=== PATIENT | male | born 1940 | race Caucasian/White ===

== ENCOUNTER → 2020-01-28 09:44 | Outpatient (BNVA) | payer MEDICARE, OTHER, SELFPAY | PROVIDERS: PCP Internal Medicine; Visit Provider Urology | DX: C61 Malignant neoplasm of prostate (principal) | CPT/HCPCS: 96402; J9217 ==

== ENCOUNTER → 2020-07-28 10:26 | Outpatient (BNVA) | payer MEDICARE, SELFPAY | PROVIDERS: Visit Provider Urology | DX: C61 Malignant neoplasm of prostate (principal) | CPT/HCPCS: 96402; 99212; J9217 ==

== ENCOUNTER → 2021-02-14 10:32 | Outpatient (BNVA) | payer MEDICARE, SELFPAY | PROVIDERS: Visit Provider Urology | DX: C61 Malignant neoplasm of prostate (principal) | CPT/HCPCS: 99212 ==

== ENCOUNTER → 2021-06-28 10:06 | Outpatient (BNVA) | payer MEDICARE, SELFPAY | PROVIDERS: Visit Provider Urology | DX: C61 Malignant neoplasm of prostate (principal) | CPT/HCPCS: Q3014 ==

== ENCOUNTER → 2021-11-29 08:49 | Outpatient (BNVA) | payer MEDICARE, SELFPAY | PROVIDERS: Visit Provider Urology | DX: C61 Malignant neoplasm of prostate (principal) | CPT/HCPCS: Q3014 ==

== ENCOUNTER → 2022-04-04 09:47 | Outpatient (BNVA) | payer MEDICARE, SELFPAY | PROVIDERS: Visit Provider Urology | DX: C61 Malignant neoplasm of prostate (principal); R97.20 Elevated prostate specific antigen [PSA]; Z79.82 Long term (current) use of aspirin; Z79.899 Other long term (current) drug therapy | CPT/HCPCS: Q3014 ==

== ENCOUNTER 2022-12-25 11:15 | Outpatient (AMB) | payer MEDICARE, SELFPAY ==
--- NOTE | 2022-12-25 11:48 | MHC.OFFVIS ---
Intake Intake Visit Reasons: 6m/PSA(set) Intake Note: Patient is present for Follow Up PSA Urology Med: Finasteride, Antibiotic Allergy: None Blood Thinner: None Pharmacy: [facility] Allergies No Known Allergies Allergy (Verified 12/25/22 11:49) HPI HPI Comments History of Present Illness Details Juan Antonio is a very pleasant male. He is a patient of Dr. Ventura. He is seen for the following urologic conditions - prostate cancer Prostate cancer Stable labs PSA 0.3 Feels good energy Discussed daughters the eldest had stage IV lung cancer on could true data, youngest has breast cancer on tamoxifen Prostate Cancer - Grade Group 3 2018 intermittent hormone therapy Diagnosed with Dr. Baltazar in 2018 Initial pathology [place] 6, 7. Component of [place] 4 + 3 Initial PSA 7.25 Initial management GnRH - he wanted to continue this rather than radiation - Last GnRH 04/2019 PSA 04/27 0.8, 01/25 <0.1, 07/27 <0.1, 01/26 <0.1 T 3, - 05/30 <0.1 T 106, 10/27 <0.1 T 285, 03/29 0.3 T 305, , 10/28 0.3 Current therapy finasteride - low level 3x a week Plan for PSA surveillance 6 months [facility] Medical History (Updated 11/29/21 @ 09:55 by Jose Irving MD) Gout Attention deficit hyperactivity disorder Allergic rhinitis Prostate cancer Elevated PSA Primary osteoarthritis of left wrist Surgical History History of surgery Review of Systems Const Denies chills and Denies fever(s) Card Reports no additional complaints and Denies syncope Resp Denies cough GI Denies abdominal pain and Denies heartburn Reports as per HPI and Denies change in libido Neuro Denies syncope Psych Denies change in libido Endo Denies change in libido Physical Exam Const General: cooperative, healthy appearing, comfortable and no acute distress Orientation/consciousness: patient oriented x3 HEENT Face and sinus: Yes normal facial exam Mouth: moist mucous membranes Neck Neck: Yes normal visual inspection, Yes full ROM and Yes trachea midline Chest Chest palpation & inspection: normal inspection of the chest Resp Effort & Inspection: normal respiratory effort, able to speak in complete sentences and no respiratory distress GI Inspection: Yes normal to inspection Back/Spine/Pelvis Cervical Spine: normal cervical lordosis Thoracic/Lumbar Spine: thoracic and lumbar spine normal to inspection Skin General skin exam: no rashes or lesions noted Neuro General: patient oriented x3, gait normal, tone normal and moves all extremities Extrem General: Yes normal to inspection and Yes capillary refill normal Assessment & Plan Assessment & Plan (1) Prostate cancer: Comment: Grade group 3 - intermittent hormone therapy Code(s): C61 - Malignant neoplasm of prostate Plan Six month follow-up PSA Orders: Orders Prostate Specific Antigen 6 Months C61 - Malignant neoplasm of prostate Patient Instructions: Imaging studies, laboratory and physical exam results were discussed and reviewed in detail. No major barriers to patient understanding were identified. An opportunity to ask questions regarding the treatment plan was provided. All questions were answered. The patient expressed understanding and agreement with the above treatment plan. The patient is aware they should contact our office by phone for worsening of their current condition or the appearance of new urologic symptoms. Compliance is encouraged with any medications and followup testing that is ordered. It is a privilege to participate in the urologic care of your patient. If you have any questions or concerns regarding treatment for the above conditions, or other urologic issues, please do not hesitate to contact me. The office telephone contact is [phone]. This note is constructed using voice recognition software. While every effort has been made to ensure accuracy medical transcription editor errors may have been included. Yours sincerely, Dr Jose Irving MD, [facility] - Urology Providers of Expert, Compassionate Care for the Genitourinary System Coding Level of Care Code Est Pt Level 4 (72596) Diagnoses Prostate cancer C61
== END 2022-12-25 12:05 | disposition home or self-care (01) ==
PROVIDERS: Visit Provider Urology
DX: C61 Malignant neoplasm of prostate (principal)
CPT/HCPCS: 99213

== ENCOUNTER → 2022-12-25 11:15 | Outpatient (BNVA) | payer MEDICARE, SELFPAY | PROVIDERS: Visit Provider Urology | DX: C61 Malignant neoplasm of prostate (principal); R97.20 Elevated prostate specific antigen [PSA]; Z80.1 Family history of malignant neoplasm of trachea, bronchus and lung; Z80.3 Family history of malignant neoplasm of breast | CPT/HCPCS: 99212 ==

== ENCOUNTER 2023-06-25 08:39 | Outpatient (AMB) | payer MEDICARE, SELFPAY ==
--- NOTE | 2023-06-25 08:40 | MHC.OFFVIS ---
Intake Intake Visit Reasons: 6M PSA(SET)VM to confirm Intake Note: Patient is Present for Follow Up PSA Urology Medication:Finasteride Antibiotic Allergies: None Blood Thinners: None Confirmed pharmacy: [facility] Allergies No Known Allergies Allergy (Verified 06/25/23 08:43) HPI HPI Comments History of Present Illness Details Juan Antonio is a very pleasant male. He is a patient of Dr. Ventura. He is seen for the following urologic conditions - prostate cancer - intermittent hormone therapy Stable labs PSA 0.4 Otherwise feeling relatively good control of urination Discussed daughters the eldest had stage IV lung cancer on Keytruda, youngest has breast cancer on tamoxifen Prostate Cancer - Grade Group 3 2018 intermittent hormone therapy Diagnosed with Dr. Baltazar in 2018 Initial pathology [place] 6, 7. Component of [place] 4 + 3 Initial PSA 7.25 Initial management GnRH - he wanted to continue this rather than radiation - Last GnRH 04/2019 PSA 04/27 0.8, 01/25 <0.1, 07/27 <0.1, 01/26 <0.1 T 3, - 05/30 <0.1 T 106, 10/27 <0.1 T 285, 03/29 0.3 T 305, , 10/28 0.3, 06/29 0.4 Current therapy finasteride - low level 3x a week Plan for PSA surveillance 6 months PFSH Medical History Gout Attention deficit hyperactivity disorder Allergic rhinitis Prostate cancer Elevated PSA Primary osteoarthritis of left wrist Surgical History History of surgery Review of Systems Const Denies chills and Denies fever(s) Card Reports no additional complaints and Denies syncope Resp Denies cough GI Denies abdominal pain and Denies heartburn Reports as per HPI and Denies change in libido Neuro Denies syncope Psych Denies change in libido Endo Denies change in libido Physical Exam Const General: cooperative, healthy appearing, comfortable and no acute distress Orientation/consciousness: patient oriented x3 HEENT Face and sinus: Yes normal facial exam Mouth: moist mucous membranes Neck Neck: Yes normal visual inspection, Yes full ROM and Yes trachea midline Chest Chest palpation & inspection: normal inspection of the chest Resp Effort & Inspection: normal respiratory effort, able to speak in complete sentences and no respiratory distress GI Inspection: Yes normal to inspection Back/Spine/Pelvis Cervical Spine: normal cervical lordosis Thoracic/Lumbar Spine: thoracic and lumbar spine normal to inspection Skin General skin exam: no rashes or lesions noted Neuro General: patient oriented x3, gait normal, tone normal and moves all extremities Extrem General: Yes normal to inspection and Yes capillary refill normal Assessment & Plan Assessment & Plan (1) Prostate cancer: Comment: Grade group 3 - intermittent hormone therapy Code(s): C61 - Malignant neoplasm of prostate Plan Six-month follow-up PSA Orders: Orders Prostate Specific Antigen 6 Months C61 - Malignant neoplasm of prostate Patient Instructions: Imaging studies, laboratory and physical exam results were discussed and reviewed in detail. No major barriers to patient understanding were identified. An opportunity to ask questions regarding the treatment plan was provided. All questions were answered. The patient expressed understanding and agreement with the above treatment plan. The patient is aware they should contact our office by phone for worsening of their current condition or the appearance of new urologic symptoms. Compliance is encouraged with any medications and followup testing that is ordered. It is a privilege to participate in the urologic care of your patient. If you have any questions or concerns regarding treatment for the above conditions, or other urologic issues, please do not hesitate to contact me. The office telephone contact is [phone]. This note is constructed using voice recognition software. While every effort has been made to ensure accuracy racking technician errors may have been included. Yours sincerely, Dr Jose Irving MD, [facility] - Urology Providers of Expert, Compassionate Care for the Genitourinary System Coding Level of Care Code Est Pt Level 3 (28148) Diagnoses Prostate cancer C61
== END 2023-06-25 09:31 | disposition home or self-care (01) ==
PROVIDERS: Visit Provider Urology
DX: C61 Malignant neoplasm of prostate (principal)
CPT/HCPCS: 99213

== ENCOUNTER → 2023-06-25 08:39 | Outpatient (BNVA) | payer MEDICARE, SELFPAY | PROVIDERS: Visit Provider Urology | DX: C61 Malignant neoplasm of prostate (principal) | CPT/HCPCS: 99212 ==

== ENCOUNTER 2024-01-22 09:46 | Outpatient (AMB) | payer MEDICARE, SELFPAY ==
--- NOTE | 2024-01-22 09:46 | A.OFFVIS_ITS ---
Intake Visit Reasons: 6M PSA(set) Intake Note: Patient is Present for Telephone Follow Up PSA Urology Med: Finasteride Antibiotic Allergy: None Blood Thinner:None Recent PSA: 12/20/23 PSA: 0.4 Analytical Lab Analyst Required: No Accompanied by: Self / Same As Patient Allergies No Known Allergies Allergy (Verified 01/22/24 09:48) HPI Comments Details: Juan Antonio is a very pleasant male. He is a patient of Dr. Ventura. He is seen for the following urologic conditions - prostate cancer - intermittent hormone therapy Telemedicine Evaluation 15 min Consultation [employer] [place] Video 6 month follow-up Stable labs PSA 0.4 Otherwise feeling relatively good control of urination Discussed daughters the eldest had stage IV lung cancer on Keytruda, youngest has breast cancer on tamoxifen Prostate Cancer - Grade Group 3 2018 intermittent hormone therapy Diagnosed with Dr. Baltazar in 2018 Initial pathology [place] 6, 7. Component of [place] 4 + 3 Initial PSA 7.25 Initial management GnRH - he wanted to continue this rather than radiation - Last GnRH 04/2019 PSA 04/27 0.8, 01/25 <0.1, 07/27 <0.1, 01/26 <0.1 T 3, 05/30 <0.1 T 106, 10/27 <0.1 T 285, 03/29 0.3 T 305, , 10/28 0.3, 06/29 0.4, 12/30 0.4 Current therapy finasteride - low level 3x a week Plan for PSA surveillance 6 months PFS Medical History Gout Attention deficit hyperactivity disorder Allergic rhinitis Prostate cancer Elevated PSA Primary osteoarthritis of left wrist Surgical History History of surgery Review of Systems Const All systems reviewed & are unremarkable except as noted in HPI and below Reports no additional complaints Resp Reports no additional complaints GI Reports no additional complaints Reports as per HPI Musc Reports no additional complaints Physical Exam Telemedicine evaluation Appropriate responses Regular breathing rate and rhythm HEENT Head: Yes normal to inspection Ears: hearing grossly normal bilaterally Eyes General: appearance normal, both eyes and all related structures Neck Neck: Yes normal visual inspection Chest Chest palpation & inspection: normal inspection of the chest Resp Effort & Inspection: normal respiratory effort and able to speak in complete sentences Telehealth Telehealth Telehealth Platform: [employer] Location of provider rendering services: practice address Location of patient: address on file Patient Identification confirmed using: Name, : Yes Telehealth method: video Patient verbally consented to treatment: Yes Patient verbally consented to billing insurance company: Yes Patient informed of any privacy concerns related to visit: Yes Minutes spent on Phone/Video with Pt.: 15 Assessment & Plan Assessment & Plan (1) Prostate cancer: Comment: Grade group 3 - intermittent hormone therapy Code(s): C61 - Malignant neoplasm of prostate Category: Medical Plan Six-month follow-up PSA Orders: Orders Prostate Specific Antigen 6 Months C61 - Malignant neoplasm of prostate Patient Instructions: Imaging studies, laboratory and physical exam results were discussed and reviewed in detail. No major barriers to patient understanding were identified. An opportunity to ask questions regarding the treatment plan was provided. All questions were answered. The patient expressed understanding and agreement with the above treatment plan. The patient is aware they should contact our office by phone for worsening of their current condition or the appearance of new urologic symptoms. Compliance is encouraged with any medications and followup testing that is ordered. It is a privilege to participate in the urologic care of your patient. If you have any questions or concerns regarding treatment for the above conditions, or other urologic issues, please do not hesitate to contact me. The office telephone contact is [phone]. This note is constructed using voice recognition software. While every effort has been made to ensure accuracy dinkey engine firer/fireman errors may have been included. Yours sincerely, Dr Jose Irving MD, [facility] - Urology Providers of Expert, Compassionate Care for the Genitourinary System Coding Level of Care Code Tele Est Pt Level 3 (76952) Diagnoses Prostate cancer C61
== END 2024-01-22 14:06 | disposition home or self-care (01) ==
LOC: HO.HUSH 09:46
PROVIDERS: Visit Provider Urology
DX: C61 Malignant neoplasm of prostate (principal)
CPT/HCPCS: 99213

== ENCOUNTER → 2024-01-22 09:46 | Outpatient (BNVA) | payer MEDICARE, SELFPAY | PROVIDERS: Visit Provider Urology ==

== ENCOUNTER 2024-07-23 10:10 | Outpatient (AMB) | payer MEDICARE, SELFPAY ==
--- NOTE | 2024-07-23 10:10 | A.OFFVIS_ITS ---
Intake Visit Reasons: 6M PSA Intake Note: Patient is present for 6M/PSA Urology Medication:FINASTERIDE,ALLOPURINOL Antibiotic Allergy:NONE Blood Thinner:NONE Corporate Compliance Officer Required: No Allergies No Known Allergies Allergy (Verified 07/23/24 10:11) HPI Comments Details: Juan Antonio is a very pleasant male. He is a patient of Dr. Ventura. He is seen for the following urologic conditions - prostate cancer - intermittent hormone therapy Telemedicine Evaluation 15 min Consultation [email or web address] [place] Video 6 month follow-up Otherwise feeling relatively good control of urination Discussed daughters the eldest had stage IV lung cancer on Keytruda, youngest has breast cancer on tamoxifen Prostate Cancer - Grade Group 3 2018 intermittent hormone therapy Diagnosed with Dr. Baltazar in 2018 Initial pathology [place] 6, 7. Component of [place] 4 + 3 Initial PSA 7.25 Initial management GnRH - he wanted to continue this rather than radiation - Last GnRH 04/2019 PSA 04/27 0.8, 01/25 <0.1, 07/27 <0.1, 01/26 <0.1 T 3, 05/30 <0.1 T 106, 10/27 <0.1 T 285, 03/29 0.3 T 305, 10/28 0.3, 06/29 0.4, 12/30 0.4, 06/30 0.5 Current therapy finasteride - low level 3x a week Plan for PSA surveillance 6 months PFSH Medical History Gout Attention deficit hyperactivity disorder Allergic rhinitis Prostate cancer Elevated PSA Primary osteoarthritis of left wrist Surgical History History of surgery Review of Systems Const All systems reviewed & are unremarkable except as noted in HPI and below Reports no additional complaints Resp Reports no additional complaints GI Reports no additional complaints Reports as per HPI Musc Reports no additional complaints Physical Exam Telemedicine evaluation Appropriate responses Regular breathing rate and rhythm HEENT Head: Yes normal to inspection Ears: hearing grossly normal bilaterally Eyes General: appearance normal, both eyes and all related structures Neck Neck: Yes normal visual inspection Chest Chest palpation & inspection: normal inspection of the chest Resp Effort & Inspection: normal respiratory effort and able to speak in complete sentences Telehealth Telehealth Telehealth Platform: [employer] Private Location of provider rendering services: practice address Location of patient: address on file Patient Identification confirmed using: Name, : Yes Telehealth method: video Patient verbally consented to treatment: Yes Patient verbally consented to billing insurance company: Yes Patient informed of any privacy concerns related to visit: Yes Minutes spent on Phone/Video with Pt.: 15 Assessment & Plan Assessment & Plan (1) Prostate cancer: Comment: Grade group 3 - intermittent hormone therapy Code(s): C61 - Malignant neoplasm of prostate Category: Medical Plan Six-month follow-up PSA office Orders: Orders Testosterone, Total 6 Months C61 - Malignant neoplasm of prostate Prostate Specific Antigen 6 Months C61 - Malignant neoplasm of prostate Medications: Refilled finasteride to be taken Mondays, Wednesdays and Fridays 5 mg PO .MWF 90 days 90 tabs 1RF C61 - Malignant neoplasm of prostate Patient Instructions: This note is constructed using voice recognition software. While every effort has been made to ensure accuracy manager book errors may have been included. Imaging studies, laboratory and physical exam results were discussed and reviewed in detail. No major barriers to patient understanding were identified. An opportunity to ask questions regarding the treatment plan was provided. All questions were answered. The patient expressed understanding and agreement with the above treatment plan. The patient is aware they should contact our office by phone for worsening of their current condition or the appearance of new urologic symptoms. Compliance is encouraged with any medications and followup testing that is ordered. It is a privilege to participate in the urologic care of your patient. If you have any questions or concerns regarding treatment for the above conditions, or other urologic issues, please do not hesitate to contact me. The office telephone contact is [phone]. Sincerely, Dr Jose Irving MD, [facility] - Urology Compassionate Specialist Care for the Genitourinary System Coding Level of Care Code Tele Est Pt Level 4 (21948) Complex EM visit Add On G2211 Diagnoses Prostate cancer C61
--- OUTSIDE RECORDS SUMMARY | 2024-07-23 12:00 | XMS_ITS | Encounter Summary ---
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 This section includes the names of all active insurance providers for the patient. Insurance Provider Type of Coverage Plan Name Start of Policy Coverage End of Policy Coverage Group Number Member ID Insurance Provider's Telephone Number Policy Wheeler's Name Patient's Relationship to Policy Wheeler [facility] ([facility]) MEDICARE ADVANTAGE MCR ([facility]) Apr 08, 2016 [id number] JOLEEN MISHRA PATIENT [facility] ([facility]) MEDICARE ADVANTAGE MCR ([facility]) Apr 08, 2016 [id number] JOLEEN MISHRA PATIENT [facility] ([facility]) MEDICARE ADVANTAGE MCR ([facility]) Apr 08, 2014 [id number] JOLEEN MISHRA PATIENT OFFICE OF [facility] [employer] [facility] TORT FEASOR TORT FEASO R May 16, 2013 TORT FEASOR [id number] JOLEEN MISHRA PATIENT Selected Encounter This section includes the information on record at [place] for the Encounter. Date/Time Encounter Type Encounter Description Reason Provider Source Jul 14, 2024 09:30 AM OFFICE O/P EST MOD 30 MIN OPTOMETRY ICD-10-CM H40.1132 Primary open-angle glaucoma, bilateral, moderate stage VIKY CORONA Edi Encounter Template Text not used by [place] Assessments - Encounter Diagnoses This section includes the primary and secondary diagnoses documented for the Encounter. Date/Time Primary/Secondary Diagnosis Diagnosis Name Provider Source Jul 14, 2024 10:06 AM PRIMARY Primary open-angle glaucoma, bilateral, moderate stage VIKY CORONA [place] [facility] Jul 14, 2024 10:06 AM SECONDARY Dry eye syndrome of bilateral lacrimal glands CJVIKY Consuelo [place] [facility] Jul 14, 2024 10:06 AM SECONDARY Other chronic allergic conjunctivitis CORONAALLYVIKY Consuelo [place] [facility] Jul 14, 2024 10:06 AM SECONDARY Presbyopia CJALLYVIKY Consuelo [place] [facility] Jul 14, 2024 10:06 AM SECONDARY Presence of intraocular lens CORONAVIKY Cordero [place] [facility] Plan of Treatment: Future Appointments (+ 6 months) and Future Tests (+/- 45 days) The Plan of Treatment section includes future care activities for the [facility] [place] [facility] This section includes future appointments and future orders which are active, pending or scheduled. Future Appointments This section includes appointments that were scheduled to occur 6 months from the date of the Encounter, up to a maximum of 20 appointments. The data comes from all [place] treatment facilities. Appointment Date/Time Appointment Type Appointme nt Facility Name Jul 16, 2024 02:00 PM AMBULATORY [place]ICINE [place] [facility] August 26, 2024 09:00 AM AMBULATORY - PS[facility]CHIATRY [facility] Sep 08, 2024 10:30 AM AM[facility] [place] Sep 15, 2024 09:00 AM AMBULATORY [place] Sep 18, 2024 10:00 AM AMBULATORY - MEDICINE [facility] Nov 17, 2024 09:00 AM AMBULATORY - [place]ICINE [place] [facility] Dec 08, 2024 10:30 AM AMBULATORY - MEDICINE [facility] Active, Pending, and Scheduled Orders This section includes a listing of several types of active, pending, and scheduled orders, including clinic medications orders, diagnostic test orders, procedure orders and consult orders; where the start date of the order is 45 days before the date of the Encounter or 45 days after the date of theEncounter. The data comes from all [place] treatment facilities. Test Date/Time Test Type Test Details Facility Name Jul 14, 2024 09:38 AM Consult Order COMM[facility]ITY [facility]ARE-OPHTHALMOLOGY Cons [employer] Manager's Choice [facility] Lab Results: +/- 30 days of the encounter This section includes the Chemistry and Hematology Lab Results on record with [place] for the patient. Radiology Reports and Pathology Reports are provided separately, in subsequent sections. Lab Results This section contains the Chemistry/Hematology Results that were resulted 30 days before or 30 daysafter the date of the Encounter. Date/Time Source Result Type Result - Unit Interpretation Reference Range Specimen Type Comment Jun 30, 2024 01:26 PM FLUSHING TSH SERUM Specimen Type: SERUM No comment entered. Ordering Provider: ASIYA NORIEGA Report Released Date/Time: Jun 29, 2024 08:19 AM Reporting Lab: [facility] [address] [facility] [address] Performing Lab: [address] [address] TSH 0.36 u[IU]/mL 0.35-5.00 Jun 30, 2024 01:26 PM FLUSHING VITAMIN D (25-OH) SERUM Specimen Type : SERUM No comment entered. Ordering Provider: ASIYA NORIEGA Report Released Date/Time: Jun 29, 2024 08:19 AM Reporting Lab: [address] [address] Performing Lab: [address] [address] VITAMIN D (25-OH) 27 ng/mL 20-50 Jun 30, 2024 01:26 PM FLUSHING HEMOGLOBIN A1C PANEL BLOOD Specimen T ype: BLOOD Comment: Values obtained from A1C measurements can vary. For atypical A1C assays, a reported value of 7.0 could actually be between 6.72 and 7.28 if measured by a reference method. A reported value of 9.0 could actually be between 8.73 and 9.27. Ref: http://www.ngsp.org/CAPdata.asp Ordering Provider: ASIYA NORIEGA Report Released Date/Time: Jun 29, 2024 08:19 AM Reporting Lab: [address] [address] Performing Lab: [address] [address] HEMOGLOBIN A1C 5.2 4.0-5.6 Jun 30, 2024 01:26 PM FLUSHING LIPID PANEL, NON FASTING SERUM Specim en Type: SERUM No comment entered. Ordering Provider: ASIYA NORIEGA Report Released Date/Time: Jun 29, 2024 08:19 AM Reporting Lab: [address] [address] Performing Lab: [address] [address] CHOLESTEROL 172 mg/dL TRIGLYCERIDE 130 mg/dL 0-150 LDL calculated 82 mg/dL 0-129 CHOL/HDL 2.7 HDL CHOLESTEROL 64 mg/dL H 40-60 Jun 30, 2024 01:26 PM FLUSHING LIVER FUNCTION SERUM Specimen Type: SERUM No comment entered. Ordering Provider: ASIYA NORIEGA Report Released Date/Time: Jun 29, 2024 08:19 AM Reporting Lab: [address] [address] Performing Lab: [address] [address] PROTEIN,TOTAL 7.6 g/dL 6.0-8.3 ALBUMIN 4.1 g/dL 3.5-5.0 ALKALINE PHOSPHATASE 82 U/L 40-150 AST 19 U/L 5-34 ALT 23 U/L BILIRUBIN, TOTAL 1.5 mg/dL H 0.2-1.2 BILIRUBIN, DIRECT 0.5 mg/dL 0-0.5 Jun 30, 2024 01:26 PM FLUSHING BASIC METABOLIC PANEL (non-fasting) SERUM Specimen Type: SERUM No comment entered. Ordering Provider: ASIYA NORIEGA Report Released Date/Time: Jun 29, 2024 08:19 AM Reporting Lab: [address] [address] Performing Lab: [address] [address] UREA NITROGEN 28 mg/dL H 7-25 GLUCOSE 102 mg/dL H 65-100 SODIUM 139 mmol/L 135-145 POTASSIUM 4.4 mmol/L 3.5-5.0 CHLORIDE 107 mmol/L 100-110 CO2 23 meq/L 20-30 CALCIUM 10.3 mg/dL H 8.5-10.2 CREATININE, Serum 0.91 mg/dL 0.50-1.40 eGFR(CKD-EPI 2020) 84 mL/min >60 Jun 30, 2024 01:26 PM FLUSHING URIC ACID SERUM Sp ecimen Type: SERUM No comment entered. Ordering Provider: ASIYA NORIEGA Report Released Date/Time: Jun 29, 2024 08:19 AM Reporting Lab: [address] [address] Performing Lab: [address] [address] URIC ACID 6.5 mg/dL 3.5-7.2 Jun 30, 2024 01:26 PM FLUSHING CBC BLOOD Sp ecimen Type: BLOOD No comment entered. Ordering Provider: ASIYA NORIEGA Report Released Date/Time: Jun 29, 2024 08:19 AM Reporting Lab: [address] [address] Performing Lab: [address] [address] WBC 11.42 10*3/uL H 4.50-11.00 RBC 4.30 10*6/uL 4.23-5.66 HGB 13.4 g/dL 12.8-17 HCT 40.2 39.2-50.4 MCV 93.5 fL 82-99 MCHC 33.3 g/dL 30.8-35.1 PLT 337 10*3/uL 140-360 MPV 10.6 fL 9.2-12.4 RDW-CV 13.0 12.0-16.0 MCH 31.2 pg 26.2-32.6 Social History: Smoking Status (Most current) and Tobacco Use (All prior to encounter date) This section includes the most current, and the historical, smoking and tobacco- related health factors from the [place] facility where the Encounter took place. Current Smoking Status This section includes the most current smoking, or tobacco-related health factor, from the [place] facility where the Encounter took place. Date/Time Current Smoking Status Comment Facil emmett Jul 24, 2021 11:00 AM VA-TOBACCO NEVER USED [place] [facility] Encounter Notes: All associated encounter notes This section contains the clinical notes associated to the Encounter. Date/Time Encounter Note(s) Provider Source Jul 14, 2024 09:35 AM OPTOMETRY NOTE: LOCAL TITLE: OPTOMETRY NOTE STANDARD TITLE: OPTOMETRY NOTE DATE OF NOTE: JUL 14, 2024@09:35 ENTRY DATE: JUL 14, 2024@09:35:21 AUTHOR: VIKY CORONA EXP COSIGNER: URGENCY: STATUS: COMPLETED OPTOMETRY NOTE Has ADDENDA Please assist in ordering the following Duplicate(s): OD +3.00 0.00 X Add:0.00 Pzm:0.00 Dir: Prz2:0.00 Dir2: OS +2.25 0.00 X Add:0.00 Pzm:0.00 Dir: Prz2:0.00 Dir2: FITTING INFORMATION FPD: NPD: [place]:R:29.5 L:29.5 SEG HT:R: L: Tint:None Shade:None [place] Billable Items FRAME: STACIA IRIZARRY 60-17-150 Right Lens: POLY SINGLE VISION 1.586 POLY Left Lens: POLY SINGLE VISION 1.586 POLY KLEAR ANTI-REFLECTIVE COATING OD +2.25 0.00 X Add:0.00 Pzm:0.00 Dir: Prz2:0.00 Dir2: OS +1.50 0.00 X Add:0.00 Pzm:0.00 Dir: Prz2:0.00 Dir2: FITTING INFORMATION FPD: NPD: [place]:R:30.0 L:30.5 SEG HT:R: L: Tint:None Shade:None [place] Billable Items FRAME: STACIA FU 25-12-866 Right Lens: POLY SINGLE VISION 1.586 POLY Left Lens: POLY SINGLE VISION 1.586 POLY KLEAR ANTI-REFLECTIVE COATING /scott CORONA OD ACETYLENE CYLINDER PACKING MIXER Signed: 07/14/2024 10:07 Receipt Acknowledged By: 07/16/2024 08:18 /scott BAÑUELOS OPTOMETRY TECH 07/16/2024 ADDENDUM STATUS: COMPLETED Optometry Health Assistant Pressman ordered patient 2 pair(s) of SV eyeglasses on 07/14/2024 as directed by provider. OPT HT entered consult(s) for order on behalf of provider. /scott BAÑUELOS OPTOMETRY TECH Signed: 07/16/2024 08:17 VIKY CORONA [facility] Jul 14, 2024 07:28 AM OPTOMETRY NOTE: LOCAL TITLE: OPTOMETRY NOTE STANDARD TITLE: OPTOMETRY NOTE DATE OF NOTE: JUL 14, 2024@07:28 ENTRY DATE: JUL 14, 2024@07:28:14 AUTHOR: VIKY CORONA EXP COSIGNER: URGENCY: STATUS: COMPLETED Eye Examination for: AMADO MISHRA, 83 year old WHITE MALE ROBBIE: 4..24 [facility], 03.20.24 Dr. Washington (next 09.17.24) Reason for Visit/CC: Patient here for CEE. Denies changes in vision or other complaints. Current Ocular Meds: Artificial tears Zaditor OHx/HPI: 1. Moderate primary open-angle glaucoma OU managed surgically and happy with ongoing community care with Dr. Washington. 2. Pseudophakia OU 3. Dry Eye Syndrome OU with chronic allergic conjunctivitis component 4. 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 Under care of multiple providers ([facility] [id number]) H04.123 Dry eyes ([facility] [id number]) E78.5 Hyperlipidemia ([facility] [id number]) M10.9 Gout ([facility] [id number]) M17.9 Osteoarthritis of bilateral knee joints ([facility] [id number]) R41.840 Attention deficit hyperactivity disorder, combined type ([facility] [id number]) M47.26 Lumbar spondylosis ([facility] [id number]) Z12.11 Screening for malignant neoplasm of colon done ([facility] [id number]) 309.28 Adjustment disorder with mixed emotional features ([facility] [id number]) E55.9 Vitamin D deficiency ([facility] [id number]) R69. Nontoxic nodular thyroid goiter ([facility] [id number]) I10. Essential hypertension ([facility] [id number]) L30.9 Eczema ([facility] [id number]) SYSTEMIC MEDICATIONS/OCULAR MEDICATIONS: Active Outpatient Medications (including Supplies): Active Outpatient Medications Status 1) ALBUTEROL 90MCG (CFC-F) 200D ORAL INHL INHALE 1 PUFF BY ACTIVE MOUTH EVERY 8 HOURS NEEDED Indication: FOR BRONCHOSPASM 2) AMLODIPINE BESYLATE 5MG TAB TAKE ONE TABLET BY MOUTH ONCE ACTIVE DAILY FOR BLOOD PRESSURE/HEART, DO NOT TAKE WITH GRAPEFRUIT JUICE 3) CETIRIZINE HCL 10MG TAB TAKE ONE TABLET BY MOUTH ONCE DAILY ACTIVE NEEDED Indication: FOR ALLERGIES 4) CHOLECALCIF 50MCG (D3-2,000UNIT) TAB TAKE ONE TABLET BY ACTIVE MOUTH ONCE DAILY FOR VITAMIN SUPPLEMENTATION Indication: FOR VITAMIN D DEFICIENCY 5) HYALURONATE NA (DUROLANE)20MG/ML SYR 3ML INJECT 60MG ACTIVE INTRA-ARTICULAR ONE TIME Indication: OSTEOARTHRITIS OF THE KNEE 6) METHYLPHENIDATE HCL SR 20MG TAB TAKE ONE TABLET BY MOUTH HOLD THREE TIMES A DAY NEXT FILL 08/21/24 Indication: FOR ADHD 7) METOPROLOL TARTRATE 25MG TAB TAKE ONE TABLET BY MOUTH TWICE ACTIVE DAILY FOR BLOOD PRESSURE/HEART 8) PRAVASTATIN NA 20MG TAB TAKE ONE TABLET BY MOUTH ONCE DAILY ACTIVE FOR CHOLESTEROL ALLERGIES: Patient has answered NKA VITALS (most recent, as listed in the electronic record): B/P: 130/70 (06/08/2024 10:28) Pulse: 57 (03/24/2024 14:32) Temperature: 97.7 F [36.5 C] (03/24/2024 14:32) Weight: 206 lb [93.44 kg] (03/24/2024 14:32) Height: 75 in [190.5 cm] (03/24/2024 14:32) BMI: BMI: 25.8 PERTINENT LABS: HEMOGLOBIN A1C TREND Collection DT Spec HGBA1c 06/30/2024 13:26 BLOOD 5.2 02/18/2024 09:23 BLOOD 4.9 08/28/2023 08:45 BLOOD 5.3 08/14/2022 09:06 BLOOD 5.2 02/15/2022 10:07 BLOOD 5.3 (-) Smoker (never) Current Rx with last BCVA: OD: plano -1 OS: plano 20/15-1 Add: +2.50 20/20 DVA ( )sc ( x )cc - [x]phoropter []specs []CL OD: 20/20- slow OS: 20/20- Entrance Testing: Pupil: PERRL (-)APD EOM: SAFE OU, (-)Pain/Diplopia CVF: FTFC OU Subjective Refraction: OD: +0.50 20/15 OS: -0.25 20/15-2 Add: +2.50 SLE: Lids/Lashes: dermatochalasis OU, MGD OU Conjunctiva: white and quiet bulbar conj OU quiet palpebral conj OU Corneas: clear OU Iris: flat and clear OU, (-)TID OU AC: D & Q OU Angles: 4x4 OU TAP @ 9:33am OD 13 mmHg OS 11 mmHg [x]Garner []iCare []GAT Last IOP: OD: 12 OS: 11 Tmax: OD: 27 OS: 25 Percent Reduction in IOP: OD: 52% OS: 56% Undilated Fundus Exam: deferred 2/2 recent dilation privately Vit: syneresis OU Lens: PCIOL OU (-)PXF OU C/D (Size and Rim Description) OD 0.75 no focal notching, (+)thinning, pallor OS 0.75 no focal notching, (+)thinning, pallor (-)NVD/Drance heme OU PPole OD clear OS clear Macula OD flat and clear OS flat and clear A/V: normal caliber OU Assessment/Plan: 1. Moderate primary open-angle glaucoma OU currently off topical treatment following surgical intervention with appropriate reduction in IOP of greater than 50% each eye. No evidence of pigment dispersion or pseudoexfoliation OU. Positive family history of glaucoma. No acute change in ONH appearance. Low index of suspicion for progression at present. Managed in community by Dr. Washington. -Pt ed re today's findings -Pt ed re glaucoma as well as the natural history of this diagnosis including prognosis. -Stress importance of compliance and persistency with medications if indicated in future -Updated CC consult placed for continuation of care c Dr. Washington -Stress importance of continued follow-up appointments -[place] repeated back the plan and education. -RTC 1 year 2. Pseudophakia OU -Pt ed re today's findings and the importance of UV protection - repeated back the plan and education. -Monitor 3. Dry Eye Syndrome OU with chronic allergic conjunctivitis component - symptoms well controlled at present -Pt ed re today's findings -Continue Artificial Tears QID OU as needed -Continue Zaditor BID OU as needed -[place] repeated back the plan and education. -Monitor 4. Refractive Error and Presbyopia OU -Rx updated and ordered per pt request SVx2 -Monitor RTC 1 year or earlier PRN (x)Consult placed for community care: Dr. Washington Glasses adjusted/repaired in office: () Yes (x) No If yes, how many pairs: Total Time: 30 Minutes *This includes time spent before, during and after the visit occurring on the day of service and does not include procedures coded separately. Time includes chart review, examination, counseling of patient/family/caregiver, ordering medications, ordering tests, ordering procedures, referring and communicating with other HCP, and documentation in the electronic health record. Time does not include procedures coded separately, time spent on a different calendar day or time of clinical staff. Education: Glaucoma: Patient was educated regarding glaucoma/glaucoma suspect as well as the natural history of this diagnosis including prognosis. Stress importance of compliance and persistency with glaucoma medication when prescribed, timely follow up as well as the role of ancillary testing. Exclusion criteria for ancillary testing include significantly reduced acuity, mental status changes affecting the patient's ability to attend to the test or other physical limitations that would prohibit the patient's ability to participate in testing. Medication Reconciliation: Outpatient: Has the patient been taking medications as documented in the EMLR? YES: The patient has been taking medications as documented in the EMLR. Essential Medication List for Review used to complete this medication reconciliation. INCLUDED IN THIS LIST: Alphabetical list of active outpatient prescriptions dispensed from this [facility] (local) and dispensed from another [place] or [facility] facility (remote) as well as inpatient orders (local, pending and active), local clinic medications, locally documented non-VA medications, and local prescriptions that have or been discontinued in the past 90 days. - All changes in medications, including all non-VA/Herbal/OTC medications were entered into CPRS. - If there were any medications the patient should no longer take, they were discontinued. - The patient/caregiver was instructed to update this list, discard old lists, and take this list to the next appointment, whether with a VA or non-VA provider. Medication List: JLV Link Data on this list may not be complete. Please check JLV. Allergies/ADRs (Tool #5) FACILITY ALLERGY/ADR -------- [facility] No Known Allergies [facility] NO KNOWN ALLERGIES Med. Reconciliation (Tool #1) INCLUDED IN THIS LIST: Alphabetical list of active outpatient prescriptions dispensed from this [facility] (local) and dispensed from another [place] or [facility] facility (remote) as well as inpatient orders (local pending and active), local clinic medications, locally documented non-VA medications, and local prescriptions that have or been discontinued in the past 90 days. Non-VA Meds Last Documented On: May 25, 2008 NOTE The display of VA prescriptions dispensed from another [place] or [facility] facility (remote) is limited to active outpatient prescription entries matched to National Drug File at the originating site and may not include some items such as investigational drugs, compounds, etc. NOT INCLUDED IN THIS LIST: Medications self-entered by the patient into personal health records (i.e. [employer]) are NOT included in this list. Non-VA medications documented outside this VA, remote inpatient orders (regardless of status) and remote clinic medications are NOT included in this list. The patient and provider must always discuss medications the patient is taking, regardless of where the medication was dispensed or obtained. -------- OUTPT ALBUTEROL 90MCG (CFC-F) 200D ORAL INHL (Status = Active) INHALE 1 PUFF BY MOUTH EVERY 8 HOURS NEEDED FOR BRONCHOSPASM Rx# [id number] Last Released: 05/23/24 Qty/Days Supply: Rx Expiration Date: 03/25/25 Refills Remainin Indication: FOR BRONCHOSPASM OUTPT AMLODIPINE BESYLATE 5MG TAB (Status = Active) TAKE ONE TABLET BY MOUTH ONCE DAILY FOR BLOOD PRESSURE/HEART, DO NOT TAKE WITH GRAPEFRUIT JUICE Rx# [id number] Last Released: 06/05/24 Qty/Days Supply: Rx Expiration Date: 03/25/25 Refills Remainin OUTPT CARBOXYMETHYLCELLULOSE NA 0.5% OPH SOLN (Status = Discontinued) INSTILL 1 DROP INTO EACH EYE FOUR TIMES A DAY FOR DRY EYE Rx# [id number] Last Released: 07/12/23 Qty/Days Supply: Rx Expiration Date: 07/10/24 Refills Remainin Indication: FOR DRY EYE OUTPT CARBOXYMETHYLCELLULOSE NA 0.5% OPH SOLN (Status = Active/Suspended) INSTILL 1 DROP INTO EACH EYE FOUR TIMES A DAY FOR DRY EYE Rx# [id number] Last Released: Qty/Days Supply: Rx Expiration Date: 07/15/25 Refills Remainin Indication: FOR DRY EYE OUTPT CETIRIZINE HCL 10MG TAB (Status = Active) TAKE ONE TABLET BY MOUTH ONCE DAILY NEEDED FOR ALLERGIES Rx# [id number] Last Released: 05/07/24 Qty/Days Supply: Rx Expiration Date: 05/03/25 Refills Remainin Indication: FOR ALLERGIES OUTPT CHOLECALCIF 50MCG (D3-2,000UNIT) TAB (Status = Active) TAKE ONE TABLET BY MOUTH ONCE DAILY FOR VITAMIN SUPPLEMENTATION Rx# [id number] Last Released: 06/17/24 Qty/Days Supply: 100 Rx Expiration Date: 03/25/25 Refills Remainin Indication: FOR VITAMIN D DEFICIENCY OUTPT DICLOFENAC NA 1% TOP GEL (Status = ) APPLY 4 GRAMS TOPICALLY FOUR TIMES A DAY FOR OSTEOARTHRITIS - USE DOSING CARD PROVIDED IN BOX Rx# [id number] Last Released: 12/06/23 Qty/Days Supply: Rx Expiration Date: 05/02/24 Refills Remainin OUTPT HYALURONATE NA (DUROLANE)20MG/ML SYR 3ML (Status = Discontinued) INJECT 60MG INTRA-ARTICULAR ONE TIME Rx# [id number] Last Released: 12/19/23 Qty/Days Supply: Rx Expiration Date: 05/08/24 Refills Remainin Indication: OSTEOARTHRITIS OF THE KNEE OUTPT HYALURONATE NA (DUROLANE)20MG/ML SYR 3ML (Status = Active) INJECT 60MG INTRA-ARTICULAR ONE TIME Rx# [id number] Last Released: 06/03/24 Qty/Days Supply: Rx Expiration Date: 05/24/25 Refills Remainin Indication: OSTEOARTHRITIS OF THE KNEE OUTPT KETOTIFEN 0.025% OPH SOLN (Status = Discontinued) INSTILL 1 DROP INTO EACH EYE TWICE DAILY FOR ALLERGIC CONJUNCTIVITIS (IF YOU WEAR CONTACT LENSES, WAIT 10 MINUTES BEFORE INSERTING LENSES) Rx# [id number] Last Released: 07/12/23 Qty/Days Supply: Rx Expiration Date: 07/10/24 Refills Remainin Indication: FOR ALLERGIC CONJUNCTIVITIS OUTPT KETOTIFEN 0.025% OPH SOLN (Status = Active/Suspended) INSTILL 1 DROP INTO EACH EYE TWICE DAILY FOR ALLERGIC CONJUNCTIVITIS (IF YOU WEAR CONTACT LENSES, WAIT 10 MINUTES BEFORE INSERTING LENSES) Rx# [id number] Last Released: Qty/Days Supply: Rx Expiration Date: 07/15/25 Refills Remainin Indication: FOR ALLERGIC CONJUNCTIVITIS OUTPT METHYLPHENIDATE HCL SR 20MG TAB (Status = Discontinued) TAKE ONE TABLET BY MOUTH THREE TIMES A DAY FOR ADHD NEXT FILL 05/29/24 Rx# [id number] Last Released: 04/29/24 Qty/Days Supply: Rx Expiration Date: 05/14/24 Refills Remainin Indication: FOR ADHD OUTPT METHYLPHENIDATE HCL SR 20MG TAB (Status = Discontinued) TAKE ONE TABLET BY MOUTH THREE TIMES A DAY FOR ADHD NEXT FILL 06/26/24 Rx# [id number] Last Released: 05/26/24 Qty/Days Supply: Rx Expiration Date: 06/11/24 Refills Remainin Indication: FOR ADHD OUTPT METHYLPHENIDATE HCL SR 20MG TAB (Status = Discontinued) TAKE ONE TABLET BY MOUTH THREE TIMES A DAY FOR ADHD NEXT FILL 07/24/24 Rx# [id number] Last Released: 06/23/24 Qty/Days Supply: Rx Expiration Date: 07/09/24 Refills Remainin Indication: FOR ADHD OUTPT METHYLPHENIDATE HCL SR 20MG TAB (Status = On Hold) TAKE ONE TABLET BY MOUTH THREE TIMES A DAY FOR ADHD NEXT FILL 08/21/24 Rx# [id number] Last Released: Qt Supply: Rx Expiration Date: 08/06/24 Refills Remainin Indication: FOR ADHD OUTPT METOPROLOL TARTRATE 25MG TAB (Status = Active) TAKE ONE TABLET BY MOUTH TWICE DAILY FOR BLOOD PRESSURE/HEART Rx# [id number] Last Released: 06/06/24 Qty/Days Supply: 180/ Rx Expiration Date: 03/25/25 Refills Remainin OUTPT PRAVASTATIN NA 20MG TAB (Status = Active) TAKE ONE TABLET BY MOUTH ONCE DAILY FOR CHOLESTEROL Rx# [id number] Last Released: 06/27/24 Qty/Days Supply: Rx Expiration Date: 12/05/24 Refills Remainin -------- SUPPLIES -------- PHARMACY TERMS AND POSSIBLE PATIENT ACTIONS INPT = [place] inpatient order IV = [place] intravenous medication OUTPT = [place] outpatient prescription PHARMACY POSSIBLE PATIENT TERMS EXPLANATION ACTIONS -------- ACTIVE A prescription that can be If you have refills, filled at the local [place] pharmacy. you may request a refill of this prescription from your [place] pharmacy. CLINIC A medication you received during If you have questions a visit to a [place] clinic or about this medication emergency department. contact your [place] healthcare team. DISCONTINUED A prescription your provider has Contact your [facility] stopped. It is no longer healthcare team if you available to be sent to you or need more of this picked up at the [place] pharmacy medication. window. A prescription which is too old Contact your VA to fill. This does not refer to healthcare team if you the expiration date of the need more of this medication in the container. medication. NON-VA A medication that came from If this medication someplace other than a VA information is pharmacy. This may be a incorrect or out of prescription from either the VA date, please tell your or non VA providers that was VA healthcare team. filled outside the VA. Or, it may be an pwht-sra-micdcsx (OTC), herbal, dietary supplements or sample medication. ON HOLD An active prescription that will Contact your VA not be filled until pharmacy pharmacy when you need resolves the issue. more of this medication. PARKED An active prescription that will Contact your VA not be filled until the patient pharmacy when you need requests it. this medication. PENDING This prescription order has been If you have been sent to the pharmacy for review instructed to start and is not ready yet. this medication now, contact your VA pharmacy. SUSPENDED An active prescription that is Contact your VA not scheduled to be filled yet. pharmacy if you need You should receive it before this medication now. you run out. 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
--- OUTSIDE RECORDS SUMMARY | 2024-07-23 12:00 | XMS_ITS ---
Author Name [facility] Organization [facility] Address [address] [place] [id number] Care Team Providers Care Furnace Combustion Tester Name Role Phone ASIYA NORIEGA Primary Care [...] Wheeler's Name Patient's Relationship to Policy Wheeler [facility] ([facility]) MEDICARE ADVANTAGE MCR ([facility]) Apr 08, 2016 [id number] JOLEEN MISHRA PATIENT [facility] ([facility]) MEDICARE ADVANTAGE MCR ([facility]) Apr 08, 2016 [id number] JOLEEN MISHRA PATIENT [facility] ([facility]) MEDICARE ADVANTAGE MCR ([facility]) Apr 08, 2014 [id number] [phone] JOLEEN MISHRA PATIENT OFFICE OF REGIONAL NON DESTRUCTIVE TESTER CT TORT FEASOR TORT FEASO R May 16, 2013 TORT FEASOR [id number] JOLEEN MISHRA PATIENT Selected Encounter This section includes the information on record at DC for the Encounter. Date/Time Encounter Type Encounter Description Reason Provider Source Jun 08, 2024 10:30 AM OFFICE O/P EST MOD 30 MIN PM&RS PHYSICIAN ICD-10-CM M19.219 Secondary osteoarthritis, unspecified shoulder SHOSHANA SANCHEZ Zoe Enriquez [facility] Encounter Template Text not used by DC Assessments - Encounter Diagnoses This section includes the primary and secondary diagnoses documented for the Encounter. Date/Time Primary/Secondary Diagnosis Diagnosis Name Provider Source Jun 08, 2024 12:41 PM PRIMARY Secondary osteoarthritis, unspecified shoulder SANCHEZSHOSHANA Zoe Enriquez [place] [facility] [place] [facility] Jun 08, 2024 12:41 PM SECONDARY Unilateral primary osteoarthritis, right knee SHOSHANA SANCHEZ Zoe Enriquez [facility] [place] [facility] Plan of Treatment: Future Appointments (+ 6 months) and Future Tests (+/- 45 days) The Plan of Treatment section includes future care activities for the patient from all DC treatmentfacilities. This section includes future appointments and future orders which are active, pending or scheduled. Future Appointments This section includes appointments that were scheduled to occur 6 months from the date of the Encounter, up to a maximum of 20 appointments. The data comes from all DC treatment facilities. Appointment Date/Time Appointment Type Appointme nt Facility Name Jul 09, 2024 10:00 AM AMBULATORY - MEDICINE DC [facility] [place] [facility] Jul 14, 2024 09:30 AM AMBULATORY - MEDICINE DC [facility] [place] [facility] Jul 16, 2024 02:00 PM AMBULATORY - MEDICINE DC [facility] [place] [facility] August 26, 2024 09:00 AM AMBULATORY - PSYCHIATRY [facility] Sep 08, 2024 10:30 AM AMBULATORY - MEDICINE DC [facility] [place] [facility] Sep 15, 2024 09:00 AM AMBULATORY - MEDICINE DC [facility] [place] [facility] Sep 18, 2024 10:00 AM AMBULATORY - MEDICINE [facility] Nov 17, 2024 09:00 AM AMBULATORY - MEDICINE DC [facility] [place] [facility] Dec 08, 2024 10:30 AM AMBULATORY - MEDICINE DC [facility] [place] [facility] Active, Pending, and Scheduled Orders This section includes a listing of several types of active, pending, and scheduled orders, including clinic medications orders, diagnostic test orders, procedure orders and consult orders; where the start date of the order is 45 days before the date of the Encounter or 45 days after the date of theEncounter. The data comes from all [place] treatment facilities. Test Date/Time Test Type Test Details Facility Name Apr 27, 2024 01:54 PM Consult Order [facility]AUTOMOTIVE REFINISHER [employer] Infrastructure Engineer's Choice [facility] Jul 14, 2024 09:38 AM Consult Order [facility]OPHTHALMOLOGY [employer] Infrastructure Engineer's Choice [facility] Lab Results: +/- 30 days of the encounter This section includes the Chemistry and Hematology Lab Results on record with DC for the patient. Radiology Reports and Pathology Reports are provided separately, in subsequent sections. Lab Results This section contains the Chemistry/Hematology Results that were resulted 30 days before or 30 daysafter the date of the Encounter. Date/Time Source Result Type Result - Unit Interpretation Reference Range Specimen Type Comment Jun 30, 2024 01:26 PM [facility] TSH SERUM Specimen Type: SERUM No comment entered. Ordering Provider: ASIYA NORIEGA Report Released Date/Time: Jun 29, 2024 08:19 AM Reporting Lab: [address] [address] Performing Lab: [address] [address] TSH 0.36 u[IU]/mL 0.35-5.00 Jun 30, 2024 01:26 PM [facility] HEMOGLOBIN A1C PANEL BLOOD Specimen T ype: [...] Jun 29, 2024 08:19 AM Reporting Lab: [address] [address] Performing Lab: [address] [address] HEMOGLOBIN A1C 5.2 4.0-5.6 Jun 30, 2024 01:26 PM [facility] VITAMIN D (25-OH) SERUM Specimen Type : SERUM No comment entered. Ordering Provider: ASIYA NORIEGA Report Released Date/Time: Jun 29, 2024 08:19 AM Reporting Lab: [address] [address] Performing Lab: [address] [address] VITAMIN D (25-OH) 27 ng/mL 20-50 Jun 30, 2024 01:26 PM [facility] LIPID PANEL, NON FASTING SERUM Specim en Type: SERUM No comment entered. Ordering Provider: ASIYA NORIEGA Report Released Date/Time: Jun 29, 2024 08:19 AM Reporting Lab: [address] [address] Performing Lab: [address] [address] CHOLESTEROL 172 mg/dL TRIGLYCERIDE 130 mg/dL 0-150 LDL calculated 82 mg/dL 0-129 CHOL/HDL 2.7 HDL CHOLESTEROL 64 mg/dL H 40-60 Jun 30, 2024 01:26 PM [facility] LIVER FUNCTION SERUM Specimen Type: SERUM No comment entered. Ordering Provider: ASIYA NORIEGA Report Released Date/Time: Jun 29, 2024 08:19 AM Reporting Lab: [address] [address] Performing Lab: [address] [address] PROTEIN,TOTAL 7.6 g/dL 6.0-8.3 ALBUMIN 4.1 g/dL 3.5-5.0 ALKALINE PHOSPHATASE 82 U/L 40-150 AST 19 U/L 5-34 ALT 23 U/L BILIRUBIN, TOTAL 1.5 mg/dL H 0.2-1.2 BILIRUBIN, DIRECT 0.5 mg/dL 0-0.5 Jun 30, 2024 01:26 PM [facility] URIC ACID SERUM Sp ecimen Type: SERUM No comment entered. Ordering Provider: ASIYA NORIEGA Report Released Date/Time: Jun 29, 2024 08:19 AM Reporting Lab: [facility] [address] [facility] [address] Performing Lab: [address] [address] URIC ACID 6.5 mg/dL 3.5-7.2 Jun 30, 2024 01:26 PM [facility] BASIC METABOLIC PANEL (non-fasting) SERUM Specimen Type: SERUM No comment entered. Ordering Provider: ASIYA NORIEGA Report Released Date/Time: Jun 29, 2024 08:19 AM Reporting Lab: [address] [address] Performing Lab: [address] [address] UREA NITROGEN 28 mg/dL H 7-25 GLUCOSE 102 mg/dL H 65-100 SODIUM 139 mmol/L 135-145 POTASSIUM 4.4 mmol/L 3.5-5.0 CHLORIDE 107 mmol/L 100-110 CO2 23 meq/L 20-30 CALCIUM 10.3 mg/dL H 8.5-10.2 CREATININE, Serum 0.91 mg/dL 0.50-1.40 eGFR(CKD-EPI 2020) 84 mL/min >60 Jun 30, 2024 01:26 PM [facility] CBC BLOOD Sp ecimen Type: BLOOD No comment entered. Ordering Provider: ASIYA NORIEGA Report Released Date/Time: Jun 29, 2024 08:19 AM Reporting Lab: [address] [address] Performing Lab: [address] [address] WBC 11.42 10*3/uL H 4.50-11.00 RBC 4.30 10*6/uL 4.23-5.66 HGB 13.4 g/dL 12.8-17 HCT 40.2 39.2-50.4 MCV 93.5 fL 82-99 MCHC 33.3 g/dL 30.8-35.1 PLT 337 10*3/uL 140-360 MPV 10.6 fL 9.2-12.4 RDW-CV 13.0 12.0-16.0 MCH 31.2 pg 26.2-32.6 Vital Signs: All taken on the encounter date This section contains inpatient and outpatient Vital Signs collected on the date of the Encounter. Date/Time Temperature Pulse Blood Pressure Respiratory Rate SP02 Pain Height Weight Body Mass Index Source Jun 08, 2024 10:28 AM 130/70 [facility] Jun 08, 2024 10:27 AM 8 [facility] [place] [facility] Social History: Smoking Status (Most current) and Tobacco Use (All prior to encounter date) This section includes the most current, and the historical, smoking and tobacco- related health factors from the [place] facility where the Encounter took place. Current Smoking Status This section includes the most current smoking, or tobacco-related health factor, from the [place] facility where the Encounter took place. Date/Time Current Smoking Status Comment Facil ity Jul 24, 2021 11:00 AM VA-TOBACCO NEVER USED [facility] [place] [facility] Encounter Notes: All associated encounter notes This section contains the clinical notes associated to the Encounter. Date/Time Encounter Note(s) Provider Source Jun 08, 2024 11:11 AM PHYSICAL MEDICINE REHAB NOTE: LOCAL TITLE: PM&R BACK/JOINT PROCEDURE NOTE STANDARD TITLE: PHYSICAL MEDICINE REHAB NOTE DATE OF NOTE: JUN 08, 2024@11:11 ENTRY DATE: JUN 08, 2024@11:11:20 AUTHOR: JOAQUIM SANCHEZ COSIGNER: URGENCY: STATUS: COMPLETED PROCEDURE: Right intra-articular knee injection with hyluronic Acid, INDICATION: Knee pain.Osteoarthritis ANESTHESIA: None. INFORMED CONSENT: Obtained verbally, and through IMED. [place] has been making great gains since starting with the hyaluronic acid. The right knee is not nearly as bothersome as it had been. He is staying on a regimen is here for his 6-month injection. His ability to ambulate is improved. He is not having any pain. His pain levels usually do not exceed 2 out of 10 on an analog scale. The right shoulder however has been very uncomfortable. He was last injected December and his pain levels have been significant. He is having difficult time sleeping. He feels crepitus throughout the day. He tries to stay active to the best of his ability. Pain levels in this area can escalate to 6 out of 10 on an analog scale. His exam today demonstrates crepitus with circumduction. He has limited range of motion to 40 degrees of abduction. He is able to bring the arm across for cross body abduction. The biceps is not retracted. He has majority of his discomfort within the joint. No effusion was palpable. He has a weak rotator cuff with external rotation and abduction and internal rotation. X-rays were reviewed showing severe glenohumeral arthritis and calcification about the rotator cuff. The steps of the procedure, potential risks and benefits of the intra-articular knee injection, as well as alternatives were discussed with patient. The potential risks include, but not limited to: local injection reaction, pain, bruising/hematoma, nerve damage, adverse side effects to hyaluronic acid, infection, and swelling of the knee. Patient agreed to proceed with the injection. TIME OUT NOTE TIME:Jun@10:35 correctly stated: [X]Full name: AMADO MISHRA [X]Last #: [id number] [X]: Jul PROVIDER NAME: Joaquim Sanchez PA-c STAFF NAME: Ruth Kumari RN Lot #: [id number] Exp: 2026-11-05 The procedure was performed with the patient in the seated position. The affected knee was flexed . The anteromedial approach was performed and sterile techniques were utilized throughout today's procedure. Landmarks were palpated and the area of interest was marked. After cleaning the area with Povidone-iodine x 3, a 25G 1.5 needle and attached syringe were introduced superolaterally with 1 cc of 1 % lidocaine until loss of resistance. After negative aspiration for heme, 60 mg of Durolane was injected without difficulties. The needle was withdrawn and light compression was applied with a 2x2 gauze until bleeding stopped. A band-aid was applied. Attention was then paid to the right shoulder. Due to the severity of the osteoarthritis and intra-articular injection was necessary. Joint was palpated and marked. Skin was cleansed with chlorhexidine x 3. 25-gauge 1-1/2 inch needle was advanced towards the coracoid. Once make contact with os and with loss of resistance injected with 40 mg triamcinolone combination with 2 cc of 1% lidocaine and 2 cc of bupivacaine. Needle was withdrawn and Band-Aid was applied. Excellent anesthetic relief. No complications. No blood loss. The patient tolerated the procedure well without any immediate adverse side effects. Patient was instructed on the use of ice prn post injection pain/swelling. The patient was able to ambulate out of the office today, and was discharged home with instructions to monitor for any adverse reactions/side effects, and to contact me with any issues. Pre-procedure pain level: 09/15 Post-procedure pain level: 04/17 83-year-old presenting with glenohumeral arthritis and osteoarthritis of the right knee. Durolane injection was provided to the right knee today without incident. Reemphasized the need to avoid anti-inflammatories postinjection for 3 days. Return to clinic was posted for 6 months for repeat Durolane. Intra-articular injection can be provided for the right shoulder in 3 months. MDM: 25 minutes Medication Reconciliation: Outpatient: Has the patient been taking medications as documented in the EMLR? YES: The patient has been taking medications as documented in the EMLR. Essential Medication List for Review used to complete this medication reconciliation. INCLUDED IN THIS LIST: Alphabetical list of active outpatient prescriptions dispensed from this VA (local) and dispensed from another VA or DoD facility (remote) as well as [...] whether with a VA or non-VA provider. JLV Link Data on this list may not be complete. Please check JLV. Allergies/ADRs (Tool #5) FACILITY ALLERGY/ADR -------- [facility] [place] No Known Allergies [facility] NO KNOWN ALLERGIES Med Recon NoGlossary (Tool #1) INCLUDED IN THIS LIST: Alphabetical list of active outpatient prescriptions dispensed from this DC (local) and dispensed from another VA or DoD facility (remote) as well as inpatient orders (local pending and active), local clinic medications, locally documented non-VA medications, and local prescriptions that have or been discontinued in the past 90 days. Non-VA Meds Last Documented On: May 25, 2008 NOTE The display of VA prescriptions dispensed from another VA or [facility] facility (remote) is limited to active outpatient prescription entries matched to National Drug File at the originating site and may not include some items such as investigational drugs, compounds, etc. NOT INCLUDED IN THIS LIST: Medications self-entered by the patient into personal health records (i.e. [employer]) are NOT included in this list. Non-VA medications documented outside this DC, remote inpatient orders (regardless of status) and remote clinic medications are NOT included in this list. The patient and provider must always discuss medications the patient is taking, regardless of where the medication was dispensed or obtained. OUTPT ALBUTEROL 90MCG (CFC-F) 200D ORAL INHL (Status = Discontinued) INHALE 1 PUFF BY MOUTH EVERY 8 HOURS NEEDED FOR BRONCHOSPASM Rx# [id number] Last Released: 03/11/24 Qty/Days Supply: Rx Expiration Date: 08/30/24 Refills Remainin Indication: FOR BRONCHOSPASM OUTPT ALBUTEROL 90MCG (CFC-F) 200D ORAL INHL (Status = Active) INHALE 1 PUFF BY MOUTH EVERY 8 HOURS NEEDED FOR BRONCHOSPASM Rx# [id number] Last Released: 05/23/24 Qty/Days Supply: Rx Expiration Date: 03/25/25 Refills Remainin Indication: FOR BRONCHOSPASM OUTPT AMLODIPINE BESYLATE 5MG TAB (Status = Discontinued) TAKE ONE TABLET BY MOUTH ONCE DAILY FOR BLOOD PRESSURE/HEART, DO NOT TAKE WITH GRAPEFRUIT JUICE Rx# [id number] Last Released: 03/11/24 Qty/Days Supply: Rx Expiration Date: 06/20/24 Refills Remainin OUTPT AMLODIPINE BESYLATE 5MG TAB (Status = Active) TAKE ONE TABLET BY MOUTH ONCE DAILY FOR BLOOD PRESSURE/HEART, DO NOT TAKE WITH GRAPEFRUIT JUICE Rx# [id number] Last Released: 06/05/24 Qty/Days Supply: Rx Expiration Date: 03/25/25 Refills Remainin OUTPT CARBOXYMETHYLCELLULOSE NA 0.5% OPH SOLN (Status = Active) INSTILL 1 DROP INTO EACH EYE FOUR TIMES A DAY FOR DRY EYE Rx# [id number] Last Released: 07/12/23 Qty/Days Supply: Rx Expiration Date: 07/10/24 Refills Remainin Indication: FOR DRY EYE OUTPT CETIRIZINE HCL 10MG TAB (Status = Active) TAKE ONE TABLET BY MOUTH ONCE DAILY NEEDED FOR ALLERGIES Rx# [id number] Last Released: 05/07/24 Qty/Days Supply: Rx Expiration Date: 05/03/25 Refills Remainin Indication: FOR ALLERGIES OUTPT CHOLECALCIF 50MCG (D3-2,000UNIT) TAB (Status = Discontinued) TAKE ONE TABLET BY MOUTH ONCE DAILY FOR VITAMIN SUPPLEMENTATION Rx# [id number] Last Released: 03/11/24 Qty/Days Supply: Rx Expiration Date: 09/23/24 Refills Remainin Indication: FOR VITAMIN D DEFICIENCY OUTPT CHOLECALCIF 50MCG (D3-2,000UNIT) TAB (Status = Active/Suspended) TAKE ONE TABLET BY MOUTH ONCE DAILY FOR VITAMIN SUPPLEMENTATION Rx# [id number] Last Released: Qty/Days Supply: Rx Expiration Date: 03/25/25 Refills Remainin Indication: FOR VITAMIN D DEFICIENCY OUTPT DICLOFENAC NA 1% TOP GEL (Status = ) APPLY 4 GRAMS TOPICALLY FOUR TIMES A DAY FOR OSTEOARTHRITIS - USE DOSING CARD PROVIDED IN BOX Rx# [id number] Last Released: 12/06/23 Qty/Days Supply: / Rx Expiration Date: 05/02/24 Refills Remainin OUTPT HYALURONATE NA (DUROLANE)20MG/ML SYR 3ML (Status = Discontinued) INJECT 60MG INTRA-ARTICULAR ONE TIME Rx# [id number] Last Released: 12/19/23 Qty/Days Supply: Rx Expiration Date: 05/08/24 Refills Remainin Indication: OSTEOARTHRITIS OF THE KNEE OUTPT HYALURONATE NA (DUROLANE)20MG/ML SYR 3ML (Status = Active) INJECT 60MG INTRA-ARTICULAR ONE TIME Rx# [id number] Last Released: 06/03/24 Qty/Days Supply: Rx Expiration Date: 05/24/25 Refills Remainin Indication: OSTEOARTHRITIS OF THE KNEE OUTPT KETOTIFEN 0.025% OPH SOLN (Status = Active) INSTILL 1 DROP INTO EACH EYE TWICE DAILY FOR ALLERGIC CONJUNCTIVITIS (IF YOU WEAR CONTACT LENSES, WAIT 10 MINUTES BEFORE INSERTING LENSES) Rx# [id number] Last Released: 07/12/23 Qty/Days Supply: Rx Expiration Date: 07/10/24 Refills Remainin Indication: FOR ALLERGIC CONJUNCTIVITIS OUTPT METHYLPHENIDATE HCL SR 20MG TAB (Status = ) TAKE ONE TABLET BY MOUTH THREE TIMES A DAY FOR ADHD NEXT FILL 04/03/24 Rx# [id number] Last Released: 03/03/24 Qty/Days Supply: Rx Expiration Date: 03/19/24 Refills Remainin Indication: FOR ADHD OUTPT METHYLPHENIDATE HCL SR 20MG TAB (Status = Discontinued) TAKE ONE TABLET BY MOUTH THREE TIMES A DAY FOR ADHD NEXT FILL 05/01/24 Rx# [id number] Last Released: 03/31/24 Qty/Days Supply: Rx Expiration Date: 04/23/24 Refills Remainin Indication: FOR ADHD OUTPT METHYLPHENIDATE HCL SR 20MG TAB (Status = Discontinued) TAKE ONE TABLET BY MOUTH THREE TIMES A DAY FOR ADHD NEXT FILL 05/29/24 Rx# [id number] Last Released: 04/29/24 Qty/Days Supply: Rx Expiration Date: 05/14/24 Refills Remainin Indication: FOR ADHD OUTPT METHYLPHENIDATE HCL SR 20MG TAB (Status = Active) TAKE ONE TABLET BY MOUTH THREE TIMES A DAY FOR ADHD NEXT FILL 06/26/24 Rx# [id number] Last Released: 05/26/24 Qty/Days Supply: Rx Expiration Date: 06/11/24 Refills Remainin Indication: FOR ADHD OUTPT METOPROLOL TARTRATE 25MG TAB (Status = Discontinued) TAKE ONE TABLET BY MOUTH TWICE DAILY FOR BLOOD PRESSURE/HEART Rx# [id number] Last Released: 12/06/23 Qty/Days Supply: Rx Expiration Date: 09/26/24 Refills Remainin OUTPT METOPROLOL TARTRATE 25MG TAB (Status = Active) TAKE ONE TABLET BY MOUTH TWICE DAILY FOR BLOOD PRESSURE/HEART Rx# [id number] Last Released: 06/06/24 Qty/Days Supply: Rx Expiration Date: 03/25/25 Refills Remainin OUTPT PRAVASTATIN NA 20MG TAB (Status = Active/Suspended) TAKE ONE TABLET BY MOUTH ONCE DAILY FOR CHOLESTEROL Rx# [id number] Last Released: 03/26/24 Qty/Days Supply: Rx Expiration Date: 12/05/24 Refills Remainin SUPPLIES /hector/ JOAQUIM SANCHEZ [facility] Signed: 06/08/2024 12:41 JOAQUIM SANCHEZ [facility] [place] [facility]
--- OUTSIDE RECORDS SUMMARY | 2024-07-23 12:01 | XMS_ITS | Encounter Summary ---
Author Name [facility] ([facility]) Organization [facility]) Address [address] [place] [id number] Care Team Providers Care Bobbin Drier Name Role Phone ASIYA NORIEGA Primary Care [...] Wheeler's Name Patient's Relationship to Policy Wheeler [facility] ([facility]) MEDICARE ADVANTAGE MCR ([facility]) Apr 08, 2016 [id number] JOLEEN MISHRA PATIENT [facility] ([facility]) MEDICARE ADVANTAGE MCR ([facility]) Apr 08, 2016 [id number] JOLEEN MISHRA PATIENT [facility] ([facility]) MEDICARE ADVANTAGE MCR ([facility]) Apr 08, 2014 [id number] [phone] JOLEEN MISHRA PATIENT OFFICE OF [employer] CT TORT FEASOR TORT FEASO R May 16, 2013 TORT FEASOR [id number] JOLEEN MISHRA PATIENT Selected Encounter This section includes the information on record at ID for the Encounter. Date/Time Encounter Type Encounter Description Reason Provider Source Jul 16, 2024 02:00 PM HYPNOTHERAPY [facility] TREATMENT ICD-10-CM R41.840 Attention and concentration deficit YESENIA SHARIF Edi Encounter Template Text not used by [facility] Assessments - Encounter Diagnoses This section includes the primary and secondary diagnoses documented for the Encounter. Date/Time Primary/Secondary Diagnosis Diagnosis Name Provider Source Jul 16, 2024 02:58 PM PRIMARY Attention and concentration deficit KOLEYESENIA [facility] ([id number]) Plan of Treatment: Future Appointments (+ 6 months) and Future Tests (+/- 45 days) The Plan of Treatment section includes future care activities for the [facility] This section includes future appointments and future orders which are active, pending or scheduled. Future Appointments This section includes appointments that were scheduled to occur 6 months from the date of the Encounter, up to a maximum of 20 appointments. The data comes from all ID treatment facilities. Appointment Date/Time Appointment Type Appointme nt Facility Name August 26, 2024 09:00 AM AMBULATORY - PSYCHIATRY [facility] Sep 08, 2024 10:30 AM AMBULATORY - MEDICINE ID [facility] [place] [facility] Sep 15, 2024 09:00 AM AMBULATORY MEDICINE ID C [facility] [place] [facility] Sep 18, 2024 10:00 AM AMBULATORY - MEDICINE [facility] Nov 17, 2024 09:00 AM AMBULATORY - MEDICINE ID C [facility] [place] [facility] Dec 08, 2024 10:30 AM AMBULATORY - MEDICINE [facility] Active, Pending, and Scheduled Orders This section includes a listing of several types of active, pending, and scheduled orders, including clinic medications orders, diagnostic test orders, procedure orders and consult orders; where the start date of the order is 45 days before the date of the Encounter or 45 days after the date of theEncounter. The data comes from all ID treatment facilities. Test Date/Time Test Type Test Details Facility Name Jul 14, 2024 09:38 AM Consult Order COMMUNITY CARE-OPHTHALMOLOGY Cons Manager Human Resources's Choice ID [facility] Lab Results: +/- 30 days of the encounter This section includes the Chemistry and Hematology Lab Results on record with ID for the patient. Radiology Reports and Pathology Reports are provided separately, in subsequent sections. Lab Results This section contains the Chemistry/Hematology Results that were resulted 30 days before or 30 daysafter the date of the Encounter. Date/Time Source Result Type Result - Unit Interpretation Reference Range Specimen Type Comment Jun 30, 2024 01:26 PM KATY TSH SERUM Specimen Type: SERUM No comment entered. Ordering Provider: ASIYA NORIEGA Report Released Date/Time: Jun 29, 2024 08:19 AM Reporting Lab: [address] [phone] Performing Lab: [address] [address] TSH 0.36 u[IU]/mL 0.35-5.00 Jun 30, 2024 01:26 PM KATY HEMOGLOBIN A1C PANEL BLOOD Specimen T ype: [...] Jun 29, 2024 08:19 AM Reporting Lab: [address] [address] Performing Lab: [address] [address] HEMOGLOBIN A1C 5.2 4.0-5.6 Jun 30, 2024 01:26 PM KATY LIPID PANEL, NON FASTING SERUM Specim en Type: SERUM No comment entered. Ordering Provider: ASIYA NORIEGA Report Released Date/Time: Jun 29, 2024 08:19 AM Reporting Lab: [address] [address] Performing Lab: [address] [address] CHOLESTEROL 172 mg/dL TRIGLYCERIDE 130 mg/dL 0-150 LDL calculated 82 mg/dL 0-129 CHOL/HDL 2.7 HDL CHOLESTEROL 64 mg/dL H 40-60 Jun 30, 2024 01:26 PM KATY VITAMIN D (25-OH) SERUM Specimen Type : SERUM No comment entered. Ordering Provider: ASIYA NORIEGA Report Released Date/Time: Jun 29, 2024 08:19 AM Reporting Lab: [address] [address] Performing Lab: [address] [address] VITAMIN D (25-OH) 27 ng/mL 20-50 Jun 30, 2024 01:26 PM KATY LIVER FUNCTION SERUM Specimen Type: SERUM No comment entered. Ordering Provider: ASIYA NORIEGA Report Released Date/Time: Jun 29, 2024 08:19 AM Reporting Lab: [address] [address] Performing Lab: [address] [address] PROTEIN,TOTAL 7.6 g/dL 6.0-8.3 ALBUMIN 4.1 g/dL 3.5-5.0 ALKALINE PHOSPHATASE 82 U/L 40-150 AST 19 U/L 5-34 ALT 23 U/L BILIRUBIN, TOTAL 1.5 mg/dL H 0.2-1.2 BILIRUBIN, DIRECT 0.5 mg/dL 0-0.5 Jun 30, 2024 01:26 PM KATY BASIC METABOLIC PANEL (non-fasting) SERUM Specimen Type: SERUM No comment entered. Ordering Provider: ASIYA NORIEGA Report Released Date/Time: Jun 29, 2024 08:19 AM Reporting Lab: [address] [address] Performing Lab: [address] [address] UREA NITROGEN 28 mg/dL H 7-25 GLUCOSE 102 mg/dL H 65-100 SODIUM 139 mmol/L 135-145 POTASSIUM 4.4 mmol/L 3.5-5.0 CHLORIDE 107 mmol/L 100-110 CO2 23 meq/L 20-30 CALCIUM 10.3 mg/dL H 8.5-10.2 CREATININE, Serum 0.91 mg/dL 0.50-1.40 eGFR(CKD-EPI 2020) 84 mL/min >60 Jun 30, 2024 01:26 PM KATY URIC ACID SERUM Sp ecimen Type: SERUM No comment entered. Ordering Provider: ASIYA NORIEGA Report Released Date/Time: Jun 29, 2024 08:19 AM Reporting Lab: [address] [address] Performing Lab: [address] [address] URIC ACID 6.5 mg/dL 3.5-7.2 Jun 30, 2024 01:26 PM KATY CBC BLOOD Sp ecimen Type: BLOOD No comment entered. Ordering Provider: ASIYA NORIEGA Report Released Date/Time: Jun 29, 2024 08:19 AM Reporting Lab: [address] [address] Performing Lab: [address] [address] WBC 11.42 10*3/uL H 4.50-11.00 RBC 4.30 10*6/uL 4.23-5.66 HGB 13.4 g/dL 12.8-17 HCT 40.2 39.2-50.4 MCV 93.5 fL 82-99 MCHC 33.3 g/dL 30.8-35.1 PLT 337 10*3/uL 140-360 MPV 10.6 fL 9.2-12.4 RDW-CV 13.0 12.0-16.0 MCH 31.2 pg 26.2-32.6 Encounter Notes: All associated encounter notes This section contains the clinical notes associated to the Encounter. Date/Time Encounter Note(s) Provider Source Jul 16, 2024 04:28 PM ADDENDUM: LOCAL TITLE: Addendum STANDARD TITLE: ADDENDUM DATE OF NOTE: JUL 16, 2024@16:28 ENTRY DATE: JUL 16, 2024@16:28:01 AUTHOR: YESENIA SHARIF EXP COSIGNER: URGENCY: STATUS: COMPLETED Alerting [facility] to please call and schedule RTC for [facility] appt. Pt requests an appt in September 2024. Thank you! /hector/ Yesenia Sharif, PhD Clinical Psychologist Signed: 07/16/2024 16:28 Receipt Acknowledged By: 07/17/2024 12:18 /es/ ANNEMARIE CORREA [employer] DIV[employer] MANAGER --- Original Document --- 07/16/24 WHOLE HEALTH INDIVIDUAL NOTE: ID [employer] [facility] ([facility]) Standard Documentation [facility] Clinician Resources Only: E911 (Emergency Call Relay Center): [phone] National Veterans Crisis Line - 988 then press #1. ALEJANDRO Suicide Coordinator [phone], Ext. [phone]; Back-up Ext. [phone] [place] Police, ALEJANDRO, Paulie [phone] Introduction: Visit is being conducted by ID J[facility] Entendi. [place] identified with 2 identifiers: [X] Full Name [X] Date of [ ] VA ID Card Emergency Plan: [place] confirmed and/or provided the following information in case of emergency or technology failure. PATIENT PHONE - PHONE NUMBER [CELLULAR] - Is patient phone number correct, if not, enter below: 's phone number: AMADO MISHRA [address] [place], [place], [address] [place]'s present location and address for appointment: [address] [place] [address] [place]'s emergency contact name and phone number: E-Cont.: ERLIN CASTRO Relation Type: UNRELATED FRIEND/OTHER Relation Note: FRIEND [address] [place] [address] [facility] reported that location is private and safe: Yes Informed Consent: [place] informed of the risks and benefits of Telehealth video care. [place] has the right to refuse video services. If refuses video visit, a [id number] visit will be scheduled. verbalized consent for this video visit: Yes [place] provided consent for any other persons present for visit: N/A If yes, who and relationship to patient: Secure visit: Visit was locked for security and privacy: Yes Does this visit involve laterality/specific side of body? N/A Clinical Hypnosis Note VISIT DURATION: 47 minutes VISIT TYPE: Whole Health, Clinical Hypnosis visit PRIMARY CARE PROVIDER: Dr. Kathleen Patient Age: 83 Sex: MALE PERIOD OF SERVICE - [place] SERVICE CONNECTED % - NONE FOUND Session Type: Therapy with mixed interventions: Health/Behavior intervention Hypnotherapy IDENTIFIED PROBLEMS/WORKING DIAGNOSIS: Attention and Concentration Deficit (ICD-10-CM R41.840) (Primary) GOALS ADDRESSED DURING THIS SESSION: I want to be more likely to get the outcome that I want from my own self- hypnosis and procrastinate less. STRATEGIES/INTERVENTIONS USED: Health behavior intervention (23 minutes): [place] reported that he had been continuing to practice self-hypnosis, and stated that he was able to get himself into a hypnotic state. Noted that he was frustrated that sometimes he did not get the outcome that he wanted from his self-hypnosis, and expressed that I want perfection. Described that he also found himself procrastinating at a high level on some tasks, such as sending an email. Reported that sending this email would take a short amount of time, and he wanted to have it done by noon tomorrow. Stated that he was interested in focusing hypnosis today on improving the outcomes of his self-hypnosis and reducing his procrastination. Described that he would like to utilize the same techniques as the last session. Denied any potential triggers to avoid while in hypnotic state. Hypnotherapy (24 minutes): [place] gave consent for use of Hypnosis today Pre-Induction Talk: Financial Aids Officer provided psychoeducation about what clinical hypnosis is, the focused state of concentration, self-hypnosis, personalized suggestions, structure of session, possible side effects, clinical hypnosis as a tool, myths about hypnosis, and re-alerting. Induction: Peaceful place Deepener: PMR, light traveling bringing relaxation, going down 5 steps Suggestions: Ability to accomplish tasks when desired, increased motivation to take steps related to achieving goals, improved outcomes related to self- hypnosis practice Imagery/Metaphor: Seeing self in the future having already achieved goals and connecting to how it feels Post Hypnotic Suggestions: Bringing helpful parts of this experience with him, self-hypnosis, commitment to achieving goals, confidence in abilities Guided Imagery: Beach scene Cognitive Training: N/A RESPONSE TO TREATMENT SESSION: chose a spot to fix his gaze, closed his eyes at the end of the deepening stage, and appeared to enter a hypnotic state. Upon re-alerting, Devyn reported that was comprehensive, I have not achieved that level myself before. Noted that he felt he learned a couple things from this session that he could continue to use, and indicated that he enjoyed the experience. Described that he was initially looking at the image on his computer background and found this helpful to begin to elicit a hypnotic state. Requested a booster session in September 2024. [place] stated that he felt fully alert prior to ending the session. Denied any questions or concerns. EDUCATION: Education Given: N/A CURRENT IMPRESSION OF LETHALITY RISK / PLAN FOR RISK MANAGEMENT: No thoughts, intent or plan to harm self or others was reported. No imminent risk reported. MENTAL STATUS: [place] was oriented x3, mental status was WNL. No behavioral, perceptual or thought disturbances reported or observed. No concerns. PLAN FOR FOLLOW-UP: to return for follow up clinical hypnosis. /es/ Yesenia Sharif, PhD Clinical Psychologist Signed: 07/16/2024 16:27 YESENIA SHARIF [facility] ([id number]) Jul 16, 2024 02:00 PM INTEGRATIVE HEALTH NOTE: LOCAL TITLE: WHOLE HEALTH INDIVIDUAL NOTE STANDARD TITLE: INTEGRATIVE HEALTH NOTE DATE OF NOTE: JUL 16, 2024@14:00 ENTRY DATE: JUL 16, 2024@14:53:33 AUTHOR: YESENIA SHARIF EXP COSIGNER: URGENCY: STATUS: COMPLETED WHOLE HEALTH INDIVIDUAL NOTE Has ADDENDA ID Já Entendi ([facility]) Standard Documentation [facility] Clinician Resources Only: E911 (Emergency Call Relay Center): [phone] National Veterans Crisis Line - 988 then press #1. [facility] Suicide Coordinator [phone], Ext. [phone]; Back-up Ext. [phone] [place] Police, Paulie [place] [phone] Introduction: Visit is being conducted by [employer]. identified with 2 identifiers: [X] Full Name [X] Date of [ ] VA ID Card Emergency Plan: [place] confirmed and/or provided the following information in case of emergency or technology failure. PATIENT PHONE - PHONE NUMBER [CELLULAR] - Is patient phone number correct, if not, enter below: 's phone number: AMADO MISHRA [address] [place], [place], [address] 's present location and address for appointment: [address] [place] [address] 's emergency contact name and phone number: E-Cont.: ERLIN CASTRO Relation Type: UNRELATED FRIEND/OTHER Relation Note: FRIEND [address] [place] [address] [facility] [place] reported that location is private and safe: Yes Informed Consent: [place] informed of the risks and benefits of Telehealth video care. [place] has the right to refuse video services. If refuses video visit, a vegp-wq-[id number] visit will be scheduled. [place] verbalized consent for this video visit: Yes [place] provided consent for any other persons present for visit: N/A If yes, who and relationship to patient: Secure visit: Visit was locked for security and privacy: Yes Does this visit involve laterality/specific side of body? N/A Clinical Hypnosis Note VISIT DURATION: 47 minutes VISIT TYPE: [facility], Clinical Hypnosis visit PRIMARY CARE PROVIDER: Dr. Kathleen Patient Age: 83 Sex: MALE PERIOD OF SERVICE - [place] SERVICE CONNECTED % - NONE FOUND Session Type: Therapy with mixed interventions: Health/Behavior intervention Hypnotherapy IDENTIFIED PROBLEMS/WORKING DIAGNOSIS: Attention and Concentration Deficit (ICD-10-CM R41.840) (Primary) GOALS ADDRESSED DURING THIS SESSION: I want to be more likely to get the outcome that I want from my own self- hypnosis and procrastinate less. STRATEGIES/INTERVENTIONS USED: Health behavior intervention (23 minutes): [place] reported that he had been continuing to practice self-hypnosis, and stated that he was able to get himself into a hypnotic state. Noted that he was frustrated that sometimes he did not get the outcome that he wanted from his self-hypnosis, and expressed that I want perfection. Described that he also found himself procrastinating at a high level on some tasks, such as sending an email. Reported that sending this email would take a short amount of time, and he wanted to have it done by noon tomorrow. Stated that he was interested in focusing hypnosis today on improving the outcomes of his self-hypnosis and reducing his procrastination. Described that he would like to utilize the same techniques as the last session. Denied any potential triggers to avoid while in hypnotic state. Hypnotherapy (24 minutes): Devyn gave consent for use of Hypnosis today Pre-Induction Talk: Financial Aids Officer provided psychoeducation about what clinical hypnosis is, the focused state of concentration, self-hypnosis, personalized suggestions, structure of session, possible side effects, clinical hypnosis as a tool, myths about hypnosis, and re-alerting. Induction: Peaceful place Deepener: PMR, light traveling bringing relaxation, going down 5 steps Suggestions: Ability to accomplish tasks when desired, increased motivation to take steps related to achieving goals, improved outcomes related to self- hypnosis practice Imagery/Metaphor: Seeing self in the future having already achieved goals and connecting to how it feels Post Hypnotic Suggestions: Bringing helpful parts of this experience with him, self-hypnosis, commitment to achieving goals, confidence in abilities Guided Imagery: Beach scene Cognitive Training: N/A RESPONSE TO TREATMENT SESSION: Devyn chose a spot to fix his gaze, closed his eyes at the end of the deepening stage, and appeared to enter a hypnotic state. Upon re-alerting, Devyn reported that was comprehensive, I have not achieved that level myself before. Noted that he felt he learned a couple things from this session that he could continue to use, and indicated that he enjoyed the experience. Described that he was initially looking at the image on his computer background and found this helpful to begin to elicit a hypnotic state. Requested a booster session in September 2024. Devyn stated that he felt fully alert prior to ending the session. Denied any questions or concerns. EDUCATION: Education Given: N/A CURRENT IMPRESSION OF LETHALITY RISK / PLAN FOR RISK MANAGEMENT: No thoughts, intent or plan to harm self or others was reported. No imminent risk reported. MENTAL STATUS: was oriented x3, mental status was WNL. No behavioral, perceptual or thought disturbances reported or observed. No concerns. PLAN FOR FOLLOW-UP: [place] to return for follow up clinical hypnosis. /hector/ Yesenia Sharif, PhD Clinical Psychologist Signed: 07/16/2024 16:27 07/16/2024 ADDENDUM STATUS: COMPLETED Alerting [facility] to please call and schedule RTC for [facility] appt. Pt requests an appt in September 2024. Thank you! /hector/ Yesenia Sharif, PhD Clinical Psychologist Signed: 07/16/2024 16:28 Receipt Acknowledged By: * AWAITING SIGNATURE * ANNEMARIE CORREA [facility] ([id number])
--- OUTSIDE RECORDS SUMMARY | 2024-07-23 12:01 | XMS_ITS | Encounter Summary ---
Author Name [facility] [place] [facility] [place] Address [address] [place] [id number] Care Team Providers Care Time Study Analyst Name Role Phone ASIYA NORIEGA Primary Care [...] Wheeler's Name Patient's Relationship to Policy Wheeler [facility] ([facility]) MEDICARE ADVANTAGE MCR ([facility]) Apr 08, 2016 [id number] JOLEEN MISHRA PATIENT [facility] ([facility]) MEDICARE ADVANTAGE MCR ([facility]) Apr 08, 2016 [id number] JOLEEN MISHRA PATIENT [facility] ([facility]) MEDICARE ADVANTAGE MCR ([facility]) Apr 08, 2014 [id number] JOLEEN MISHRA PATIENT 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 Date/Time Encounter Type Encounter Description Reason Provider Source Sep 11, 2023 09:30 AM OFFICE O/P EST LOW 20 MIN [facility] - IND ICD-10-CM R41.840 Attention and concentration deficit HADLEYROQUE MO [facility] Encounter Template Text not used by [place] Assessments - Encounter Diagnoses This section includes the primary and secondary diagnoses documented for the Encounter. Date/Time Primary/Secondary Diagnosis Diagnosis Name Provider Source Sep 11, 2023 09:51 AM PRIMARY Attention and concentration deficit ROQUE HADLEY [place] Plan of Treatment: Future Appointments (+ 6 months) and Future Tests (+/- 45 days) The Plan of Treatment section includes future care activities for the patient from all [place] treatmentfacilities. This section includes future appointments and future orders which are active, pending or scheduled. Future Appointments This section includes appointments that were scheduled to occur 6 months from the date of the Encounter, up to a maximum of 20 appointments. The data comes from all [place] treatment facilities. Appointment Date/Time Appointment Type Appointme nt Facility Name Sep 20, 2023 09:00 AM AMBULATORY - MEDICINE [place] [facility] [place] [facility] Sep 23, 2023 10:30 AM AMBULATORY - REHAB MEDICIN E [place] [facility] [place] [facility] Nov 19, 2023 08:30 AM AMBULATORY - MEDICINE [place] [facility] [place] [facility] Dec 23, 2023 10:30 AM AMBULATORY - MEDICINE [place] [facility] [place] [facility] Dec 27, 2023 07:30 AM AMBULATORY - REHAB MEDICIN E [facility] [place] [facility] Jan 08, 2024 11:00 AM AMBULATORY - MEDICINE [place] [facility] [place] [facility] Jan 15, 2024 09:00 AM AMBULATORY - PSY[facility]IATRY [facility] Feb 28, 2024 10:30 AM AMBULATORY - MEDICINE [place] [facility] [place] [facility] Mar 10, 2024 03:00 PM AMBULATORY - MEDICINE [facility] [place] [facility] Lab Results: +/- 30 days of the encounter This section includes the Chemistry and Hematology Lab Results on record with [place] for the patient. Radiology Reports and Pathology Reports are provided separately, in subsequent sections. Lab Results This section contains the Chemistry/Hematology Results that were resulted 30 days before or 30 daysafter the date of the Encounter. Date/Time Source Result Type Result - Unit Interpretation Reference Range Specimen Type Comment September 05, 2023 10:22 AM [place] VITAMIN D 25-OH (Therapy monitor) SERUM Specimen Type: SERUM Comment: Vitamin D, 25-Hydroxy reports concentrations of two common forms, 25-OHD2 and 25-OHD3. 25-OHD3 indicates both endogenous production and supplementation. 25-OHD2 is an indicator of exogenous sources such as diet or supplementation. Therapy is based on measurement of Total 25-OHD, with levels <20 ng/mL indicative of Vitamin D deficiency, while levels between 20 ng/mL and 30 ng/mL suggest insufficiency. Optimal levels are > or = 30 ng/mL. For additional information, please refer to http://education. iFlexMe/faq/PLC817 (This link is being provided for informational/ educational purposes only.) This test was developed and its analytical performance characteristics have been determined by [facility] [place] [place]. It has not been cleared or approved by the U.S. Food and Drug Administration. This assay has been validated pursuant to the CLIA regulations and is used for clinical purposes. This test was developed and its analytical performance characteristics have been determined by [facility] [place] [place]. It has not been cleared or approved by the U.S. Food and Drug Administration. This assay has been validated pursuant to the CLIA regulations and is used for clinical purposes. Test Performed by [employer], [facility], [address] [place] [address] Yang More M.D., Ph.D., Director of Laboratories , CLIA [id number] TEST PERFORMED AT: , Ordering Provider: SONAL GOLD Report Released Date/Time: August 30, 2023 09:29 AM Reporting Lab: [facility] [address] [facility] [address] Performing Lab: [facility] [address] [address] VITAMIN D, 25-OH, TOTAL 27 ng/mL L 30-100 VITAMIN D, 25-OH, D3 27 ng/mL VITAMIN D, 25-OH, D2 <4 ng/mL September 05, 2023 10:22 AM [place] VITAMIN B12 SERUM Specimen Type: SERUM No comment entered. Ordering Provider: SONAL GOLD Report Released Date/Time: August 30, 2023 09:29 AM Reporting Lab: [address] [address] Performing Lab: [address] [address] VITAMIN B12 1133 pg/mL H 200-900 August 28, 2023 08:45 AM [place] LIPID PANEL FASTING SERUM Specimen Ty pe: SERUM No comment entered. Ordering Provider: SONAL GOLD Report Released Date/Time: August 14, 2023 09:10 AM Reporting Lab: [address] [address] Performing Lab: [address] [address] CHOLESTEROL 178 mg/dL TRIGLYCERIDE 131 mg/dL 0-150 LDL calculated 95 mg/dL 0-129 CHOL/HDL 3.1 HDL CHOLESTEROL 57 mg/dL 40-60 August 28, 2023 08:45 AM [place] HEMOGLOBIN A1C PANEL BLOOD Specimen T ype: BLOOD Comment: Values obtained from A1C measurements can vary. For atypical A1C assays, a reported value of 7.0 could actually be between 6.72 and 7.28 if measured by a reference method. A reported value of 9.0 could actually be between 8.73 and 9.27. Ref: http://www.ngsp.org/CAPdata.asp Ordering Provider: SONAL GOLD Report Released Date/Time: August 14, 2023 09:10 AM Reporting Lab: [address] [address] Performing Lab: [address] [address] HEMOGLOBIN A1C 5.3 4.0-5.6 August 28, 2023 08:45 AM [place] BASIC METABOLIC PANEL (non-fasting) SERUM Specimen Type: SERUM No comment entered. Ordering Provider: SONAL GOLD Report Released Date/Time: August 14, 2023 09:10 AM Reporting Lab: [address] [place] [address] Performing Lab: [address] [address] UREA NITROGEN 22 mg/dL 7-25 GLUCOSE 111 mg/dL H 65-100 SODIUM 137 mmol/L 135-145 POTASSIUM 4.6 mmol/L 3.5-5.0 CHLORIDE 104 mmol/L 100-110 CO2 24 meq/L 20-30 CREATININE, Serum 1.03 mg/dL 0.50-1.40 eGFR(CKD-EPI 2020) 73 mL/min >60 August 28, 2023 08:45 AM [place] LIVER FUNCTION SERUM Specimen Type: SERUM No comment entered. Ordering Provider: SONAL GOLD Report Released Date/Time: August 14, 2023 09:10 AM Reporting Lab: [address] [address] Performing Lab: [address] [address] PROTEIN,TOTAL 7.1 g/dL 6.0-8.3 ALBUMIN 4.0 g/dL 3.5-5.0 ALKALINE PHOSPHATASE 82 U/L 40-150 AST 18 U/L 5-34 ALT 21 U/L BILIRUBIN, TOTAL 1.4 mg/dL H 0.2-1.2 BILIRUBIN, DIRECT 0.5 mg/dL 0-0.5 August 28, 2023 08:45 AM [place] TSH SERUM Sp ecimen Type: SERUM No comment entered. Ordering Provider: SONAL GOLD Report Released Date/Time: August 14, 2023 09:10 AM Reporting Lab: [address] [address] Performing Lab: [address] [address] TSH 1.31 u[IU]/mL 0.35-5.00 August 28, 2023 08:45 AM [place] CBC AND DIFF (AUTO) BLOOD Specimen Ty pe: BLOOD No comment entered. Ordering Provider: SONAL GOLD Report Released Date/Time: August 14, 2023 09:10 AM Reporting Lab: [address] [address] Performing Lab: [place] [facility] Laura RAMOS [facility] [address] [address] WBC 9.42 10*3/uL 4.50-11.00 RBC 4.09 10*6/uL L 4.23-5.66 HGB 13.4 g/dL 12.8-17 HCT 40.0 39.2-50.4 MCV 97.8 fL 82-99 MCHC 33.5 g/dL 30.8-35.1 PLT 363 10*3/uL H 140-360 RDW-CV 13.1 12.0-16.0 Dade, Abs 0.73 10*3/uL 0.30-1.10 MCH 32.8 pg H 26.2-32.6 Neut % 59.3 43.7-75.8 Lymph % 29.3 14.0-42.3 Dade % 7.7 5.1-13.7 Eos % 1.5 0.4-6.8 Baso % 0.8 0.1-2.0 Neut, Abs 5.58 10*3/uL 2.20-7.60 Lymph, Abs 2.76 10*3/uL 1.00-3.20 Eos, Abs 0.14 10*3/uL 0.03-0.44 Baso, Abs 0.08 10*3/uL 0.01-0.13 Immature Gran % 1.4 H 0.0-0.7 Immature Gran, Abs 0.13 10*3/uL H 0.00-0.0 6 Social History: Smoking Status (Most current) and Tobacco Use (All prior to encounter date) This section includes the most current, and the historical, smoking and tobacco- related health factors from the [place] facility where the Encounter took place. Current Smoking Status This section includes the most current smoking, or tobacco-related health factor, from the [place] facility where the Encounter took place. Date/Time Current Smoking Status Comment Azam ity August 30, 2023 09:00 AM [place]-TOBACCO NEVER USED [place] Tobacco Use History This section includes a history of the smoking, or tobacco-related health factors, that were collected on or before the date of the Encounter. The data comes from the [place] facility where the Encounter took place. Date/Time Smoking Status/Tobacco Use [facility] August 22, 2022 10:00 AM [place]-TOBACCO NEVER USED [place] August 16, 2020 10:00 AM VA-TOBACCO NEVER USED [place] September 02, 2019 03:09 PM VA-TOBACCO NEVER USED [place] Sep 09, 2018 10:15 AM VA-TOBACCO NEVER USED [place] Oct 08, 2017 10:16 AM LIFETIME NON-TOBACCO USER [place] Aug 01, 2016 11:13 AM LIFETIME NON-TOBACCO USER [place] Apr 29, 2015 12:47 PM LIFETIME NON-TOBACCO USER has never smoked. [place] May 17, 2008 10:30 AM LIFETIME NON-TOBACCO USER [place] Encounter Notes: All associated encounter notes This section contains the clinical notes associated to the Encounter. Date/Time Encounter Note(s) Provider Source Sep 11, 2023 09:33 AM CLINICAL NURSE SPE CIALIST NOTE: LOCAL TITLE: CLINICAL NURSE SPECIALIST/MENTAL HEALTH STANDARD TITLE: CLINICAL NURSE SPECIALIST NOTE DATE OF NOTE: SEP 11, 2023@09:33 ENTRY DATE: SEP 11, 2023@09:33:47 AUTHOR: ROQUE HADLEY EXP COSIGNER: URGENCY: STATUS: COMPLETED [place] Video Connect (VVC) Standard Documentation VVC Clinician Resources Only: E911 (Emergency Call Relay Center): [phone] [facility] Crisis Line - 988 then press #1. [facility] Suicide Coordinator [phone], Ext. [phone]; Back-up Ext. [phone] [place] Police, ALEJANDRO Paulie [phone] Introduction: Visit is being conducted by [place] [employer] [facility]. [place] identified with 2 identifiers: [X] Full Name [X] Date of [ ] VA ID Card Emergency Plan: [place] confirmed and/or provided the following information in case of emergency or technology failure. PATIENT PHONE - PHONE NUMBER [CELLULAR] - Is patient phone number correct, if not, enter below: 's phone number: AMADO MISHRA P.[address] [place], [place], [address] [place]'s present location and address for appointment: home [place]'s emergency contact name and phone number: as listed [place] reported that location is private and safe: Yes Informed Consent: informed of the risks and benefits of Telehealth video care. [place] has the right to refuse video services. If refuses video visit, a [id number] visit will be scheduled. verbalized consent for this video visit: Yes [place] provided consent for any other persons present for visit: Yes If yes, who and relationship to patient: Secure visit: Visit was locked for security and privacy: Yes Pertinent symptoms: ADD- medication management He continues to support his daughters who have health problems. Very active in the community. He supports many activities Taking Ritalin HCL for ADD with good effect for concentration. Reports no side effects and sleeps very well. 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 Mood is stable. Has exercise routine. 1. Attention deficit hyperactivity disorder 2. Colonoscopy normal 3. Adjustment disorder with mixed emotional features 4. Closed fracture carpal bone 5. Narcotic drug user 6. Sacroiliac joint inflamed (SNOMED CT [id number]) 7. Shoulder: arthralgia * 8. Complete rupture of rotator cuff, nontraumatic 9. Backache 10. 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 Hypertension 13. Gout 14. Dermatitis or Eczema MENTAL STATUS Well groomed ,friendly Speech: normal rate, volume, and tone; answered questions appropriately understandable, and relevant to the topic. Mood: euthymic- No S/I Cognition: intact Memory grossly intact SI/HI: denied suicidal or homicidal ideation or intent Abnormal perceptions: no auditory or visual hallucinations. Thought process: linear Thought content: no delusions Insight/Judgment: Both good at present time. Family is stable - has 3 daughters Assessment: He remains engaged in his engineering project. 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 Remains active in community. He also volunteers with the [facility]. He states that he enjoys this work and continues to be active. He has joined a group which he enjoys Labs/Radiology/Tests/Consultation _x_ none ordered __ obtained: labs reviewed Plan Renew Methylphenidate 20mg tid x 30 days The rationale for the psychiatric medications and the alternatives to treatment were discussed with the patient. The side effect profile of the psychiatric medications was reviewed with the patient. Patient demonstrated reasonable understanding of the medication side effects and the above issues. The benefits of psychiatric medications outweigh risks for this patient. I asked the patient call [phone] ([facility]) or to come to open access if needed Medication Reconciliation: Outpatient: Has the patient been taking medications as documented in the EMLR? YES: The patient has been taking medications as documented in the EMLR. Essential Medication List for Review used to complete this medication reconciliation. INCLUDED IN THIS LIST: Alphabetical list of active outpatient prescriptions dispensed from this [facility] (local) and dispensed from another VA or [facility] facility (remote) as well as inpatient orders [...] whether with a VA or non-VA provider. /hector/ Roque Hadley APRN, STAFF CLINICAL NURSE SPECIALIST Signed: 09/11/2023 09:51 ROQUE HADLEYFIELD
--- OUTSIDE RECORDS SUMMARY | 2024-07-23 12:01 | XMS_ITS | Encounter Summary ---
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 Name Role Phone ASIYA NORIEGA Primary Care [...] to Policy Wheeler [facility] ([facility]) MEDICARE ADVANTAGE MCR ([facility]) Apr 08, 2016 [id number] JOLEEN MISHRA PATIENT [facility] ([facility]) MEDICARE ADVANTAGE MCR ([facility]) Apr 08, 2016 [id number] JOLEEN MISHRA PATIENT [facility] ([facility]) MEDICARE ADVANTAGE MCR ([facility]) Apr 08, 2014 [id number] JOLEEN MISHRA PATIENT OFFICE OF [facility] [employer] TORT FEASOR TORT FEASO R May 16, 2013 TORT FEASOR [id number] JOLEEN MISHRA PATIENT Selected Encounter This section includes the information on record at [place] for the Encounter. Date/Time Encounter Type Encounter Description Reason Provider Source Feb 28, 2024 10:30 AM OFFICE O/P EST LOW 20 MIN PM&RS PHYSICIAN ICD-10-CM M17.11 Unilateral primary osteoarthritis, right knee SHOSHANA SANCHEZ Zoe [facility] Encounter Template Text not used by DC Assessments - Encounter Diagnoses This section includes the primary and secondary diagnoses documented for the Encounter. Date/Time Primary/Secondary Diagnosis Diagnosis Name Provider Source Feb 28, 2024 10:56 AM PRIMARY Unilateral primary osteoarthritis, right knee CHENGSHOSHANA Enriquez [facility] [place] [facility] Feb 28, 2024 10:56 AM SECONDARY Other spondylosis, cervical region SHOSHANA SANCHEZ [facility] [place] [facility] Feb 28, 2024 10:56 AM SECONDARY Primary osteoarthritis, right shoulder [facility]NA [facility] Plan of Treatment: Future Appointments (+ 6 months) and Future Tests (+/- 45 days) The Plan of Treatment section includes future care activities for the patient [facility] This section includes future appointments and future orders which are active, pending or scheduled. Future Appointments This section includes appointments that were scheduled to occur 6 months from the date of the Encounter, up to a maximum of 20 appointments. The data comes from all [place] treatment facilities. Appointment Date/Time Appointment Type Appointme nt Facility Name Mar 10, 2024 03:00 PM AMBULATORY - MEDICINE [place] [facility] [place] [facility] Mar 24, 2024 02:30 PM AMBULATORY - MEDICINE [facility] May 20, 2024 09:00 AM AMBULATORY - PSYCHIATRY [facility] Jun 08, 2024 10:30 AM AMBULATORY - MEDICINE [place] [facility] [place] [facility] Jul 09, 2024 10:00 AM AMBULATORY - MEDICINE DC [facility] [place] [facility] Jul 14, 2024 09:30 AM AMBULATORY - MEDICINE DC [facility] [place] [facility] Jul 16, 2024 02:00 PM AMBULATORY - MEDICINE DC [facility] [place] [facility] August 26, 2024 09:00 AM AMBULATORY - PSYCHIATRY [facility] Active, Pending, and Scheduled Orders [...] Date/Time Test Type Test Details Facility Name Mar 24, 2024 07:12 PM Consult Order DERMATOLOG Y/[facility] (OUTPT) 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 Ordering Provider: ASIYA NORIEGA Report Released Date/Time: Feb 10, 2024 10:15 AM Reporting Lab: [address] [address] Performing Lab: [address] [address] CHOLESTEROL 155 mg/dL TRIGLYCERIDE 138 mg/dL 0-150 LDL calculated 81 mg/dL 0-129 CHOL/HDL 3.4 HDL CHOLESTEROL 46 mg/dL 40-60 Feb 18, 2024 09:23 AM [facility] LIVER FUNCTION SERUM Specimen Type: SERUM No comment entered. Ordering Provider: ASIYA NORIEGA Report Released Date/Time: Feb 10, 2024 10:15 AM Reporting Lab: [address] [address] Performing Lab: [address] [address] PROTEIN,TOTAL 6.8 g/dL 6.0-8.3 ALBUMIN 3.5 g/dL 3.5-5.0 ALKALINE PHOSPHATASE 90 U/L 40-150 AST 20 U/L 5-34 ALT 20 U/L BILIRUBIN, TOTAL 1.0 mg/dL 0.2-1.2 Feb 18, 2024 09:23 AM [facility] BASIC METABOLIC PANEL (fasting) SERUM Specimen Type: SERUM No comment entered. Ordering Provider: ASIYA NORIEGA Report Released Date/Time: Feb 10, 2024 10:15 AM Reporting Lab: [address] [address] Performing Lab: [address] [address] UREA NITROGEN 23 mg/dL 7-25 GLUCOSE 103 mg/dL H 65-100 SODIUM 139 mmol/L 135-145 POTASSIUM 4.6 mmol/L 3.5-5.0 CHLORIDE 108 mmol/L 100-110 CO2 20 meq/L 20-30 CREATININE, Serum 1.06 mg/dL 0.50-1.40 eGFR(CKD-EPI 2020) 70 mL/min >60 Feb 18, 2024 09:23 AM [facility] HEMOGLOBIN A1C PANEL BLOOD Specimen T ype: BLOOD Comment: Values obtained from A1C measurements can vary. For atypical A1C assays, a reported value of 7.0 could actually be between 6.72 and 7.28 if measured by a reference method. A reported value of 9.0 could actually be between 8.73 and 9.27. Ref: http://www.ngsp.org/CAPdata.asp Ordering Provider: ASIYA NORIEGA Report Released Date/Time: Feb 10, 2024 10:15 AM Reporting Lab: [address] [address] Performing Lab: [address] [address] HEMOGLOBIN A1C 4.9 4.0-5.6 Feb 18, 2024 09:23 AM [facility] CBC AND DIFF (AUTO) BLOOD Specimen Ty pe: BLOOD No comment entered. Ordering Provider: ASIYA NORIEGA Report Released Date/Time: Feb 10, 2024 10:15 AM Reporting Lab: [address] [address] Performing Lab: [address] [address] WBC 7.40 10*3/uL 4.50-11.00 RBC 4.22 10*6/uL L 4.23-5.66 HGB 13.2 g/dL 12.8-17 HCT 39.0 L 39.2-50.4 MCV 92.4 fL 82-99 MCHC 33.8 g/dL 30.8-35.1 PLT 378 10*3/uL H 140-360 RDW-CV 13.0 12.0-16.0 MONO, ABS 0.62 10*3/uL 0.30-1.10 MCH 31.3 pg 26.2-32.6 NEUT % 48.6 43.7-75.8 LYMPH % 35.5 14.0-42.3 MONO % 8.4 5.1-13.7 EOS % 5.3 0.4-6.8 BASO % 1.1 0.1-2.0 NEUT, ABS 3.60 10*3/uL 2.20-7.60 LYMPH, ABS 2.63 10*3/uL 1.00-3.20 EOS, ABS 0.39 10*3/uL 0.03-0.44 BASO, ABS 0.08 10*3/uL 0.01-0.13 IMMATURE GRAN % 1.1 H 0.0-0.7 IMMATURE GRAN, ABS 0.08 10*3/uL H 0.00-0.0 6 NRBC % 0.0 0.0-0.0 NRBC, ABS 0.00 10*3/uL 0.00-0.00 Vital Signs: All taken on the encounter date This section contains inpatient and outpatient Vital Signs collected on the date of the Encounter. Date/Time Temperature Pulse Blood Pressure Respiratory Rate SP02 Pain Height Weight Body Mass Index Source Feb 28, 2024 10:29 AM 130/70 8 [place] [facility] [place] [facility] Social History: Smoking Status (Most current) and [...] place. Date/Time Current Smoking Status Comment Azam christine Jul 24, 2021 11:00 AM VA-TOBACCO NEVER USED [place] [facility] [place] [facility] Encounter Notes: All associated encounter notes This section contains the clinical notes associated to the Encounter. Date/Time Encounter Note(s) Provider Source Feb 28, 2024 10:33 AM PHYSICAL MEDICINE REHAB NOTE: LOCAL TITLE: PM&R BACK/JOINT PROCEDURE NOTE STANDARD TITLE: PHYSICAL MEDICINE REHAB NOTE DATE OF NOTE: FEB 28, 2024@10:33 ENTRY DATE: FEB 28, 2024@10:33:05 AUTHOR: JOAQUIM SANCHEZ COSIGNER: URGENCY: STATUS: COMPLETED PROCEDURE: Subacromial Right shoulder injection with cortisone. INDICATION: Shoulder pain. MEDICATIONS:60 mg triamcinolone and 3mL of 1% lidocaine. HISTORY: presents today for follow-up to [facility]. Additionally he was seen by Dr. Александр Regalado for radiofrequency ablation of the cervical medial branches. He did quite nicely with this and neck pain has diminished approximately 3 out of 10. Has been quite helpful and he is much more active. He is able to do knee bends without a great deal of difficulty. He is walking more comfortably. He is more active in his daily life. Unfortunately the shoulder pain continues to be prominent particularly at nighttime. He has difficulty with any type of overhead activity. He has a great deal of grinding that he appreciates on a daily basis. Pain levels may be upwards of 8 out of 10 on an analog scale. He additionally is getting some numbness and tingling into the hand which is very positional. Dissipates as soon as he changes cervical position. EXAM: *Exam demonstrates restricted cervical range of motion. Spurling's maneuver was negative. Tenderness in the glenohumeral region was present. No effusion was noted. No tenderness over the acromioclavicular joint. Humerus is very elevated. Impingement was noted with crepitus. Cristobal and Neer positive. Negative Tinel's over the median nerve. Numbness is primarily over the dorsum of the hand consistent with C7. INFORMED CONSENT: Obtained verbally, and through IMED. The procedure as well as potential risks and benefits of a subacromial shoulder injection were discussed with patient, who agreed to proceed. The potential risks include, but not limited to: local injection reaction, pain, bruising/hematoma, nerve damage, temporary increase in blood sugar (if applicable), adverse side effects to cortisone or lidocaine including rash/itching, infection, and swelling of the shoulder. TIME OUT NOTE TIME:Feb@10:40 correctly stated: [X]Full name: AMADO MISHRA [X]Last 4 of #: [id number] [X]: Jul PROVIDER NAME: Joaquim Sanchez PA-c STAFF NAME: Ruth Kumari RN Lot #: [id number] exp: Patient was seated with right shoulder relaxed. Posterior lateral corner was palpated and marked at the soft spot Cleansed with povidone x3. A position 1 cm medial was then chosen. The joint was palpated .cleansed with chlorhexidine x 3 no touch approach was utilized. 25- gauge 1-1/2 inch needle was advanced in contact/slight medial direction until Contact made with os after negative aspiration for heme with loss of resistance, injectate was given. needle was withdrawn and light compression was applied with a 2x2 gauze until bleeding stopped. A band-aid was applied. No complications. No blood loss. The patient tolerated the procedure well without any immediate adverse side effects. Patient was instructed on the use of ice prn post injection pain/swelling. The patient was discharged home with instructions to monitor for any adverse reactions/side effects, and to contact me with any issues. Pre-procedure pain level: 5 Post-procedure pain level: 0 Assessment and plan: 83-year-old with severe osteoarthritis of the glenohumeral joint on the right injected today. Will repeat in June. Can repeat prior to this if shoulder pain increases. Otherwise we will plan on doing this when we do the repeat Durolane injection for the osteoarthritis of the right knee. Appreciate assistance from [facility] [employer] son radiofrequency ablation. Will hope for improvement for 6 months to a year. Medication Reconciliation: Outpatient: Has the patient been taking medications as documented in the EMLR? YES: The patient has been taking medications as documented in the EMLR. Essential Medication List for Review used to complete this medication reconciliation. INCLUDED IN THIS LIST: Alphabetical list of active outpatient prescriptions [facility]ensed from this [facility] (local) and dispensed from another DC or DoD facility (remote) as well as [...] JLV. Allergies/ADRs (Tool #5) FACILITY ALLERGY/ADR -------- [facility] [place] [facility] No Known Allergies [facility] NO KNOWN ALLERGIES [facility] (Tool #1) INCLUDED IN THIS LIST: Alphabetical list of active outpatient prescriptions dispensed from this DC (local) and dispensed from another DC or [facility] facility (remote) as well as inpatient orders (local pending and active), local clinic medications, locally documented non-VA medications, and local prescriptions that have or been discontinued in the past 90 days. Non-VA Meds Last Documented On: May 25, 2008 NOTE The display of VA prescriptions dispensed from another VA or DoD facility (remote) is limited to active outpatient prescription entries matched to National Drug File at the originating site and may not include some items such as investigational drugs, compounds, etc. NOT INCLUDED IN THIS LIST: Medications self-entered by the patient into personal health records (i.e. Packet[employer]) are NOT included in this list. Non-VA [...] EVERY 8 HOURS NEEDED FOR BRONCHOSPASM Rx# [id number] Last Released: 11/13/23 Qty/Days Supply: Rx Expiration Date: 08/30/24 Refills Remainin Indication: FOR BRONCHOSPASM OUTPT AMLODIPINE BESYLATE 5MG TAB (Status = Active/Suspended) TAKE ONE TABLET BY MOUTH ONCE DAILY FOR BLOOD PRESSURE/HEART, DO NOT TAKE WITH [employer] JUICE Rx# [id number] Last Released: 12/13/23 Qty/Days Supply: Rx Expiration Date: 06/20/24 Refills Remainin OUTPT CARBOXYMETHYLCELLULOSE NA 0.5% OPH SOLN (Status = Active) INSTILL 1 DROP INTO EACH EYE FOUR TIMES A DAY FOR DRY EYE Rx# [id number] Last Released: 07/12/23 Qty/Days Supply: Rx Expiration Date: 07/10/24 Refills Remainin Indication: FOR DRY EYE OUTPT CHOLECALCIF 50MCG (D3-2,000UNIT) TAB (Status = Active/Suspended) TAKE ONE TABLET BY MOUTH ONCE DAILY FOR VITAMIN SUPPLEMENTATION Rx# [id number] Last Released: 12/13/23 Qty/Days Supply: Rx Expiration Date: 09/23/24 Refills Remainin Indication: FOR VITAMIN D DEFICIENCY OUTPT DICLOFENAC NA 1% TOP GEL (Status = Active) APPLY 4 GRAMS TOPICALLY FOUR TIMES A DAY FOR OSTEOARTHRITIS - USE DOSING CARD PROVIDED IN BOX Rx# [id number] Last Released: 12/06/23 Qty/Days Supply: 400 Rx Expiration Date: 05/02/24 Refills Remainin OUTPT HYALURONATE NA (DUROLANE)20MG/ML SYR 3ML (Status = Active) INJECT 60MG INTRA-ARTICULAR ONE TIME Rx# [id number] Last Released: 12/19/23 Qty/Days Supply: Rx Expiration Date: 05/08/24 Refills Remainin Indication: OSTEOARTHRITIS OF THE KNEE OUTPT KETOTIFEN 0.025% OPH SOLN (Status = Active) INSTILL 1 DROP INTO EACH EYE TWICE DAILY FOR ALLERGIC CONJUNCTIVITIS (IF YOU WEAR CONTACT LENSES, WAIT 10 MINUTES BEFORE INSERTING LENSES) Rx# [id number] Last Released: 07/12/23 Qty/Days Supply: Rx Expiration Date: 07/10/24 Refills Remainin Indication: FOR ALLERGIC CONJUNCTIVITIS OUTPT METHYLPHENIDATE HCL SR 20MG TAB (Status = Discontinued) TAKE ONE TABLET BY MOUTH THREE TIMES A DAY FOR ADHD NEXT FILL 12/13/23 Rx# [id number] Last Released: 11/12/23 Qty/Days Supply: Rx Expiration Date: 12/03/23 Refills Remainin Indication: FOR ADHD OUTPT METHYLPHENIDATE HCL SR 20MG TAB (Status = Discontinued) TAKE ONE TABLET BY MOUTH THREE TIMES A DAY FOR ADHD NEXT FILL 01/10/24 Rx# [id number] Last Released: 12/11/23 Qty/Days Supply: Rx Expiration Date: 01/01/24 Refills Remainin Indication: FOR ADHD OUTPT METHYLPHENIDATE HCL SR 20MG TAB (Status = Discontinued) TAKE ONE TABLET BY MOUTH THREE TIMES A DAY FOR ADHD NEXT FILL 02/07/24 Rx# [id number] Last Released: 01/07/24 Qty/Days Supply: Rx Expiration Date: 01/22/24 Refills Remainin Indication: FOR ADHD OUTPT METHYLPHENIDATE HCL SR 20MG TAB (Status = ) TAKE ONE TABLET BY MOUTH THREE TIMES A DAY FOR ADHD NEXT FILL 03/06/24 Rx# [id number] Last Released: 02/04/24 Qty/Days Supply: Rx Expiration Date: 02/14/24 Refills Remainin Indication: FOR ADHD OUTPT METHYLPHENIDATE HCL SR 20MG TAB (Status = Active/Suspended) TAKE ONE TABLET BY MOUTH THREE TIMES A DAY FOR ADHD NEXT FILL 04/03/24 Rx# [id number] Last Released: Qty/Days Supply: Rx Expiration Date: 03/19/24 Refills Remainin Indication: FOR ADHD Non-VA METOPROLOL TARTRATE 25MG TAB TAKE ONE TABLET BY MOUTH TWICE DAILY OUTPT METOPROLOL TARTRATE 25MG TAB (Status = Active) TAKE ONE TABLET BY MOUTH TWICE DAILY FOR BLOOD PRESSURE/HEART Rx# [id number] Last Released: 12/06/23 Qty/Days Supply: Rx Expiration Date: 09/26/24 Refills Remainin OUTPT PRAVASTATIN NA 20MG TAB (Status = Discontinued) TAKE ONE TABLET BY MOUTH ONCE DAILY FOR CHOLESTEROL Rx# [id number] Last Released: 10/14/23 Qty/Days Supply: Rx Expiration Date: 06/20/24 Refills Remainin OUTPT PRAVASTATIN NA 20MG TAB (Status = Active) TAKE ONE TABLET BY MOUTH ONCE DAILY FOR CHOLESTEROL Rx# [id number] Last Released: 01/11/24 Qty/Days Supply: Rx Expiration Date: 12/05/24 Refills Remainin SUPPLIES /hector/ JOAQUIM SANCHEZ [facility] Signed: 02/28/2024 10:57 [facility]
--- OUTSIDE RECORDS SUMMARY | 2024-07-23 12:01 | XMS_ITS | Continuity of Care Document ---
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 [facility] [address] [address] [place] CBC ERYTHROCYTE S [#/VOLUME] IN BLOOD BY AUTOMATED COUNT 4.30 10*6/u L 4.23 - 5.66 06/30 Specimen Type: BLOOD No comment entered. Ordering Provider: BRANDY NORIEGA Report Released Date/Time: Jun 29, 2024 08:19 AM Reporting Lab: [facility] [address] [address] Performing Lab: [facility] [address] [place] CBC HEMOGLOBIN [MASS/VOLUM E] IN BLOOD 13.4 g/dL 12.8 - 17 06/30 Specimen Type: BLOOD No comment entered. Ordering Provider: BRANDY NORIEGA Report Released Date/Time: Jun 29, 2024 08:19 AM Reporting Lab: [facility] [address] Performing Lab: [facility] [address] [address] [place] CBC HEMATOCRIT [VOLUME FRACTION] OF BLOOD BY AUTOMATED COUNT 40.2 39.2 - 50.4 06/30 Specimen Type: BLOOD No comment entered. Ordering Provider: BRANDY NORIEGA Report Released Date/Time: Jun 29, 2024 08:19 AM Reporting Lab: [facility] [address] [address] Performing Lab: [facility] [address] [place] CBC MCV [ENTITIC VOLUME] BY AUTOMATED COUNT 93.5 fL 82 - 99 06/30 Specimen Type: BLOOD No comment entered. Ordering Provider: BRANDY NORIEGA Report Released Date/Time: Jun 29, 2024 08:19 AM Reporting Lab: [facility] [place] [facility] [address] [facility] [address] Performing Lab: [facility] [place] [facility] [address] [facility] [address] [place] CBC MCHC [MASS/VOLUM E] BY AUTOMATED COUNT 33.3 g/dL 30.8 - 35.1 06/30 Specimen Type: BLOOD No comment entered. Ordering Provider: BRANDY NORIEGA Report Released Date/Time: Jun 29, 2024 08:19 AM Reporting Lab: [facility] [address] [facility] [address] Performing Lab: [facility] [address] [address] [place] CBC PLATELETS [#/VOLUME] IN BLOOD BY AUTOMATED COUNT 337 10*3/u L 140 - 360 06/30 Specimen Type: BLOOD No comment entered. Ordering Provider: BRANDY NORIEGA Report Released Date/Time: Jun 29, 2024 08:19 AM Reporting Lab: [facility] [address] [facility] [address] Performing Lab: [place] [facility] [place] [address] [address] [place] CBC PLATELET MEAN VOLUME [ENTITIC VOLUME] IN BLOOD BY AUTOMATED COUNT 10.6 fL 9.2 - 12.4 06/30 Specimen Type: BLOOD No comment entered. Ordering Provider: BRANDY NORIEGA Report Released Date/Time: Jun 29, 2024 08:19 AM Reporting Lab: [facility] [place] [facility] [address] [facility] [address] Performing Lab: [facility] [address] [address] [place] CBC ERYTHROCYTE DISTRIBUTIO N WIDTH [RATIO] BY AUTOMATED COUNT 13.0 12.0 - 16.0 06/30 Specimen Type: BLOOD No comment entered. Ordering Provider: BRANDY NORIEGA Report Released Date/Time: Jun 29, 2024 08:19 AM Reporting Lab: [facility] [place] [facility] [address] [facility] [address] Performing Lab: [facility] [place] [address] [address] [place] CBC MCH [ENTITIC MASS] BY AUTOMATED COUNT 31.2 pg 26.2 - 32.6 06/30 Specimen Type: BLOOD No comment entered. Ordering Provider: BRANDY NORIEGA Report Released Date/Time: Jun 29, 2024 08:19 AM Reporting Lab: [facility] [place] [address] [address] Performing Lab: [facility] [place] [address] [address] [place] LIPID PANEL FASTING CHOLESTEROL [MASS/VOLUM E] IN SERUM OR PLASMA 155 mg/dL 02/17 Specimen Type: SERUM No comment entered. Ordering Provider: BRANDY NORIEGA Report Released Date/Time: Feb 10, 2024 10:15 AM Reporting Lab: [facility] [place] [address] [address] Performing Lab: [facility] [place] [address] [address] [place] LIPID PANEL FASTING TRIGLYCERID E [MASS/VOLUM E] IN SERUM OR PLASMA 138 mg/dL 0 - 150 02/17 Specimen Type: SERUM No comment entered. Ordering Provider: BRANDY NORIEGA Report Released Date/Time: Feb 10, 2024 10:15 AM Reporting Lab: [facility] [place] [address] [address] Performing Lab: [facility] [place] [place] [address] [address] [place] LIPID PANEL FASTING CHOLESTEROL IN LDL [MASS/VOLUM E] IN SERUM OR PLASMA BY CALCULATION 81 mg/dL 0 - 129 02/17 Specimen Type: SERUM No comment entered. Ordering Provider: BRANDY NORIEGA Report Released Date/Time: Feb 10, 2024 10:15 AM Reporting Lab: [place] [facility] [place] [place] [address] [address] Performing Lab: [facility] [address] [facility] [address] [place] LIPID PANEL FASTING CHOLESTEROL .TOTAL/CHOL ESTEROL IN HDL [MASS RATIO] IN SERUM OR PLASMA 3.4 02/17 Specimen Type: SERUM No comment entered. Ordering Provider: BRANDY NORIEGA Report Released Date/Time: Feb 10, 2024 10:15 AM Reporting Lab: [facility] [address] [facility] [address] Performing Lab: [facility] [address] [facility] [address] [place] LIPID PANEL FASTING CHOLESTEROL IN HDL [MASS/VOLUM E] IN SERUM OR PLASMA 46 mg/dL 40 - 60 02/17 Specimen Type: SERUM No comment entered. Ordering Provider: BRANDY NORIEGA Report Released Date/Time: Feb 10, 2024 10:15 AM Reporting Lab: [facility] [address] [address] Performing Lab: [facility] [address] [place] BASIC METABOLIC PANEL (fasting) UREA NITROGEN [MASS/VOLUM E] IN SERUM OR PLASMA 23 mg/dL 7 - 25 02/17 Specimen Type: SERUM No comment entered. Ordering Provider: BRANDY NORIEGA Report Released Date/Time: Feb 10, 2024 10:15 AM Reporting Lab: [facility] [address] [address] Performing Lab: [facility] [address] [place] BASIC METABOLIC PANEL (fasting) GLUCOSE [MASS/VOLUM E] IN SERUM OR PLASMA 103 mg/dL 65 - 100 02/17 H Specimen Type: SERUM No comment entered. Ordering Provider: BRANDY NORIEGA Report Released Date/Time: Feb 10, 2024 10:15 AM Reporting Lab: [facility] [address] [address] Performing Lab: [facility]ENTERUSE[address] [address] [place] BASIC METABOLIC PANEL (fasting) SODIUM [MOLES/VOLU ME] IN SERUM OR PLASMA 139 mmol/L 135 - 145 02/17 Specimen Type: SERUM No comment entered. Ordering Provider: BRANDY NORIEGA Report Released Date/Time: Feb 10, 2024 10:15 AM Reporting Lab: [facility] [address] [address] Performing Lab: [facility]ENTER[facility] [address] [place] BASIC METABOLIC PANEL (fasting) POTASSIUM [MOLES/VOLU ME] IN SERUM OR PLASMA 4.6 mmol/L 3.5 - 5.0 02/17 Specimen Type: SERUM No comment entered. Ordering Provider: BRANDY NORIEGA Report Released Date/Time: Feb 10, 2024 10:15 AM Reporting Lab: [facility] [address] [address] Performing Lab: [facility]ENTER[facility] [address] [place] BASIC METABOLIC PANEL (fasting) CHLORIDE [MOLES/VOLU ME] IN SERUM OR PLASMA 108 mmol/L 100 - 110 02/17 Specimen Type: SERUM No comment entered. Ordering Provider: BRANDY NORIEGA Report Released Date/Time: Feb 10, 2024 10:15 AM Reporting Lab: [facility] [address] [address] Performing Lab: [facility]ENTER[facility] [address] [place] BASIC METABOLIC PANEL (fasting) CARBON DIOXIDE, TOTAL [MOLES/VOLU ME] IN SERUM OR PLASMA 20 meq/L 20 - 30 02/17 Specimen Type: SERUM No comment entered. Ordering Provider: BRANDY NORIEGA Report Released Date/Time: Feb 10, 2024 10:15 AM Reporting Lab: [facility] [address] Performing Lab: [facility]ENTER[facility] [address] [employer] BASIC METABOLIC PANEL (fasting) CREATININE [MASS/VOLUM E] IN SERUM OR PLASMA 1.06 mg/dL 0.50 - 1.40 02/17 Specimen Type: SERUM No comment entered. Ordering Provider: BRANDY NORIEGA Report Released Date/Time: Feb 10, 2024 10:15 AM Reporting Lab: [facility] [address] [facility] [address] Performing Lab: [facility] [address] [facility] [address] [facility] BASIC METABOLIC PANEL (fasting) GLOMERULAR FILTRATION RATE/1.73 SQ M.PREDICTED [VOLUME RATE/AREA] IN SERUM, PLASMA OR BLOOD BY CREATININE- BASED FORMULA (CKD-EPI 2020) 70 mL/min 60 02/17 Specimen Type: SERUM No comment entered. Ordering Provider: BRANDY NORIEGA Report Released Date/Time: Feb 10, 2024 10:15 AM Reporting Lab: [facility] [address] [facility] [address] Performing Lab: [facility] [facility] [address] [facility] [address] [facility] Vital Signs Combined list of inpatient and outpatient Vital Signs from Department of Defense and Veterans Affairs, ranging from 12 months to all on record, depending upon the facility. Vital Sign Value Date Comments Source PAIN 8 06/08/2024 10:27:32 [facility] SYSTOLIC BLOOD PRESSURE 124 03/24/20 24 14:32:32 [facility] DIASTOLIC BLOOD PRESSURE 68 03/24/ 024 14:32:32 [facility] PULSE OXIMETRY 98 03/24/2024 14:32:32 [facility] WEIGHT 206 03/24/2024 14:32:32 [facility] BMI 26 kg/m2 03/24/2024 14:32:32 [facility] HEIGHT 75 03/24/2024 14:32:32 [facility] TEMPERATURE 97.7 03/24/2024 14:32:32 [facility] PULSE 57 03/24/2024 14:32:32 [facility] RESPIRATION 19 03/24/2024 14:32:32 [facility] SYSTOLIC BLOOD PRESSURE 130 02/28/20 24 10:29:33 [facility] DIASTOLIC BLOOD PRESSURE 70 024 10:29:33 [facility] PAIN 8 02/28/2024 10:29:33 [facility] SYSTOLIC BLOOD PRESSURE 130 12/23/19 24 10:25:38 [facility] DIASTOLIC BLOOD PRESSURE 70 024 10:25:38 [facility] PAIN 6 12/23/2023 10:25:38 [facility] SYSTOLIC BLOOD PRESSURE 120 09/23/19 24 10:35:56 [facility] DIASTOLIC BLOOD PRESSURE 60 024 10:35:56 [facility] PAIN 7 09/23/2023 10:35:56 [facility] Encounters Combined list of: 1) Encounters from Department of Veterans Affairs facilities going backup to the last 18 months, not all VA inpatient encounters are included; 2) Encounters from the Department of Defense facilities going backup to 280 months. Location Location Details Encounter Type Encounter Number Reason For Visit Attending Provider ADM Date DC Date Status Disposition Source [place] [facility] WEIGHT MGMT CLASS [id number] Diagnos is: ICD-10- CM Z68.28 Body mass index [BMI] 28.0-28 .9, adult SULAIMAN FRANZ 01/22 [place] [facility] [facility] GROUP BEHAVE COUNS 2-10 [id number] Diagnos is: ICD-10- CM E66.3 Overwei OZIEL Velazquez 01/29 [place] [facility] En[facility] [id number] 02/04 [facility] [place] [facility] SELF-MGMT EDUC & TRAIN 1 [place] [id number] Diagnos is: ICD-10- CM E66.3 Overwei ght SULAIMAN FRANZ MICHELLE 02/05 [place] [facility] OFFICE O/P EST HI 40-54 MIN [id number] Diagnos is: ICD-10- CM M46.1 Sacroil iitis, not elsewhe re classif ied KRAUSE,CAT DORIS THI 02/06 [facility] En[facility] [id number] 02/06 [facility] En[facility] [id number] 02/08 [facility] [place] PRO PHONE CALL 11-20 MIN [id number] Diagnos is: ICD-10- CM E66.3 Overwei kierant CLAUDIARIGOBERTO IE 02/08 [place] [facility] Encounter [id number] 02/12 [facility] En[facility] [id number] 02/18 [facility] En[facility] [id number] 02/18 [facility] [place] OFF[place] O/P EST LOW 20-29 MIN [id number] Diagnos is: ICD-10- CM R41.840 Attenti on and concent ration deficit DEANDRE HADLEY OY F 02/20 [place] [facility] En[facility] [id number] 02/22 [facility] En[facility] [id number] 03/08 [facility] [place] CASE MANAGEMENT [id number] Diagnos is: ICD-10- CM R41.840 Attenti on and concent ration deficit HEMALATHA,W TIP 03/24 [place] [facility] En[facility] [id number] 03/27 [facility] [place] PRO PHONE CALL 5-10 MIN [id number] Diagnos is: ICD-10- CM E66.8 Other obesity CLAUDIA,RIGOBERTO IE 03/27 [place] [facility] Outpatient Encounter [id number] 03/28 [facility] [place]NAG[place] [id number] Diagnos is: ICD-10- CM R41.840 Attenti on and concent ration deficit HEMALATHA,W TIP 04/05 [place] [facility] Out[facility] Encounter [id number] 04/12 [facility] En[facility] [id number] 04/12 [facility] [place] OFF/OP EST AUGUST X REQ PHY/QHP [id number] Diagnos is: ICD-10- CM M25.561 Pain in right knee JEFF,ER IC K 04/12 [place] [facility] Out[facility] Encounter [id number] 04/12 [facility] [place] OFF[place] O/P EST LOW 20 MIN [id number] Diagnos is: ICD-10- CM M17.5 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 SARMAD NORIEGA NDRJuancho C 04/12 [place] [facility] Encounter [id number] 04/23 [facility] OFFICE O/P EST LOW 20 MIN [id number] Diagnos is: ICD-10- CM M17.9 Osteoar thritis of knee, unspeci fied Murali ANAND 05/08 [facility] En[facility] [id number] 05/08 [facility] QNHP OL DIG ASSMT&MGMT 11-20 [id number] Diagnos is: ICD-10- CM M17.9 Osteoar thritis of knee, unspeci fied FABY PADILLA 05/09 [facility] En[facility] [id number] 05/09 [facility] En[facility] [id number] 05/13 [facility] [place] OFF[place] O/P EST LOW 20 MIN [id number] Diagnos is: ICD-10- CM R41.840 Attenti on and concent ration deficit DEANDRE HADLEY OY F 05/15 [place] 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 15 MIN [id number] Diagnos is: ICD-10- CM E66.3 Rajiv TAYLORRIGOBERTO IE 05/21 [facility] [place] [facility] En[facility] [id number] 06/12 [facility] En[facility] [id number] 06/16 [facility] En[facility] [id number] 06/16 [facility] Encounter [id number] ARNULFO JAMES 06/17 [facility] En[facility] [id number] 06/17 [facility] OFFICE O/P EST LOW 20 MIN [id number] Diagnos is: ICD-10- CM M17.11 Unilate ral primary osteoar thritis , right knee Murali ANAND 06/19 [facility] En[facility] [id number] 06/19 [facility] En[facility] [id number] 06/23 [facility] Out[facility] Encounter [id number] ARNULFO JAMES 06/27 [facility] CASE MANAGEMENT [id number] Diagnos is: ICD-10- CM R41.840 Attenti on and concent ration deficit Shirin PENNY TIP 07/02 [place] [facility] COMPRE OPH EXAM EST PT 1/> [id number] Diagnos is: ICD-10- CM 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, bilater al, moderat e stage HUONG CORONA 07/09 [facility] FIT SPECTACLES MONOFOCAL [id number] Diagnos is: ICD-10- CM Z46.0 Encount er for fit/adj st of spectac les and contact lenses HUONG CORONA 07/09 [facility] Outpatient Encounter [id number] 08/21 [facility] Outpatient Encounter [id number] 08/25 [facility] Outpatient Encounter [id number] 08/25 [facility] Outpatient Encounter [id number] ARNULFO JAMES 08/26 [facility] OFFICE O/P EST MOD 30 MIN [id number]. [id number] Diagnos is: ICD-10- CM I10 Essenti al (primar y) hyperte nsion STELEA,CAR MEN F 08[place] [facility] Outpatient Encounter [id number] 09/08 [facility] Encounter [id number] 09/09 [facility] [place] OFFICE O/P EST LOW 20 MIN [id number] Diagnos is: ICD-10- CM R41.840 Attenti on and concent ration deficit DEANDRE HADLEY OY F 09/10 [place] [facility] Outpatient Encounter [id number] 09/19 [facility] OFFICE O/P EST LOW 20 MIN [id number] Diagnos is: ICD-10- CM M19.011 Primary osteoar thritis , right shoulde r Murali ANAND 09/22 [facility] Out[facility] Encounter [id number] 09/22 [facility]counter [id number] 09/22 [facility] Out[facility]counter [id number] 09/29 [facility] Encounter [id number] 10/13 [facility] [facility] Encounter [id number] ARNULFO JAMES 10/13 [facility] Encounter [id number] ARNULFO JAMES 10/16 [facility] Encounter [id number] 10/29 [facility] Encounter [id number] 11/04 [facility] 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 Diagnos is: ICD-10- CM M10.9 Gout, unspeci fied Murali ANAND 12/22 [facility] Encounter [id number] [facility] Encounter [id number] 1.12/22 [facility] Encounter [id number] 1.12/26 [facility] [place]6[facility] [id number] Diagnos is: ICD-10- CM R41.840 Attenti on and concent ration deficit MARTY SHARIF 01/07 [facility] (631GE) [facility] Outpatient Encounter [id number] 1. MARTY SHARIF RA 01/07 [facility] OFFICE O/P EST LOW 20 MIN [id number] 1BY. 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, unspeci fied type DEANDRE HADLEY OY F 01/14 [place] [facility] Outpatient Encounter [id number] 1.02/17 [facility] Outpatient Encounter [id number] 1.02/23 [facility] Outpatient Encounter [id number] [facility] OFFICE O/P EST LOW 20 MIN [id number] 1. Diagnos is: ICD-10- CM M17.11 Unilate ral primary osteoar thritis , right knee Murali ANAND 02/27 [facility] Outpatient Encounter [id number] 1.02/27 [facility] (631[place] [id number] Diagnos is: ICD-10- CM E66.3 Overwei kieranMARTY Burnett RA 03/10 [facility] Encounter [id number] 03/18 [facility] Out[facility] Encounter [id number] 03/20 [facility] OFFICE O/P EST MOD 30 MIN [id number] Diagnos is: ICD-10- CM 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 SARMAD NORIEGA 03/24 [facility] [place] [facility] IMMUNIZATI ON ADMIN [id number] SARMAD NORIEGA C 03/24 [facility] Out[facility] Encounter [id number] 03/27 [facility] Out[facility] Encounter [id number] 04/07 [facility] Out[facility] Encounter [id number] 04/13 [facility] Out[facility] Encounter [id number] 04/14 [facility] Out[facility] Encounter [id number] RA JESUS FRENCH 04/15 [facility] Out[facility] Encounter [id number] ARNULFO JAMES 04/17 [facility] Out[facility] Encounter [id number] 04/28 [facility] Out[facility] Encounter [id number] 04/30 [facility] Out[facility] Encounter [id number] 05/11 [facility] OFFICE O/P EST LOW 20 MIN [id number] 1BY. 26 Diagnos is: ICD-10- CM R41.840 Attenti on and concent ration deficit LEONIEDEANDRE OY F 05/20 [place] [facility] Out[facility] Encounter [id number] 06/01 [facility] OFFICE O/P EST MOD 30 MIN [id number] Diagnos is: ICD-10- CM M19.219 Seconda ry osteoar thritis , unspeci fied Murali Aguilar 06/08 [facility] Out[facility] Encounter [id number]/08 [facility] Outpatient Encounter [id number] 06/08 [facility] Out[facility] Encounter [id number] 06/08 [facility] Out[facility] Encounter [id number] 06/09 [facility] Out[facility] Encounter [id number] AUTUMNKirkSMITH SKYLAR MELINDA 06/29 [facility] Out[facility] Encounter [id number] 07/01 [facility] Outpatient Encounter [id number] 07/07 [facility] (631GE) HLTH BHV IVNTJ INDIV 1ST 30 [id number] Diagnos is: ICD-10- CM G47.00 Insomni a, unspeci fied MARTY SHARIF RA 07/09 [facility] (631GE) [place] [facility] OFFICE O/P EST MOD 30 MIN [id number] Diagnos is: ICD-10- CM 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, bilater al, moderat e stage CORONA,LACE Y J 07/14 [facility] Outpatient Encounter [id number] 07/15 [facility] [place]631[place] [id number] Diagnos is: ICD-10- CM R41.840 Attenti on and concent ration deficit MARTY SHARIF RA 07/16 [facility] (631GE) [place] [facility] Outpatient Encounter [id number] 07/22 [facility] Social History Combined list of available smoking, tobacco, and other social history from Department of Defense and Veterans Affairs facilities. Social History Type Response Date Comment Source Tobacco smoking status [facility]-TOBACCO NEVER USED 08/30/2023 [facility] History of tobacco use IN-TOBACCO NEVER USED 08/22/2022 [facility] History of tobacco use IN-TOBACCO NEVER USED 07/24/2021 [facility] [place] [facility] History of tobacco use IN-TOBACCO NEVER USED 08/16/2020 [facility] History of tobacco use IN-TOBACCO NEVER USED 09/02/2019 [facility] History of tobacco use IN-TOBACCO NEVER USED 09/09/2018 [facility] History of tobacco use LIFETIME NON-TOBACCO USER 10/08/2017 [facility] History of tobacco use LIFETIME NON-TOBACCO USER 08/01/2016 [facility] History of tobacco use LIFETIME NON-TOBACCO USER 04/29/2015 has never smoked. [facility] History of tobacco use LIFETIME NON-TOBACCO USER 05/17/2008 [facility] Plan of Care List of future care activities from Department of Veterans Affairs facilities. Additional future care activities may be listed in the Assessment and Plan section. Date/Time Care Activity Care Activity Detail Facili ty 08/26/2024 AMBULATORY - PSYCHIATRY [facility]
--- OUTSIDE RECORDS SUMMARY | 2024-07-23 12:01 | XMS_ITS ---
Author Name [facility] [place] [facility] [place] [facility] [facility] [place] Address [address] [place] [id number] Care Team Providers Care Neurophysiology Tech Name Role Phone ASIYA NORIEGA Primary Care [...] Name Patient's Relationship to Policy Wheeler [facility] ([facility]) MEDICARE ADVANTAGE [facility] ([facility]) Apr 08, 2016 [id number] JOLEEN MSIHRA PATIENT [facility] ([facility]) MEDICARE ADVANTAGE [facility] ([facility]) Apr 08, 2016 [id number] JOLEEN MISHRA PATIENT [facility] ([facility]) MEDICARE ADVANTAGE MCR ([facility]) Apr 08, 2014 [id number] JOLEEN MISHRA PATIENT OFFICE OF [facility] [employer] OFFICER CT TORT FEASOR TORT FEASO R May 16, 2013 TORT FEASOR [id number] JOLEEN MISHRA PATIENT Selected Encounter This section includes the information on record at [place] for the Encounter. Date/Time Encounter Type Encounter Description Reason Provider Source Dec 23, 2023 10:30 AM OFFICE O/P EST LOW 20 MIN PM&RS PHYSICIAN ICD-10-CM M10.9 Gout, unspecified SANCHEZSHOSHANA Enriquez [facility] Encounter Template Text not used by [place] Assessments - Encounter Diagnoses This section includes the primary and secondary diagnoses documented for the Encounter. Date/Time Primary/Secondary Diagnosis Diagnosis Name Provider Source Dec 23, 2023 11:04 AM PRIMARY Gout, unspecified SHOSHANA SANCHEZ [place] [facility] [place] [facility] Dec 23, 2023 11:04 AM SECONDARY Other specified arthritis, right knee [facility] Plan of Treatment: Future Appointments (+ 6 months) and Future Tests (+/- 45 days) The Plan of Treatment section includes future care activities for the patient from all [place] [facility]. This section includes future appointments and future orders which are active, pending or scheduled. Future Appointments This section includes appointments that were scheduled to occur 6 months from the date of the Encounter, up to a maximum of 20 appointments. The data comes from all [place] treatment facilities. Appointment Date/Time Appointment Type Appointme nt Facility Name Dec 27, 2023 07:30 AM AMBULATORY - REHAB MEDICIN E [place] [facility] [place] [facility] Jan 08, 2024 11:00 AM AMBULATORY - MEDICINE IN [place] [facility] [place] [facility] Jan 15, 2024 09:00 AM AMBULATORY - PSYCHIATRY [facility] Feb 28, 2024 10:30 AM AMBULATORY - MEDICINE IN [place] [facility] [place] [facility] Mar 10, 2024 03:00 PM AMBULATORY - MEDICINE IN [place] [facility] [place] [facility] Mar 24, 2024 02:30 PM AMBULATORY - MEDICINE [facility] May 20, 2024 09:00 AM AMBULATORY - PSYCHIATRY [facility] Jun 08, 2024 10:30 AM AMBULATORY - MEDICINE [facility] [place] [facility] Vital Signs: All taken on the encounter date This section contains inpatient and outpatient Vital Signs collected on the date of the Encounter. Date/Time Temperature Pulse Blood Pressure Respiratory Rate SP02 Pain Height Weight Body Mass Index Source Dec 23, 2023 10:25 AM 130/70 6 [place] [facility] Social History: Smoking Status (Most current) and Tobacco Use (All prior to encounter date) This section includes the most current, and the historical, smoking and tobacco- related health factors from the [place] facility where the Encounter took place. Current Smoking Status This section includes the most current smoking, or tobacco-related health factor, from the [place] facility where the Encounter took place. Date/Time Current Smoking Status Comment Azam chrisitne Jul 24, 2021 11:00 AM VA-TOBACCO NEVER USED [facility] [place] [facility] Encounter Notes: All associated encounter notes This section contains the clinical notes associated to the Encounter. Date/Time Encounter Note(s) Provider Source Dec 23, 2023 10:47 AM PHYSICAL MEDICINE REHAB NOTE: LOCAL TITLE: PM&R BACK/JOINT PROCEDURE NOTE STANDARD TITLE: PHYSICAL MEDICINE REHAB NOTE DATE OF NOTE: DEC 23, 2023@10:47 ENTRY DATE: DEC 23, 2023@10:47:16 AUTHOR: JOAQUIM SANCHEZ COSIGNER: URGENCY: STATUS: COMPLETED PROCEDURE: Right intra-articular knee injection with hyluronic Acid, INDICATION: Knee pain.Osteoarthritis ANESTHESIA: None. INFORMED CONSENT: Obtained verbally, and through IMED. [place] has steadily been making improvement in his activity levels. He feels that the knee is much more functional. He has not been having a great deal of pain. Over the last 2 months pain has slightly increased but still manageable at 4-6 out of 10 on the analog scale. He does use diclofenac gel and finds this to be helpful both for the shoulder as well as the knee. The pain is an aching sensation anteromedially. Previous x-rays showed more mild tricompartmental arthritis but significant chondrocalcinosis Exam shows no effusion today. No redness or warmth. Tenderness in the parapatellar region as well as in the medial joint line greater than lateral. Ambulates with only a slight degree of right antalgia. No crepitus appreciated. No instability. No tenderness over the MCL or LCL. The steps of the procedure, potential risks and benefits of the intra-articular knee injection, as well as alternatives were discussed with patient. The potential risks include, but not limited to: local injection reaction, pain, bruising/hematoma, nerve damage, adverse side effects to hyaluronic acid, infection, and swelling of the knee. Patient agreed to proceed with the injection. TIME OUT NOTE TIME:Dec@10:15 correctly stated: [X]Full name: AMADO MISHRA [X]Last 4 of #: [id number] [X]: Jul PROVIDER NAME: Joaquim Sanchez PA-c STAFF NAME: Maty Kumari RN Lot #: [id number] Exp: 2026-04-07 The procedure was performed with the patient in the seated position. The Right knee was flexed . The anteromedial approach was performed and sterile techniques were utilized throughout today's procedure. Landmarks were palpated and the area of interest was marked. After cleaning the area with Povidone-iodine x 3, a 25G 1.5 needle and attached syringe were introduced superolaterally with 2cc of 1 cc of lidocaine until loss of resistance. 23-gauge 1/2 inch needle was then utilized and advanced into the intercondylar notch after negative aspiration for heme, 60 mg of steroid was injected without difficulties. The needle was [...] me with any issues. Pre-procedure pain level: 4/10 Post-procedure pain level: 0 Assessment and plan: 83-year-old with chondrocalcinosis of the right knee. He additionally has severe osteoarthritis of the right shoulder. Durolane injections have been very helpful to provide adequate relief in order to allow him to be more functional. Will repeat in 6 months. In reference to the right shoulder intra-articular injection will be provided in 2 months. MDM: 25 minutes Medication Reconciliation: Outpatient: Has the patient been taking medications as documented in the EMLR? YES: The patient has been taking medications as documented in the EMLR. Essential Medication List for Review used to complete this medication reconciliation. INCLUDED IN THIS LIST: Alphabetical list of active outpatient prescriptions dispensed from this [place] (local) and dispensed from another VA or [...] [facility] No Known Allergies [facility] NO KNOWN ALLERGIES Med Recon NoGlossary (Tool #1) INCLUDED IN THIS LIST: Alphabetical list of active outpatient prescriptions dispensed from this [place] (local) and dispensed from another [place] or DoD facility (remote) as well as [...] the patient into personal health records (i.e. [place]) are NOT included in this list. Non-VA medications documented outside this [place], remote inpatient orders (regardless of status) and remote clinic medications are NOT included in this list. The patient and provider must always discuss medications the patient is taking, regardless of where the medication was dispensed or obtained. OUTPT ALBUTEROL 90MCG (CFC-F) 200D ORAL INHL (Status = Active) INHALE 1 PUFF BY MOUTH EVERY 8 HOURS NEEDED FOR BRONCHOSPASM Rx# [id number] Last Released: 11/13/23 Qty/Days Supply: Rx Expiration Date: 08/30/24 Refills Remainin Indication: FOR BRONCHOSPASM OUTPT AMLODIPINE BESYLATE 5MG TAB (Status = Active) TAKE ONE TABLET BY MOUTH ONCE DAILY FOR BLOOD PRESSURE/HEART, DO NOT TAKE WITH GRAPEFRUIT JUICE Rx# [id number] Last Released: 12/13/23 Qty/Days Supply: Rx Expiration Date: 06/20/24 Refills Remainin OUTPT CARBOXYMETHYLCELLULOSE NA 0.5% OPH SOLN (Status = Active) INSTILL 1 DROP INTO EACH EYE FOUR TIMES A DAY FOR DRY EYE Rx# [id number] Last Released: 07/12/23 Qty/Days Supply: Rx Expiration Date: 07/10/24 Refills Remainin Indication: FOR DRY EYE OUTPT CHOLECALCIF 50MCG (D3-2,000UNIT) TAB (Status = Active) TAKE ONE TABLET BY MOUTH ONCE DAILY FOR VITAMIN SUPPLEMENTATION Rx# [id number] Last Released: 12/13/23 Qty/Days Supply: 100 Rx Expiration Date: 09/23/24 Refills Remainin Indication: FOR VITAMIN D DEFICIENCY OUTPT DICLOFENAC NA 1% TOP GEL (Status = Active) APPLY 4 GRAMS TOPICALLY FOUR TIMES A DAY FOR OSTEOARTHRITIS - USE DOSING CARD PROVIDED IN BOX Rx# [id number] Last Released: 12/06/23 Qty/Days Supply: 400/ Rx Expiration Date: 05/02/24 Refills Remainin OUTPT HYALURONATE NA (DUROLANE)20MG/ML SYR 3ML (Status = Active) INJECT 60MG INTRA-ARTICULAR ONE TIME Rx# [id number] Last Released: 12/19/23 Qty/Days Supply: Rx Expiration Date: 05/08/24 Refills Remainin Indication: OSTEOARTHRITIS OF THE KNEE OUTPT KETOTIFEN 0.025% OPH SOLN (Status = Active) INSTILL 1 DROP INTO EACH EYE TWICE DAILY FOR ALLERGIC CONJUNCTIVITIS (IF YOU WEAR CONTACT LENSES, WAIT 10 MINUTES BEFORE INSERTING LENSES) Rx# [id number] Last Released: 07/12/23 Qty/Days Supply: Rx Expiration Date: 07/10/24 Refills Remainin Indication: FOR ALLERGIC CONJUNCTIVITIS OUTPT METHYLPHENIDATE HCL SR 20MG TAB (Status = Discontinued) TAKE ONE TABLET BY MOUTH THREE TIMES A DAY FOR ADHD NEXT FILL 10/18/23 Rx# [id number] Last Released: 09/16/23 Qty/Days Supply: Rx Expiration Date: 10/10/23 Refills Remainin Indication: FOR ADHD OUTPT METHYLPHENIDATE HCL SR 20MG TAB (Status = ) TAKE ONE TABLET BY MOUTH THREE TIMES A DAY FOR ADHD NEXT FILL 11/15/23 Rx# [id number] Last Released: 10/15/23 Qty/Days Supply: Rx Expiration Date: 10/30/23 Refills Remainin Indication: FOR ADHD OUTPT METHYLPHENIDATE HCL SR 20MG TAB (Status = Discontinued) TAKE ONE TABLET BY MOUTH THREE TIMES A DAY FOR ADHD NEXT FILL 12/13/23 Rx# [id number] Last Released: 11/12/23 Qty/Days Supply: Rx Expiration Date: 12/03/23 Refills Remainin Indication: FOR ADHD OUTPT METHYLPHENIDATE HCL SR 20MG TAB (Status = Active) TAKE ONE TABLET BY MOUTH THREE TIMES A DAY FOR ADHD NEXT FILL 01/10/24 Rx# [id number] Last Released: 12/11/23 Qty/Days Supply: Rx Expiration Date: 01/01/24 Refills Remainin Indication: FOR ADHD Non-VA METOPROLOL TARTRATE 25MG TAB TAKE ONE TABLET BY MOUTH TWICE DAILY OUTPT METOPROLOL TARTRATE 25MG TAB (Status = Active) TAKE ONE TABLET BY MOUTH TWICE DAILY FOR BLOOD PRESSURE/HEART Rx# [id number] Last Released: 12/06/23 Qty/Days Supply: 180/ Rx Expiration Date: 09/26/24 Refills Remainin OUTPT PRAVASTATIN NA 20MG TAB (Status = Discontinued) TAKE ONE TABLET BY MOUTH ONCE DAILY FOR CHOLESTEROL Rx# [id number] Last Released: 10/14/23 Qty/Days Supply: Rx Expiration Date: 06/20/24 Refills Remainin OUTPT PRAVASTATIN NA 20MG TAB (Status = Active/Suspended) TAKE ONE TABLET BY MOUTH ONCE DAILY FOR CHOLESTEROL Rx# [id number] Last Released: Qt Supply: Rx Expiration Date: 12/05/24 Refills Remainin SUPPLIES /hector/ JOAQUIM SANCHEZ [facility] Signed: 12/23/2023 11:04 [facility]IM [facility]ANCHEZ [facility]
--- OUTSIDE RECORDS SUMMARY | 2024-07-23 12:01 | XMS_ITS | Encounter Summary ---
Author Name [facility] [facility] [place] Address [address] [place] [id number] Care Team Providers Care Epic [facility] Name Role Phone ASIYA NORIEGA Primary Care [...] Wheeler's Name Patient's Relationship to Policy Wheeler [facility] ([facility] MEDICARE ADVANTAGE MCR ([facility]) Apr 08, 2016 [id number] JOLEEN MISHRA PATIENT [facility] ([facility]) MEDICARE ADVANTAGE MCR ([facility]) Apr 08, 2016 [id number] JOLEEN MISHRA PATIENT [facility] ([facility]) MEDICARE ADVANTAGE MCR ([facility]) Apr 08, 2014 [id number] JOLEEN MISHRA PATIENT OFFICE OF [employer] TORT FEASOR TORT FEASO R May 16, 2013 TORT FEASOR [id number] JOLEEN MISHRA PATIENT Selected Encounter This section includes the information on record at [place] for the Encounter. Date/Time Encounter Type Encounter Description Reason Provider Source August 30, 2023 09:00 AM OFFICE O/P EST MOD 30 MIN PRIMARY CARE/MEDICINE ICD-10-CM I10 Essential (primary) hypertension SONAL GOLD Edi Encounter Template Text not used by [place] Assessments - Encounter Diagnoses This section includes the primary and secondary diagnoses documented for the Encounter. Date/Time Primary/Secondary Diagnosis Diagnosis Name Provider Source August 30, 2023 09:39 AM PRIMARY Essential (primary) hypertension SONAL GOLD [facility] August 30, 2023 09:39 AM SECONDARY Gout, unspecified SAVILESONAL Dawkins [facility] August 30, 2023 09:39 AM SECONDARY Hyperlipidemia, unspecified STELEASONAL [facility] August 30, 2023 09:39 AM SECONDARY Other spondylosis with radiculopathy, lumbar region SONAL GOLD Plan of Treatment: Future Appointments (+ 6 months) and Future Tests (+/- 45 days) The Plan of Treatment section includes future care activities for the patient [facility] This section includes future appointments and future orders which are active, pending or scheduled. Future Appointments This section includes appointments that were scheduled to occur 6 months from the date of the Encounter, up to a maximum of 20 appointments. The data comes from all [place] treatment facilities. Appointment Date/Time Appointment Type Appointme nt Facility Name Sep 11, 2023 09:30 AM AMBULATORY - PSYCHIATRY [facility] Sep 20, 2023 09:00 AM AM[place]ULATORY [place]ICINE [place] [facility] [place] [facility] Sep 23, 2023 10:30 AM [facility]BUL[facility] [place] [facility] Nov 19, 2023 08:30 AM AMBULATORY [place]ICINE [place] [facility] [place] [facility] Dec 23, 2023 10:30 AM AM[place]ULATORY [place]ICINE [place] [facility] [place] [facility] Dec 27, 2023 07:30 AM AMBULATORY - [facility]ICIN [facility] [place] [facility] Jan 08, 2024 11:00 AM AM[place]UL[place]ORY [place] [facility] [place] [facility] Jan 15, 2024 09:00 AM AMBULATORY - PSYCHIATRY [facility] Feb 28, 2024 10:30 AM AMBULATORY - MEDICINE [facility] [place] [facility] Lab Results: +/- 30 days of the encounter This section includes the Chemistry and Hematology Lab Results on record with [place] for the patient. Radiology Reports and Pathology Reports are provided separately, in subsequent sections. Lab Results This section contains the Chemistry/Hematology Results that were resulted 30 days before or 30 daysafter the date of the Encounter. Date/Time Source Result Type Result - Unit Interpretation Reference Range Specimen Type Comment September 05, 2023 10:22 AM [facility] VITAMIN D 25-OH (Therapy monitor) SERUM Specimen [...] For additional information, please refer to [email or web address] Jinn/faq/[email or web address] (This link is being provided for informational/ educational purposes only.) This test was developed and its analytical performance characteristics have been determined by [employer], [place]. It has not been cleared or approved by the U.S. Food and Drug Administration. This assay has been validated pursuant to the CLIA regulations and is used for clinical purposes. This test was developed and its analytical performance characteristics have been determined by [employer] [place], [place]. It has not been cleared or approved by the U.S. Food and Drug Administration. This assay has been validated pursuant to the CLIA regulations and is used for clinical purposes. Test Performed by [facility], [employer] [facility], [address] [place] [address] Yang More M.D., Ph.D., Director of Laboratories , CLIA [id number] TEST PERFORMED AT: , Ordering Provider: SONAL GOLD Report Released Date/Time: August 30, 2023 09:29 AM Reporting Lab: [facility] [address] [facility] [address] Performing Lab: [address] [place], [address] [place] [address] VITAMIN D, 25-OH, TOTAL 27 ng/mL L 30-100 VITAMIN D, 25-OH, D3 27 ng/mL VITAMIN D, 25-OH, D2 <4 ng/mL September 05, 2023 10:22 AM [facility] VITAMIN B12 SERUM Specimen Type: SERUM No comment entered. Ordering Provider: SONAL OGLD Report Released Date/Time: August 30, 2023 09:29 AM Reporting Lab: [address] [address] Performing Lab: [address] [address] VITAMIN B12 1133 pg/mL H 200-900 August 28, 2023 08:45 AM [facility] LIPID PANEL FASTING SERUM Specimen Ty pe: SERUM No comment entered. Ordering Provider: SONAL GOLD Report Released Date/Time: August 14, 2023 09:10 AM Reporting Lab: [address] [address] Performing Lab: [address] [address] CHOLESTEROL 178 mg/dL TRIGLYCERIDE 131 mg/dL 0-150 LDL calculated 95 mg/dL 0-129 CHOL/HDL 3.1 HDL CHOLESTEROL 57 mg/dL 40-60 August 28, 2023 08:45 AM [facility] BASIC METABOLIC PANEL (non-fasting) SERUM Specimen Type: SERUM No comment entered. Ordering Provider: SONAL GOLD Report Released Date/Time: August 14, 2023 09:10 AM Reporting Lab: [address] [address] Performing Lab: [address] [address] UREA NITROGEN 22 mg/dL 7-25 GLUCOSE 111 mg/dL H 65-100 SODIUM 137 mmol/L 135-145 POTASSIUM 4.6 mmol/L 3.5-5.0 CHLORIDE 104 mmol/L 100-110 CO2 24 meq/L 20-30 CREATININE, Serum 1.03 mg/dL 0.50-1.40 eGFR(CKD-EPI 2021) 73 mL/min >60 August 28, 2023 08:45 AM [facility] HEMOGLOBIN A1C PANEL BLOOD Specimen T ype: [...] August 14, 2023 09:10 AM Reporting Lab: [facility] [address] [address] Performing Lab: [address] [address] HEMOGLOBIN A1C 5.3 4.0-5.6 August 28, 2023 08:45 AM [facility] LIVER FUNCTION SERUM Specimen Type: SERUM No comment entered. Ordering Provider: SONAL GOLD Report Released Date/Time: August 14, 2023 09:10 AM Reporting Lab: [facility] [address] [address] Performing Lab: [address] [address] PROTEIN,TOTAL 7.1 g/dL 6.0-8.3 ALBUMIN 4.0 g/dL 3.5-5.0 ALKALINE PHOSPHATASE 82 U/L 40-150 AST 18 U/L 5-34 ALT 21 U/L BILIRUBIN, TOTAL 1.4 mg/dL H 0.2-1.2 BILIRUBIN, DIRECT 0.5 mg/dL 0-0.5 August 28, 2023 08:45 AM [facility] TSH SERUM Sp ecimen Type: SERUM No comment entered. Ordering Provider: SONAL GOLD Report Released Date/Time: August 14, 2023 09:10 AM Reporting Lab: [facility] [address] [address] Performing Lab: [address] [address] TSH 1.31 u[IU]/mL 0.35-5.00 August 28, 2023 08:45 AM [facility] CBC AND DIFF (AUTO) BLOOD Specimen Ty pe: BLOOD No comment entered. Ordering Provider: SONAL GOLD Report Released Date/Time: August 14, 2023 09:10 AM Reporting Lab: [facility] [address] [facility] [address] Performing Lab: [facility] [address] [facility] [address] WBC 9.42 10*3/uL 4.50-11.00 RBC 4.09 10*6/uL L 4.23-5.66 HGB 13.4 g/dL 12.8-17 HCT 40.0 39.2-50.4 MCV 97.8 fL 82-99 MCHC 33.5 g/dL 30.8-35.1 PLT 363 10*3/uL H 140-360 RDW-CV 13.1 12.0-16.0 Dickens, Abs 0.73 10*3/uL 0.30-1.10 MCH 32.8 pg H 26.2-32.6 Neut % 59.3 43.7-75.8 Lymph % 29.3 14.0-42.3 Dickens % 7.7 5.1-13.7 Eos % 1.5 0.4-6.8 Baso % 0.8 0.1-2.0 Neut, Abs 5.58 10*3/uL 2.20-7.60 Lymph, Abs 2.76 10*3/uL 1.00-3.20 Eos, Abs 0.14 10*3/uL 0.03-0.44 Baso, Abs 0.08 10*3/uL 0.01-0.13 Immature Gran % 1.4 H 0.0-0.7 Immature Gran, Abs 0.13 10*3/uL H 0.00-0.0 6 Vital Signs: All taken on the encounter date This section contains inpatient and outpatient Vital Signs collected on the date of the Encounter. Date/Time Temperature Pulse Blood Pressure Respiratory Rate SP02 Pain Height Weight Body Mass Index Source August 30, 2023 09:02 AM 58 145/79 98 205 26 [facility] Social History: Smoking Status (Most current) and Tobacco Use (All prior to encounter date) This section includes the most current, and the historical, smoking and tobacco- related health factors from the [place] facility where the Encounter took place. Current Smoking Status This section includes the most current smoking, or tobacco-related health factor, from the [place] facility where the Encounter took place. Date/Time Current Smoking Status Comment Facil ity August 30, 2023 09:00 AM VA-TOBACCO NEVER USED [facility] Tobacco Use History This section includes a history of the smoking, or tobacco-related health factors, that were collected on or before the date of the Encounter. The data comes from the [place] facility where the Encounter took place. Date/Time Smoking Status/Tobacco Use Comment F acility August 22, 2022 10:00 AM VA-TOBACCO NEVER USED [facility] August 16, 2020 10:00 AM VA-TOBACCO NEVER USED [facility] September 02, 2019 03:09 PM VA-TOBACCO NEVER USED [facility] Sep 09, 2018 10:15 AM VA-TOBACCO NEVER USED [facility] Oct 08, 2017 10:16 AM LIFETIME NON-TOBACCO USER [facility] Aug 01, 2016 11:13 AM LIFETIME NON-TOBACCO USER [facility] Apr 29, 2015 12:47 PM LIFETIME NON-TOBACCO USER has never smoked. [facility] May 17, 2008 10:30 AM LIFETIME NON-TOBACCO USER [facility] Encounter Notes: All associated encounter notes This section contains the clinical notes associated to the Encounter. Date/Time Encounter Note(s) Provider Source August 30, 2023 09:10 AM PHYSICIAN NOTE: LOCAL TITLE: MD NOTE STANDARD TITLE: PHYSICIAN NOTE DATE OF NOTE: AUGUST 30, 2023@09:10 ENTRY DATE: AUGUST 30, 2023@09:10:04 AUTHOR: SONAL GOLD EXP COSIGNER: URGENCY: STATUS: COMPLETED HISTORY OF PRESENT ILLNESS: AMADO MISHRA, is a 83 yo MALE [place], who presents at the [facility] for follow up visit for chronic medical conditions. The follows up with MH team in [facility] labs- recenthly done and results were d/w david today Non- VA providers PCP- in [facility] oncology- Dr Cavanaugh in [place] Active problems - Computerized Problem List is the source for the followin-essential hypertension 2-hyperlipidemia 3-gout 4-Chronic low back pain 5- Borderline hyperglycemia The following VA and Non-VA meds were reconciled with patient: Active Outpatient Medications (including Supplies): Issue Date Status Last Fill Active Outpatient Medications Refills Expiration ======= 1) AMLODIPINE BESYLATE 5MG TAB Qty: 90 for ACTIVE (S) Issu:06-20-23 90 days Sig: TAKE ONE TABLET BY MOUTH Refills: 2 Last:09-22-23 ONCE DAILY FOR BLOOD PRESSURE/HEART, Expr:06-20-24 DO NOT TAKE WITH GRAPEFRUIT JUICE 2) CARBOXYMETHYLCELLULOSE NA 0.5% OPH SOLN ACTIVE Issu:07-10-23 Qty: 45 for 90 days Sig: INSTILL 1 Refills: 3 Last:07-10-23 DROP INTO EACH EYE FOUR TIMES A DAY Expr:07-10-24 FOR DRY EYE 3) DICLOFENAC NA 1% TOP GEL Qty: 400 for ACTIVE Issu:05-02-23 90 days Sig: APPLY 4 GRAMS TOPICALLY Refills: 3 Last:05-02-23 FOUR TIMES A DAY FOR OSTEOARTHRITIS - Expr:05-02-24 USE DOSING CARD PROVIDED IN BOX 4) HYALURONATE NA (DUROLANE)20MG/ML SYR 3ML ACTIVE Issu:05-08-23 Qty: 1 for 90 days Sig: INJECT 60MG Refills: 1 Last:06-10-23 INTRA-ARTICULAR ONE TIME Expr:05-08-24 5) KETOTIFEN 0.025% OPH SOLN Qty: 20 for ACTIVE Issu:07-10-23 90 days Sig: INSTILL 1 DROP INTO EACH Refills: 3 Last:07-10-23 EYE TWICE DAILY FOR ALLERGIC Expr:07-10-24 CONJUNCTIVITIS (IF YOU WEAR CONTACT LENSES, WAIT 10 MINUTES BEFORE INSERTING LENSES) 6) METHYLPHENIDATE HCL SR 20MG TAB Qty: 90 ACTIVE Issu:08-13-23 for 30 days Sig: TAKE ONE TABLET BY Refills: 0 Last:08-21-23 MOUTH THREE TIMES A DAY FOR ADHD Expr:09-12-23 NEXT FILL 09/20/23 7) PRAVASTATIN NA 20MG TAB Qty: 90 for 90 ACTIVE (S) Issu:06-20-23 days Sig: TAKE ONE TABLET BY MOUTH Refills: 1 Last:10-19-23 ONCE DAILY FOR CHOLESTEROL Expr:06-20-24 Start Date Active Non-VA Medications Refills Expiration ======= 1) Non-VA METOPROLOL TARTRATE 25MG TAB ACTIVE SiMG BY MOUTH TWICE DAILY 8 Total Medications ALLERGIES: ========= Patient has answered NKA LAB HISTORY: Fasting glucose 111, the rest of BMP, liver function test, lipids, TSH, CBC, hemoglobin A1c and GFRnormal limits PMH: HTN, HLP, Gout, Prostate cancer- diagnosed 2019- hormonotherapy; low vitamin D, OA, ADHD, ? asthma, multiple moles removed-benign SURGICAL HISTORY: tonsilectomy left shoulder surgery x2 right shoulder surgery left knee arthroscopic surgery FAMILY HISTORY: mother- father- COPD/ smoker SOCIAL HISTORY: with 3 children Smoking denies Drugs denies Alcohol denies HISTORY: PERIOD OF SERVICE - [employer] FROM Jan TO Jan COMBAT SERVICE INDICATED: No REVIEW OF SYSTEMS: No fever, chills, fatigue No chest pain shortness of breath or palpitations No cough or wheezing No abdominal pain nausea or vomiting No dysuria Chronic multiple joints pain for which he has been receiving steroid injection- low back pain, right knee, bilateral wrist and right shoulder on and off No headaches or dizziness PHYSICAL EXAMINATION: WD/overweight [place] seems to be in nonacute distress at the moment of examination S1-S2 positive, RRR ADRIANE, CTA bilateral Abdomen soft nontender to palpation No edema lower extremities AAO x3; ambulates without help ASSESSMENT/PLAN: 1-essential hypertension-blood pressure borderline elevated today in office but asymptomatic The [place] states checks blood pressure at home 2 or 3 times a week and his systolic blood pressure is usually is in 110s Advised to watch his diet for salt and exercise as tolerated I advised him to monitor blood pressure at home and if his systolic blood pressure is 140 or higher persistently to call our office back The verbalizes understanding and he is in agreement with above plan 8-dchwfphcyqzulx-kaqgvjam statins, healthy diet and exercise as tolerated Lipid panel at goal 3-gout-with no signs of exacerbation Continue preventive medications 4-Chronic low back pain-for which he he has been receiving epidural steroid injection No radiculopathy He would like to have RMV form filled out 5- Borderline hyperglycemia-but with normal hemoglobin A1c Advised decrease carbohydrates in diet and exercise as tolerated *-B12 and vitamin D D level ordered The will have the blood work done next week; if still low levels I am going to continue the medications *-Possible asthmacough variant for which he he has been using as needed budesonideformoterol; I explained to the [place] this is not a medication to be used as needed and he is not interesting to use it every day; I ordered albuterol MDI FOLLOW UP: ========= RTC -6-month follow-up for hypertension hyperlipidemia gout and chronic low back pain with fasting labs Today's documentation was made using voice recognition software. This note may contain spelling/grammatical errors secondary to this software. Every effort is made to correct errors, but if mistakes are found they need to be taken in context. UPCOMING APPOINTMENTS: 09/11/2023 09:30 CWM/SO/VVC/MHC/[facility]LEY 09/20/2023 09:00 [facility] CARE-OPHTHALMOLOGY 09/23/2023 10:30 CWM/NO/MEDICAL REHAB B 11/19/2023 08:30 CWM/SO/TELE/PHARM/PACT 1 12/23/2023 10:30 CWM/NO/MEDICAL REHAB B 07/14/2024 09:30 NHM/OPTOMETRY/CORONA/ No barriers; Patient understands and agrees to current treatment plan. If pt has any questions, concerns, or changes in current health status he/she will call or come in to the VA. Medication Reconciliation: Outpatient: Has the patient been taking medications as documented in the EMLR? YES: The patient has been taking medications as documented in the EMLR. Essential Medication List for Review used to complete this medication reconciliation. INCLUDED IN THIS LIST: Alphabetical list of active outpatient prescriptions dispensed from this [facility] (local) and dispensed from another [place] or [facility] facility (remote) as well as inpatient [...] JLV. Allergies/ADRs (Tool #5) FACILITY ALLERGY/ADR -------- [facility] [place] [facility] No Known Allergies [facility] NO KNOWN ALLERGIES Med Recon NoGlossary (Tool #1) INCLUDED IN THIS LIST: Alphabetical list of active outpatient prescriptions dispensed from this VA (local) and dispensed from another [place] or [facility] facility (remote) as well as inpatient orders (local pending and active), local clinic medications, locally documented non-VA medications, and local prescriptions that have or been discontinued in the past 90 days. Non-VA Meds Last Documented On: May 25, 2008 NOTE The display of VA prescriptions dispensed from another [place] or [facility] facility (remote) is limited to active outpatient prescription entries matched to National Drug File at the originating site and may not include some items such as investigational drugs, compounds, etc. NOT INCLUDED IN THIS LIST: Medications self-entered by the patient into personal health records (i.e. [employer]) are NOT included in this list. Non-VA medications documented outside this [place], remote inpatient orders (regardless of status) and remote clinic medications are NOT included in this list. The patient and provider must always discuss medications the patient is taking, regardless of where the medication was dispensed or obtained. ------ OUTPT ALBUTEROL 90MCG (CFC-F) 200D ORAL INHL (Status = Pending) INHALE 1 PUFF BY MOUTH EVERY 8 HOURS NEEDED Login Date: 08/30/23 Qty/Days Supply: Refills Ordered: 2 OUTPT AMLODIPINE BESYLATE 5MG TAB (Status = Active/Suspended) TAKE ONE TABLET BY MOUTH ONCE DAILY FOR BLOOD PRESSURE/HEART, DO NOT TAKE WITH GRAPEFRUIT JUICE Rx# [id number] Last Released: 06/25/23 Qty/Days Supply: Rx Expiration Date: 06/20/24 Refills Remainin OUTPT CARBOXYMETHYLCELLULOSE NA 0.5% OPH SOLN (Status = Active) INSTILL 1 DROP INTO EACH EYE FOUR TIMES A DAY FOR DRY EYE Rx# [id number] Last Released: 07/12/23 Qty/Days Supply: Rx Expiration Date: 07/10/24 Refills Remainin Indication: FOR DRY EYE OUTPT CHOLECALCIF 50MCG (D3-2,000UNIT) TAB (Status = ) TAKE ONE TABLET BY MOUTH ONCE DAILY FOR VITAMIN SUPPLEMENTATION Rx# [id number] Last Released: 07/12/23 Qty/Days Supply: 100 Rx Expiration Date: 08/29/23 Refills Remainin Indication: FOR VITAMIN D DEFICIENCY OUTPT CYANOCOBALAMIN 500MCG TAB (Status = ) TAKE ONE TABLET BY MOUTH ONCE DAILY FOR PREVENTION OF VITAMIN B12 DEFICIENCY Rx# [id number] Last Released: 05/22/23 Qty/Days Supply: 100 Rx Expiration Date: 08/29/23 Refills Remainin Indication: FOR PREVENTION OF VITAMIN B12 DEFICIENCY OUTPT DICLOFENAC NA 1% TOP GEL (Status = Active) APPLY 4 GRAMS TOPICALLY FOUR TIMES A DAY FOR OSTEOARTHRITIS - USE DOSING CARD PROVIDED IN BOX Rx# [id number] Last Released: 06/20/23 Qty/Days Supply: 400 Rx Expiration Date: 05/02/24 Refills Remainin OUTPT HYALURONATE NA (DUROLANE)20MG/ML SYR 3ML (Status = Active) INJECT 60MG INTRA-ARTICULAR ONE TIME Rx# [id number] Last Released: 06/10/23 Qty/Days Supply: Rx Expiration Date: 05/08/24 Refills Remainin Indication: OSTEOARTHRITIS OF THE KNEE OUTPT KETOTIFEN 0.025% OPH SOLN (Status = Active) INSTILL 1 DROP INTO EACH EYE TWICE DAILY FOR ALLERGIC CONJUNCTIVITIS (IF YOU WEAR CONTACT LENSES, WAIT 10 MINUTES BEFORE INSERTING LENSES) Rx# [id number] Last Released: 07/12/23 Qty/Days Supply: Rx Expiration Date: 07/10/24 Refills Remainin Indication: FOR ALLERGIC CONJUNCTIVITIS OUTPT METHYLPHENIDATE HCL SR 20MG TAB (Status = ) TAKE ONE TABLET BY MOUTH THREE TIMES A DAY FOR ADHD NEXT FILL 07/05/23 Rx# [id number] Last Released: 06/03/23 Qty/Days Supply: Rx Expiration Date: 06/14/23 Refills Remainin Indication: FOR ADHD OUTPT METHYLPHENIDATE HCL SR 20MG TAB (Status = Discontinued) TAKE ONE TABLET BY MOUTH THREE TIMES A DAY FOR ADHD NEXT FILL 08/01/23 Rx# [id number] Last Released: 07/04/23 Qty/Days Supply: Rx Expiration Date: 08/03/23 Refills Remainin Indication: FOR ADHD OUTPT METHYLPHENIDATE HCL SR 20MG TAB (Status = ) TAKE ONE TABLET BY MOUTH THREE TIMES A DAY FOR ADHD Rx# [id number] Last Released: 07/26/23 Qty/Days Supply: Rx Expiration Date: 08/08/23 Refills Remainin Indication: FOR ADHD OUTPT METHYLPHENIDATE HCL SR 20MG TAB (Status = Active) TAKE ONE TABLET BY MOUTH THREE TIMES A DAY FOR ADHD NEXT FILL 09/20/23 Rx# [id number] Last Released: 08/21/23 Qty/Days Supply: Rx Expiration Date: 09/12/23 Refills Remainin Indication: FOR ADHD Non-VA METOPROLOL TARTRATE 25MG TAB TAKE ONE TABLET BY MOUTH TWICE DAILY OUTPT PRAVASTATIN NA 20MG TAB (Status = Active/Suspended) TAKE ONE TABLET BY MOUTH ONCE DAILY FOR CHOLESTEROL Rx# [id number] Last Released: 07/23/23 Qty/Days Supply: Rx Expiration Date: 06/20/24 Refills Remainin ------ SUPPLIES ------ HTN Assess for Elevated BP>=140/90: The patient's blood pressure is usually adequately controlled. No medication changes are indicated at this time. /hector/ SONAL GOLD MD PRIMARY CARE PHYSICIAN Signed: 08/30/2023 09:39 SONAL GOLD August 30, 2023 09:02 AM PREVENTIVE MEDICIN E NURSING NOTE: LOCAL TITLE: CLINICAL REMINDERS/NURSING STANDARD TITLE: PREVENTIVE MEDICINE NURSING NOTE DATE OF NOTE: AUGUST 30, 2023@09:02 ENTRY DATE: AUGUST 30, 2023@09:02:37 AUTHOR: SELAM WHITMAN EXP COSIGNER: URGENCY: STATUS: COMPLETED Advance Directive Screen MH AD: Patient does not have a completed advance directive on file at any facility, VA or outside. S/he is not interested in completing one at this time. The patient received education about Advance Directives and written notification of his/her rights. Homelessness/Food Insecurity Screen: In the past 2 months, have you been living in stable housing that you own, rent, or stay in as part of a household? Yes - Living in stable housing. Are you worried or concerned that in the next 2 months you may NOT have stable housing that you own, rent, or stay in as part of a household? No - Not worried about housing near future The reports the following: Within the past 12 months, you worried whether your food would run out before you got money to buy more. Never true Within the past 12 months, the food you bought just didn't last and you didn't have money to get more. Never true Depression Screening: Perform PHQ-2 A PHQ-2 screen was performed. The score was 0 which is a negative screen for depression. Over the past two weeks, how often have you been bothered by the following problems? 1. Little interest or pleasure in doing things Not at all 2. Feeling down, depressed, or hopeless Not at all Falls & Incontinence Screen: Falls Screen: 1. One fall with no injury. Incontinence Screen: During the past 12 months, has the patient has any characteristics of incontinence (ability, voiding, leakage, etc.)? No incontinence. Tobacco Use Screening: The patient has never used tobacco. COVID-19 Immunization: Refused Moderna Monovalent COVID-19 vaccine Immunization: COVID-19 (MODERNA), MRNA, LNP-S, PF, 50 MCG/0.5 ML (AGES 12+ YEARS) Refusal Reason: PATIENT DECISION Patient refuses all immunization(s) in the COVID-19 group Date Documented: 08/30/23 09:03 Sexual Orientation: The patient thinks of their sexual orientation as: Straight or Heterosexual RHS Screen: RHS Screen Environmental Check Upon inquiry, the individual reports that the environment is safe to proceed. Informed Consent to Screen and Document The individual consents to proceed with screening. The individual consents to documentation of responses. PRIMARY SCREEN: In the past 12 months, how often did a current or former intimate partner (e.g., boyfriend, girlfriend, , , sexual partner): 1. Scream or curse at you Never 2. Insult or talk down to you Never 3. Threaten you with harm Never 4. Physically hurt you Never 5. Force or pressure you to have sexual contact against your will, or when you were unable to say no Never ?? The HITS tool (items 1-4 above) is US copyright protected by Jaden Burris MD, and the user has full rights to use it throughout the [place] system. PRIMARY SCREEN RESULT: The Primary Screen is NEGATIVE. The individual answered never to all forms of IPV above (i.e., answered never to all 5 items) The individual accepts education and/or resources: No EDUCATION: The individual indicated readiness to learn. Education offered during this session as noted above. The individual indicated understanding by asking relevant questions and making appropriate comments. No barriers to learning were observed or identified. /hector/ SELAM WHITMAN LPN Licensed Practical Nurse Signed: 08/30/2023 09:04 SELAM WHITMAN
--- OUTSIDE RECORDS SUMMARY | 2024-07-23 12:02 | XMS_ITS | Encounter Summary ---
Author Name [facility] [place] [facility] [place] [facility] [place] [facility] [place] Address [address] [place] [address] Care Team Providers Care Child Monitor Name Role Phone ASIYA NORIEGA Primary Care [...] Patient's Relationship to Policy Wheeler [facility] ([facility]) MEDICARE ADVANTAGE MCR ([facility]) Apr 08, 2016 [id number] [phone] JOLEEN MISHRA PATIENT [facility] ([facility]) MEDICARE ADVANTAGE MCR ([facility]) Apr 08, 2016 [id number] JOLEEN MISHRA PATIENT [facility] ([facility]) MEDICARE ADVANTAGE MCR ([facility]) Apr 08, 2014 [id number] JOLEEN MISHRA PATIENT 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 Date/Time Encounter Type Encounter Description Reason Provider Source Jan 15, 2024 09:00 AM OFFICE O/P EST LOW 20 [facility] - IND ICD-10-CM F90.9 Attention-deficit hyperactivity disorder, unspecified type ROQUE HADLEY [facility] Encounter Template Text not used by [place] Assessments - Encounter Diagnoses This section includes the primary and secondary diagnoses documented for the Encounter. Date/Time Primary/Secondary Diagnosis Diagnosis Name Provider Source Jan 15, 2024 09:37 AM PRIMARY Attention-deficit hyperactivity disorder, unspecified type ROQUE HADLEY [place] Plan of Treatment: Future Appointments (+ 6 months) and Future Tests (+/- 45 days) The Plan of Treatment section includes future care activities for the patient from all [place] [facility]. This section includes future appointments and future orders which are active, pending or scheduled. Future Appointments This section includes appointments that were scheduled to occur 6 months from the date of the Encounter, up to a maximum of 20 appointments. The data comes from all [place] treatment facilities. Appointment Date/Time Appointment Type Appointme nt Facility Name Feb 28, 2024 10:30 AM AMBULATORY - MEDICINE [facility] [place] [facility] Mar 10, 2024 03:00 PM AMBULATORY - MEDICINE [facility] [place] [facility] Mar 24, 2024 02:30 PM AMBULATORY - MEDICINE [facility] May 20, 2024 09:00 AM AMBULATORY - PSYCHIATRY [facility] Jun 08, 2024 10:30 AM AMBULATORY - MEDICINE [facility] [place] [facility] Jul 09, 2024 10:00 AM AMBULATORY - MEDICINE [facility] [place] [facility] Jul 14, 2024 09:30 AM AMBULATORY [facility] MED[facility] Social History: Smoking Status (Most current) [...] Facil ity August 30, 2023 09:00 AM [place]-TOBACCO NEVER USED [place] Tobacco Use History This section includes a history of the smoking, or tobacco-related health factors, that were collected on or before the date of the Encounter. The data comes from the [place] facility where the Encounter took place. Date/Time Smoking Status/Tobacco Use Comment [facility] August 22, 2022 10:00 AM VA-TOBACCO NEVER USED [place] August 16, 2020 10:00 AM VA-TOBACCO NEVER USED [place] September 02, 2019 03:09 PM VA-TOBACCO NEVER USED [place] Sep 09, 2018 10:15 AM VA-TOBACCO NEVER USED [place] Oct 08, 2017 10:16 AM LIFETIME NON-TOBACCO USER [place] Aug 01, 2016 11:13 AM LIFETIME NON-TOBACCO USER [place] Apr 29, 2015 12:47 PM LIFETIME NON-TOBACCO USER has never smoked. [place] May 17, 2008 10:30 AM LIFETIME NON-TOBACCO USER [place] Encounter Notes: All associated encounter notes This section contains the clinical notes associated to the Encounter. Date/Time Encounter Note(s) Provider Source Jan 15, 2024 08:33 AM TELEHEALTH NOTE: LOCAL TITLE: VA VIDEO CONNECT NOTE STANDARD TITLE: TELEHEALTH NOTE DATE OF NOTE: JAN 15, 2024@08:33 ENTRY DATE: JAN 15, 2024@08:34:20 AUTHOR: ROQUE HADLEY EXP COSIGNER: URGENCY: STATUS: COMPLETED VA Video Connect (VVC) Standard Documentation VVC Clinician Resources Only: E911 (Emergency Call Relay Center): [phone] National Veterans Crisis Line - 988 then press #1. [facility] Suicide Coordinator [phone], Ext. [phone]; Back-up Ext. [phone] [place] Police ALEJANDROSte[place]onds [phone] Introduction: Visit is being conducted by [place] [employer]. [place] identified with 2 identifiers: [X] Full Name [X] Date of [ ] VA ID Card Emergency Plan: [place] confirmed and/or provided the following information in case of emergency or technology failure. PATIENT PHONE - PHONE NUMBER [CELLULAR] - Is patient phone number correct, if not, enter below: Summit's phone number: AMADO MISHRA [address] [place], [place], [address] Summit's present location and address for appointment: home 's emergency contact name and phone number: as listed Summit reported that location is private and safe: Yes Informed Consent: Summit informed of the risks and benefits of Telehealth video care. has the right to refuse video services. If refuses video visit, a [id number] visit will be scheduled. verbalized consent for this video visit: Yes Summit provided consent for any other persons present for visit: Yes If yes, who and relationship to patient: Secure visit: Visit was locked for security and privacy: Yes Pertinent symptoms: ADD- medication management He continues to support his daughters who have health problems. Elyse has his own physical problems that he is coping with however he remains active Taking Ritalin HCL for ADD with good effect for concentration. Reports no side effects and sleeps very well. 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 Mood is stable. 1. Attention deficit hyperactivity disorder 2. Colonoscopy normal 3. Adjustment disorder with mixed emotional features 4. Closed fracture carpal bone 5. Narcotic drug user 6. Sacroiliac joint inflamed (SNOMED CT [id number]) 7. Shoulder: arthralgia * 8. Complete rupture of rotator cuff, nontraumatic 9. Backache 10. 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 Hypertension 13. Gout 14. Dermatitis or Eczema MENTAL STATUS Well groomed ,friendly Speech: normal rate, volume, and tone; [place] answered questions appropriately understandable, and relevant to the topic. Mood: euthymic- No S/I Cognition: intact Memory grossly intact SI/HI: denied suicidal or homicidal ideation or intent Abnormal perceptions: no auditory or visual hallucinations. Thought process: linear Thought content: no delusions Insight/Judgment: Both good at present time. 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 Remains active in community. 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 He states that he enjoys this work and continues to be active. He has joined a group but mobility is now an issue Labs/Radiology/Tests/Consultation _x_ none ordered __ obtained: labs [...] this patient. I asked the patient call [phone] ([place]) or to come to open access if needed Medication Reconciliation: Outpatient: Has the patient been taking medications as documented in the EMLR? YES: The patient has been taking medications as documented in the EMLR. Essential Medication List for Review used to complete this medication reconciliation. INCLUDED IN THIS LIST: Alphabetical list of active outpatient prescriptions dispensed from this [place] (local) and dispensed from another [place] or [facility] facility (remote) as well as [...] Hadley APRN, STAFF CLINICAL NURSE SPECIALIST Signed: 01/15/2024 09:37 ROQUE HADLEY
--- OUTSIDE RECORDS SUMMARY | 2024-07-23 12:02 | XMS_ITS | Encounter Summary ---
Author Organization [employer] Address [address] [place] [address] 7 h Floor [place] [id number] Care Team Providers Care Orthopedic Physical Therapist Name Role Phone Jennifer Sampson MD Primary Care Provider [phone] Encounter Details Date Type Department Care Team (Latest Contact Info) Description 04/13/2019 Abstract C CONVERSIONS Dental, Provider, DDS Social History Tobacco Use Types Packs/Day Years Used Date Smoking Tobacco: Never Assessed Sex and Gender Information Value Date Recorded Sex Assigned at Male 02/05/2022 10:25 AM EDT Legal Sex Male 10:25 AM EDT Gender Identity Not on file Sexual Orientation Not on file documented as of this encounter Plan of Treatment Not on file documented as of this encounter Visit Diagnoses Not on filedocumented in this encounter Care Teams Orthopedic Physical Therapist Relationship Specialty Start Date End Date Jennifer Sampson MD [address] [place] [address] PCP - General Family Medicine 03/06/22 documented as of this encounter
--- OUTSIDE RECORDS SUMMARY | 2024-07-23 12:02 | XMS_ITS | Encounter Summary ---
Author Name [facility] [place] Organization [facility] [place] Address [address] [place] [address] Care Team Providers Care Dado Operator Name Role Phone ASIYA NORIEGA Primary Care [...] Wheeler's Name Patient's Relationship to Policy Wheeler [facility] M[facility] ([facility]) MEDICARE ADVANTAGE MCR ([facility]) Apr 08, 2016 [id number] JOLEEN MISHRA PATIENT [facility] ([facility]) MEDICARE ADVANTAGE MCR ([facility]) Apr 08, 2016 [id number] JOLEEN MISHRA PATIENT [facility]) MEDICARE ADVANTAGE MCR ([facility]) Apr 08, 2014 [id number] JOLEEN MISHRA PATIENT 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 Date/Time Encounter Type Encounter Description Reason Pro vider Source Jul 22, 2024 02:35 PM Outpatient Encounter OPTOMETRY IHE Encounter Template Text not used by [place] Plan of Treatment: Future Appointments (+ 6 months) and Future Tests (+/- 45 days) The Plan of Treatment section includes future care activities for the patient from all [place] [facility]. This section includes future appointments and future orders which are active, pending or scheduled. Future Appointments This section includes appointments that were scheduled to occur 6 months from the date of the Encounter, up to a maximum of 20 appointments. The data comes from all [place] treatment facilities. Appointment Date/Time Appointment Type Appointme nt Facility Name August 26, 2024 09:00 AM AMBULATORY - PSYCHIATRY [facility] Sep 08, 2024 10:30 AM AMBULATORY - MEDICINE [place] [facility] [facility] Sep 15, 2024 09:00 AM AMBULATORY MEDICINE [place] [facility] [place] [facility] Sep 18, 2024 10:00 AM AMBULATORY - MEDICINE [facility] Nov 17, 2024 09:[address] [facility] [place] [facility] Dec 08, 2024 10:[address] [facility] [place] [facility] Active, Pending, and Scheduled Orders This section includes a listing of several types of active, pending, and scheduled orders, including clinic medications orders, diagnostic test orders, procedure orders and consult orders; where the start date of the order is 45 days before the date of the Encounter or 45 days after the date of theEncounter. The data comes from all [facility]. Test Date/Time Test Type Test Details Facility Name Jul 14, 2024 09:38 AM Consult Order COMMUNITY CARE-OPHTHALMOLOGY Cons Power Plant Assistant's [facility] [place] [facility] Lab Results: +/- 30 days of the encounter This section includes the Chemistry and Hematology Lab Results on record with [place] for the patient. Radiology Reports and Pathology Reports are provided separately, in subsequent sections. Lab Results This section contains the Chemistry/Hematology Results that were resulted 30 days before or 30 daysafter the date of the Encounter. Date/Time Source Result Type Result - Unit Interpretation Reference Range Specimen Type Comment Jun 30, 2024 01:26 PM [facility] TSH SERUM Specimen Type: SERUM No comment entered. Ordering Provider: ASIYA NORIEGA Report Released Date/Time: Jun 29, 2024 08:19 AM Reporting Lab: [address] [id number] Performing Lab: [address] [address] TSH 0.36 u[IU]/mL 0.35-5.00 Jun 30, 2024 01:26 PM [facility] HEMOGLOBIN A1C PANEL BLOOD Specimen T ype: [...] Jun 29, 2024 08:19 AM Reporting Lab: [address] [phone] Performing Lab: [address] [address] HEMOGLOBIN A1C 5.2 4.0-5.6 Jun 30, 2024 01:26 PM [facility] VITAMIN D (25-OH) SERUM Specimen Type : SERUM No comment entered. Ordering Provider: ASIYA NORIEGA Report Released Date/Time: Jun 29, 2024 08:19 AM Reporting Lab: [address] [phone] Performing Lab: [address] [phone] VITAMIN D (25-OH) 27 ng/mL 20-50 Jun 30, 2024 01:26 PM [facility] LIPID PANEL, NON FASTING SERUM Specim en Type: SERUM No comment entered. Ordering Provider: ASIYA NORIEGA Report Released Date/Time: Jun 29, 2024 08:19 AM Reporting Lab: [address] [phone] Performing Lab: [address] [address] CHOLESTEROL 172 mg/dL TRIGLYCERIDE 130 mg/dL 0-150 LDL calculated 82 mg/dL 0-129 CHOL/HDL 2.7 HDL CHOLESTEROL 64 mg/dL H 40-60 Jun 30, 2024 01:26 PM [facility] LIVER FUNCTION SERUM Specimen Type: SERUM No comment entered. Ordering Provider: ASIYA NORIEGA Report Released Date/Time: Jun 29, 2024 08:19 AM Reporting Lab: [address] [address] Performing Lab: [address] [phone] PROTEIN,TOTAL 7.6 g/dL 6.0-8.3 ALBUMIN 4.1 g/dL 3.5-5.0 ALKALINE PHOSPHATASE 82 U/L 40-150 AST 19 U/L 5-34 ALT 23 U/L BILIRUBIN, TOTAL 1.5 mg/dL H 0.2-1.2 BILIRUBIN, DIRECT 0.5 mg/dL 0-0.5 Jun 30, 2024 01:26 PM [facility] BASIC METABOLIC PANEL (non-fasting) SERUM Specimen Type: SERUM No comment entered. Ordering Provider: ASIYA NORIEGA Report Released Date/Time: Jun 29, 2024 08:19 AM Reporting Lab: [address] [address] Performing Lab: [address] [address] UREA NITROGEN 28 mg/dL H 7-25 GLUCOSE 102 mg/dL H 65-100 SODIUM 139 mmol/L 135-145 POTASSIUM 4.4 mmol/L 3.5-5.0 CHLORIDE 107 mmol/L 100-110 CO2 23 meq/L 20-30 CALCIUM 10.3 mg/dL H 8.5-10.2 CREATININE, Serum 0.91 mg/dL 0.50-1.40 eGFR(CKD-EPI 2020) 84 mL/min >60 Jun 30, 2024 01:26 PM [facility] URIC ACID SERUM Sp ecimen Type: SERUM No comment entered. Ordering Provider: ASIYA NORIEGA Report Released Date/Time: Jun 29, 2024 08:19 AM Reporting Lab: [address] [phone] Performing Lab: [facility] [address] [facility] [address] URIC ACID 6.5 mg/dL 3.5-7.2 Jun 30, 2024 01:26 PM [facility] CBC BLOOD Sp ecimen Type: BLOOD No comment entered. Ordering Provider: ASIYA NORIEGA Report Released Date/Time: Jun 29, 2024 08:19 AM Reporting Lab: [facility] [address] [facility] [address] Performing Lab: [facility] [address] [facility] [address] WBC 11.42 10*3/uL H 4.50-11.00 RBC 4.30 [...] and tobacco- related health factors from the [place] facility where the Encounter took place. Current Smoking Status This section includes the most current smoking, or tobacco-related health factor, from the [place] facility where the Encounter took place. Date/Time Current Smoking Status Comment Azam christine Jul 24, 2021 11:00 AM [facility]-TOBACCO NEVER USED [facility] Encounter Notes: All associated encounter notes This section contains the clinical notes associated to the Encounter. Date/Time Encounter Note(s) Provider Source Jul 22, 2024 02:38 PM LETTERS: LOCAL TITLE: PATIENT LETTER (B) STANDARD TITLE: LETTERS DATE OF NOTE: JUL 22, 2024@14:38 ENTRY DATE: JUL 22, 2024@14:38:34 AUTHOR: TERRI VALDES SA COSIGNER: URGENCY: STATUS: COMPLETED JUL 22, 2024 AMADO MISHRA [address] [place] [address] Dear AMADO MISHRA Thank you for choosing the Department of [facility] ([place]) [facility] as your primary choice for health care. As a partner in your health care, we are contacting you in writing since we have been unsuccessful in our attempts to reach you to date. We want to assure you we are doing everything possible to schedule Veterans for their [place] medical care appointments. Our records indicate you are due for an appointment in OPTOMETRY . If you would like to be seen, please contact [facility] at ext. [phone] to schedule an appointment. Thank you for your service to our nation, and we look forward to hearing from you soon. Sincerely, [facility] [address] [facility] [address] [place] [address] [place] [address] [facility] [address] [facility] [address] [place] [address] [place] [address] ext. [phone] [facility] [address] [facility] [address] [place] [address] [place] [address] ext. [phone] TERRI VALDES [facility] Jul 22, 2024 02:35 PM ADMINISTRATIVE NOTE: LOCAL TITLE: ADMINISTRATIVE RECALL NOTE STANDARD TITLE: ADMINISTRATIVE NOTE DATE OF NOTE: JUL 22, 2024@14:35 ENTRY DATE: JUL 22, 2024@14:35:35 AUTHOR: TERRI VALDES SA COSIGNER: URGENCY: STATUS: COMPLETED RTC orders: Unable to contact patient: Attempts to contact: 1st attempt: Left voicemail 2nd attempt: Letter mailed 3rd attempt: 4th attempt: Called, LM on to schedule appointment. Mailed letter. When the calls back please schedule for [facility] OPTOMETRY 3, with a PID of 07/19/2025. Provided specialties clinic call back phone number [phone] Ext: [phone] /hector/ TERRI VALDES Signed: 07/22/2024 14:38 TERRI VALDES [facility]
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
--- OUTSIDE RECORDS SUMMARY | 2024-07-23 12:02 | XMS_ITS | Encounter Summary ---
Author Name [facility] Address [address] [place] [id number] Care Team Providers Care Stationary Engineer Name Role Phone ASIYA NORIEGA Primary Care [...] Patient's Relationship to Policy Wheeler [facility] ([place] MEDICARE ADVANTAGE MCR [place]) Apr 08, 2016 [id number] JOLEEN MISHRA PATIENT [facility] ([place] MEDICARE ADVANTAGE [place] [place] Apr 08, 2016 [id number] JOLEEN MISHRA PATIENT [facility] ([place] MEDICARE ADVANTAGE [facility]CR ([place]) Apr 08, 2014 [id number] JOLEEN MISHRA PATIENT 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 ASIYA NORIEGA [facility] Apr 11, 2024 06:12 PM SECONDARY Disorder of the skin and subcutaneous tissue, unspecified ASIYA NORIEGA [facility] Apr 11, 2024 06:12 PM SECONDARY Essential (primary) hypertension ASIYA NORIEGA [facility] Apr 11, 2024 06:12 PM SECONDARY Hyperlipidemia, unspecified ASIYA NORIEGA [facility] Apr 11, 2024 06:12 PM SECONDARY Other specified respiratory disorders ASIYA NORIEGA CHAD Plan of Treatment: Future Appointments (+ 6 months) and Future Tests (+/- 45 days) The Plan of Treatment section includes future care activities for the patient [facility] [place] [facility] This section includes future appointments and future orders which are active, pending or scheduled. Future Appointments This section includes appointments that were scheduled to occur 6 months from the date of the Encounter, up to a maximum of 20 appointments. The data comes from all [place] treatment facilities. Appointment Date/Time Appointment Type Appointme nt Facility Name May 20, 2024 09:00 AM AMBULATORY - PSYCHIATRY [facility] Jun 08, 2024 10:30 AM AMBULATORY - MEDICINE [place] [facility] [place] [facility] Jul 09, 2024 10:00 AM AMBULATORY - MEDICINE [place] [facility] [place] [facility] Jul 14, 2024 09:30 AM AMBULATORY - MEDICINE [place] [facility] [place] [facility] Jul 16, 2024 02:00 PM AMBULATORY - MEDICINE [place] [facility] [place] [facility] August 26, 2024 09:00 AM AMBULATORY - PSYCHIATRY [facility] Sep 08, 2024 10:30 AM AMBULATORY - MEDICINE [place] [facility] [place] [facility] Sep 15, 2024 09:00 AM AMBULATORY - MEDICINE [place] [facility] [place] [facility] Sep 18, 2024 10:00 AM AMBULATORY - MEDICINE [facility] [place] Active, Pending, and Scheduled Orders This section includes a listing of several types of active, pending, and scheduled orders, including clinic medications orders, diagnostic test orders, procedure orders and consult orders; where the start date of the order is 45 days before the date of the Encounter or 45 days after the date of theEncounter. The data comes from all [place] treatment facilities. Test Date/Time Test Type Test Details Facility Name Mar 24, 2024 07:12 PM Consult Order DERMATOLOG Y/[facility] (OUTPT) [facility] Registered Radiographer's Choice [facility] Apr 27, 2024 01:54 PM Consult Order COMMUNITY CARE-REGULATOR OPERATOR [facility] Registered Radiographer's [facility] [place] [facility] Vital Signs: All taken on the encounter date This section contains inpatient and outpatient Vital Signs collected on the date of the Encounter. Date/Time Temperature Pulse Blood Pressure Respiratory Rate SP02 Pain Height Weight Body Mass Index Source Mar 24, 2024 02:32 PM 97.7 57 124/68 19 98 75 206 26 [facility] Social History: Smoking Status (Most current) and Tobacco Use (All prior to encounter date) This section includes the most current, and the historical, smoking and tobacco- related health factors from the AL facility where the Encounter took place. Current Smoking Status This section includes the most current smoking, or tobacco-related health factor, from the AL facility where the Encounter took place. Date/Time Current Smoking Status Comment Facil [facility] August 30, 2023 09:00 AM AL-TOBACCO NEVER USED [facility] Tobacco Use History This section includes a history of the smoking, or tobacco-related health factors, that were collected on or before the date of the Encounter. The data comes from the AL facility where the Encounter took place. Date/Time Smoking Status/Tobacco Use Comment F acility August 22, 2022 10:00 AM VA-TOBACCO NEVER USED [facility] August 16, 2020 10:00 AM VA-TOBACCO NEVER USED [facility] September 02, 2019 03:09 PM VA-TOBACCO NEVER USED [facility] Sep 09, 2018 10:15 AM VA-TOBACCO NEVER USED [facility] Oct 08, 2017 10:16 AM LIFETIME NON-TOBACCO USER [facility] Aug 01, 2016 11:13 AM LIFETIME NON-TOBACCO USER [facility] Apr 29, 2015 12:47 PM LIFETIME NON-TOBACCO USER has never smoked. [facility] May 17, 2008 10:30 AM LIFETIME NON-TOBACCO USER [facility] Encounter Notes: All associated encounter notes This section contains the clinical notes associated to the Encounter. Date/Time Encounter Note(s) Provider Source Mar 24, 2024 02:50 PM PRIMARY CARE NURSE PRACTITIONER OUTPATIENT NOTE: LOCAL TITLE: NURSE PRACTITIONER OUTPATIENT NOTE STANDARD TITLE: PRIMARY CARE NURSE PRACTITIONER OUTPATIENT NOTE DATE OF NOTE: MAR 24, 2024@14:50 ENTRY DATE: MAR 24, 2024@14:50:55 AUTHOR: ASIYA NORIEGA EXP COSIGNER: URGENCY: STATUS: COMPLETED PRIMARY CARE VISIT AMADO MISHRA, is a 83 y/o WHITE MALE [place] who [facility]. TYPE OF VISIT: Face to face New to this provider HPI: HTN - stable on Rx x 2 HLD - stable on statin recurrent bronchospasm - has inhaler PRN previous w/u negative Prostate CA - on weekly oral chemo. Nonsurgical. Recent PSA wnl. reports occasional urinary frequency, nocturia. has a growth to his left wrist - occasionally gets caught on things, which is painful. Would like removed. Recent labs reviewed and all medications were reconciled during this visit. HEALTHCARE PROVIDERS: community PCP Oncology HISTORY: PERIOD OF SERVICE - [employer] FROM Jan TO Jan COMBAT SERVICE INDICATED: No VITAL SIGNS: Temperature 97.7 F [36.5 C] (03/24/2024 14:32) Blood Pressure 124/68 (03/24/2024 14:32) Pulse 57 (03/24/2024 14:32) Respiration 19 (03/24/2024 14:32) Pain 8 (02/28/2024 10:29) BMI BMI: 25.8 Weight 206 lb [93.44 kg] (03/24/2024 14:32) Pulse Oximetry 98% (03/24/2024 14:32) ASSISTIVE DEVICES: none REVIEW OF SYSTEMS: CONSTITUTIONAL: No fevers, chills, unexpected weight changes. CARDIOVASCULAR: No chest pain, palpitations or peripheral edema. RESPIRATORY: No SOB, cough, sputum, wheeze today. GASTROINTESTINAL: Denies abdominal pain, N/V/D/C. No melena or hematochezia. GENITOURINARY: No dysuria, hematuria or urgency. Occasional frequency and nocturia. SKIN: skin growth left wrist PSYCHIATRIC: No new anxiety or depression. No sleep disturbance. NEUROLOGIC: No headaches, dizziness, numbness/tingling in the extremities or unilateral weakness. PHYSICAL EXAMINATION: General: Well-appearing in no obvious distress. Mental Status: Alert and oriented x4. Neck: Supple. No lymphadenopathy. No bruit. Thyroid unremarkable. Lungs: CTAB. Normal chest excursion. Eupneic respirations. CV: Heart tones S1, S2. RRR. No M/G/R. No peripheral edema. GI: Abdomen is soft and nontender. No palpable mass or organomegaly. : No CVA tenderness. Digital prostate exam deferred. Neuro: CN II through XII grossly intact. Normal speech. Normal gait. Integument: cutaneous horn noted to left medial wrist, la in color, rought texture. Psych: Normal mood and affect. Normal judgment. Cooperative with exam, follows commands. ALLERGIES: Patient has answered [facility] MAINTENANCE - see end of note PREVENTIVE MEDICINE GOALS Info Only: [facility] Video Connect Capable DUE NOW Mental Health Treatment Plan DUE NOW Medication Reconciliation DUE NOW (Optional) Whole Health Documentation DUE NOW ASSESSMENT/PLAN: Active problems - Computerized Problem List is the source for the followin. hx prostate CA - followed by oncology, has been stable. Continues on oral chemo weekly. 2. cutaneous horn - referral made to Derm for removal. 3. Hyperlipidemia - stable, continue statin. 4. Essential hypertension (SNOMED CT [id number]) - stable on Rx. 5. reactive airway with intermittent sx - continue inhaler PRN. No known triggers. FOLLOW UP: Return to clinic as noted below and/or sooner PRN UPCOMING APPOINTMENTS: 05/20/2024 09:00 [facility]/SO/VVC/MHC/[facility] 06/08/2024 10:30 [facility]/NO/MED REHAB 1 PA 07/09/2024 10:00 [facility]/WO/VVC/WHOLE HEALTH I 07/14/2024 09:30 [facility]/OPTOMETRY/[place]/ No barriers noted; patient understands and agrees to current treatment plan. If patient has any questions, concerns or changes in current health status he/she will call or come in to the [facility]. HM: Info Only: [facility] Video Connect Capable: Medication Reconciliation: Outpatient: Has the patient been [...] with a VA or non-VA provider. /hector/ LUL UGARTE CERTIFIED NURSE PRACTITIONER Signed: 04/11/2024 18:13 ASIYA NORIEGA [facility]
--- OUTSIDE RECORDS SUMMARY | 2024-07-23 12:02 | XMS_ITS ---
Author Name [facility] Organization [facility] [place] Address [address] [place] [address] Care Team Providers Care Customer Service Coordinator Name Role Phone ASIYA NORIEGA Primary Care [...] Wheeler's Name Patient's Relationship to Policy Wheeler [facility] ([facility]) MEDICARE ADVANTAGE MCR ([facility]) Apr 08, 2016 [id number] [phone] JOLEEN MISHRA PATIENT [facility] ([facility]) MEDICARE ADVANTAGE MCR ([facility]) Apr 08, 2016 [id number] JOLEEN MISHRA PATIENT [facility] ([facility]) MEDICARE ADVANTAGE MCR ([facility]) Apr 08, 2014 [id number] JOLEEN MISRHA PATIENT 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 Date/Time Encounter Type Encounter Description Reason Provider Source Sep 23, 2023 10:30 AM OFFICE O/P EST LOW 20 MIN PM&RS PHYSICIAN ICD-10-CM M19.011 Primary osteoarthritis , right shoulder CHENGSHOSHANA Enriquez E Encounter Template Text not used by DC Assessments - Encounter Diagnoses This section includes the primary and secondary diagnoses documented for the Encounter. Date/Time Primary/Secondary Diagnosis Diagnosis Name Provider Source Sep 23, 2023 03:06 PM PRIMARY Primary osteoarthritis, right shoulder SHOSHANA SANCHEZ [facility] Plan of Treatment: Future Appointments (+ 6 months) and Future Tests (+/- 45 days) The Plan of Treatment section includes future care activities for the patient from all [facility]. This section includes future appointments and future orders which are active, pending or scheduled. Future Appointments This section includes appointments that were scheduled to occur 6 months from the date of the Encounter, up to a maximum of 20 appointments. The data comes from all DC treatment facilities. Appointment Date/Time Appointment Type Appointme nt Facility Name Nov 19, 2023 08:30 AM AMBULATORY - MEDICINE [place] [facility] [place] [facility] Dec 23, 2023 10:30 AM AMBULATORY - MEDICINE [place] [facility] [place] [facility] Dec 27, 2023 07:30 AM AMBULATORY - REHAB MEDICIN E [place] [facility] [place] [facility] Jan 08, 2024 11:00 AM AMBULATORY - MEDICINE [place] [facility] [place] [facility] Jan 15, 2024 09:00 AM AMBULATORY - PSYCHIATRY [facility] Feb 28, 2024 10:30 AM AMBULATORY - MEDICINE [place] [facility] [place] [facility] Mar 10, 2024 03:00 PM AMBULATORY - MEDICINE [place] [facility] [place] [facility] Mar 24, 2024 02:30 PM AMBULATORY - MEDICINE [facility] Lab Results: +/- 30 days of [...] Type Comment September 05, 2023 10:22 AM [facility] VITAMIN D 25-OH (Therapy monitor) SERUM Specimen [...] For additional information, please refer to [email or web address] (This link is being provided for informational/ educational purposes only.) This test was developed and its analytical performance characteristics have been determined by [employer] [place]. It has not been cleared or approved by the U.S. Food and Drug Administration. This assay has been validated pursuant to the CLIA regulations and is used for clinical purposes. This test was developed and its analytical performance characteristics have been determined by [employer] [place]. It has not been cleared or approved by the U.S. Food and Drug Administration. This assay has been validated pursuant to the CLIA regulations and is used for clinical purposes. Test Performed by [facility], [facility], [address] [place] [address] Yang More M.D., Ph.D., Director of Laboratories , CLIA [id number] TEST PERFORMED AT: , Ordering Provider: SONAL GOLD Report Released Date/Time: August 30, 2023 09:29 AM Reporting Lab: [facility] [place] [address] [facility] [address] Performing Lab: [facility] [address] [address] VITAMIN D, 25-OH, TOTAL 27 ng/mL L 30-100 VITAMIN D, 25-OH, D3 27 ng/mL VITAMIN D, 25-OH, D2 <4 ng/mL September 05, 2023 10:22 AM [facility] VITAMIN B12 SERUM Specimen Type: SERUM No comment entered. Ordering Provider: SONAL GOLD Report Released Date/Time: August 30, 2023 09:29 AM Reporting Lab: [address] [address] Performing Lab: [address] [address] VITAMIN B12 1133 pg/mL H 200-900 August 28, 2023 08:45 AM [facility] LIPID PANEL FASTING SERUM Specimen Ty pe: SERUM No comment entered. Ordering Provider: SONAL GOLD Report Released Date/Time: August 14, 2023 09:10 AM Reporting Lab: [address] [address] Performing Lab: [address] [address] CHOLESTEROL 178 mg/dL TRIGLYCERIDE 131 mg/dL 0-150 LDL calculated 95 mg/dL 0-129 CHOL/HDL 3.1 HDL CHOLESTEROL 57 mg/dL 40-60 August 28, 2023 08:45 AM [facility] BASIC METABOLIC PANEL (non-fasting) SERUM Specimen Type: SERUM No comment entered. Ordering Provider: SONAL GOLD Report Released Date/Time: August 14, 2023 09:10 AM Reporting Lab: [address] [address] Performing Lab: [address] [address] UREA NITROGEN 22 mg/dL 7-25 GLUCOSE 111 mg/dL H 65-100 SODIUM 137 mmol/L 135-145 POTASSIUM 4.6 mmol/L 3.5-5.0 CHLORIDE 104 mmol/L 100-110 CO2 24 meq/L 20-30 CREATININE, Serum 1.03 mg/dL 0.50-1.40 eGFR(CKD-EPI 2020) 73 mL/min >60 August 28, 2023 08:45 AM [facility] HEMOGLOBIN A1C PANEL BLOOD Specimen T ype: [...] August 14, 2023 09:10 AM Reporting Lab: [facility] [address] [address] Performing Lab: [facility] [address] [address] HEMOGLOBIN A1C 5.3 4.0-5.6 August 28, 2023 08:45 AM [facility] LIVER FUNCTION SERUM Specimen Type: SERUM No comment entered. Ordering Provider: SONAL GOLD Report Released Date/Time: August 14, 2023 09:10 AM Reporting Lab: [facility] [address] [address] Performing Lab: [facility] [address] PROTEIN,TOTAL 7.1 g/dL 6.0-8.3 ALBUMIN 4.0 g/dL 3.5-5.0 ALKALINE PHOSPHATASE 82 U/L 40-150 AST 18 U/L 5-34 ALT 21 U/L BILIRUBIN, TOTAL 1.4 mg/dL H 0.2-1.2 BILIRUBIN, DIRECT 0.5 mg/dL 0-0.5 August 28, 2023 08:45 AM [facility] TSH SERUM Sp ecimen Type: SERUM No comment entered. Ordering Provider: SONAL GOLD Report Released Date/Time: August 14, 2023 09:10 AM Reporting Lab: [facility] [address] [address] Performing Lab: DC [facility] [address] [address] TSH 1.31 u[IU]/mL 0.35-5.00 August 28, 2023 08:45 AM [facility] CBC AND DIFF (AUTO) BLOOD Specimen Ty pe: BLOOD No comment entered. Ordering Provider: SONAL GOLD Report Released Date/Time: August 14, 2023 09:10 AM Reporting Lab: [facility] [address] [address] Performing Lab: [facility] [address] [facility] [address] WBC 9.42 10*3/uL 4.50-11.00 RBC 4.09 10*6/uL L 4.23-5.66 HGB 13.4 g/dL 12.8-17 HCT 40.0 39.2-50.4 MCV 97.8 fL 82-99 MCHC 33.5 g/dL 30.8-35.1 PLT 363 10*3/uL H 140-360 RDW-CV 13.1 12.0-16.0 Hays, Abs 0.73 10*3/uL 0.30-1.10 MCH 32.8 pg H 26.2-32.6 Neut % 59.3 43.7-75.8 Lymph % 29.3 14.0-42.3 [place]ays % 7.7 5.1-13.7 Eos % 1.5 0.4-6.8 [...] Pain Height Weight Body Mass Index Source Sep 23, 2023 10:35 AM 120/60 7 [facility] Social History: Smoking Status (Most current) and [...] 24, 2021 11:00 AM VA-TOBACCO NEVER USED [facility] Encounter Notes: All associated encounter notes This section contains the clinical notes associated to the Encounter. Date/Time Encounter Note(s) Provider Source Sep 23, 2023 11:14 AM PHYSICAL MEDICINE REHAB NOTE: LOCAL TITLE: PM&R BACK/JOINT PROCEDURE NOTE STANDARD TITLE: PHYSICAL MEDICINE REHAB NOTE DATE OF NOTE: SEP 23, 2023@11:14 ENTRY DATE: SEP 23, 2023@11:14:40 AUTHOR: JOAQUIM SANCHEZ COSIGNER: URGENCY: STATUS: COMPLETED PROCEDURE: Right intra-articular shoulder injection with cortisone. INDICATION: Shoulder pain. MEDICATIONS:40 mg triamcinolone and 3mL of 1% lidocaine. HISTORY: [place] presents today with persistent right shoulder pain. He has severe osteoarthritis of the right shoulder with an absent rotator cuff. His pain levels have been upwards of 7 out of 10 on an analog scale. He has difficulties dressing as well as difficulties at nighttime with sleep. Oftentimes feels a grinding sensation. No numbness or tingling into the hands to the arms. Mild cervical discomfort periodically. EXAM: Gross crepitus in the right shoulder is identified. Range of motion there is 40 degrees of abduction with flexion to 60 degrees 40 degrees of abduction with flexion to 60 degrees external rotation is limited to 20 degrees with internal rotation to the buttock. There is weakness with resisted external rotation abduction as well as with internal rotation. Tenderness is in the glenohumeral joint. Mild tenderness over the acromioclavicular joint. Impingement noted with positive Neer's and positive Cristobal. INFORMED CONSENT: Obtained verbally, and through IMED. [...] swelling of the shoulder. TIME OUT NOTE TIME:Sep@10:40 correctly stated: [X]Full name: AMADO MISHRA [X]Last 4 of #: [id number] [X]: Jul PROVIDER NAME: Joaquim Sanchez PA-c STAFF NAME: Ruth Kumari RN Lot #: [id number] Exp: 2024-08 Patient was seated with right shoulder relaxed. Posterior lateral corner was palpated and marked at the soft spot Cleansed with povidone x3. Coracoid was then palpated. 25- gauge 1-1/2 inch needle was advanced in contact/slight medial direction until Contact was made with the os. after negative aspiration for heme with loss [...] contact me with any issues. Pre-procedure pain level:10 Post-procedure pain level:04/17 Assessment and plan: 83-year-old [place] with advanced osteoarthritis of the right shoulder. Injected today with good effect. did [facility] be provided in order to a right L5-S3 lateral branch blocks for the sacroiliitis. Follow-up will be arranged in 3 months. Medication Reconciliation: Outpatient: Has the patient been [...] [facility] [place] [facility] No Known Allergies [facility] NO KNOWN ALLERGIES Med Soy Leija (Tool #1) INCLUDED IN THIS LIST: Alphabetical list of active outpatient prescriptions dispensed from this DC (local) and dispensed from another DC or [facility] facility (remote) as well as inpatient orders (local pending and active), local clinic medications, locally documented non-VA medications, and local prescriptions that have or been discontinued in the past 90 days. Non-VA Meds Last Documented On: May 25, 2008 NOTE The display of VA prescriptions dispensed from another DC or [facility] facility (remote) is limited to active outpatient prescription entries matched to National Drug File at the originating site and may not include some items such as investigational drugs, compounds, etc. NOT INCLUDED IN THIS LIST: Medications self-entered by the patient into personal health records (i.e. [facility]) are NOT included in this list. Non-VA [...] EVERY 8 HOURS NEEDED FOR BRONCHOSPASM Rx# [id number] Last Released: 09/05/23 Qty/Days Supply: Rx Expiration Date: 08/30/24 Refills Remainin Indication: FOR BRONCHOSPASM OUTPT AMLODIPINE BESYLATE 5MG TAB (Status = Active/Suspended) TAKE ONE TABLET BY MOUTH ONCE DAILY FOR BLOOD PRESSURE/HEART, DO NOT TAKE WITH GRAPEFRUIT JUICE Rx# [id number] Last Released: 09/13/23 Qty/Days Supply: Rx Expiration Date: 06/20/24 Refills Remainin OUTPT CARBOXYMETHYLCELLULOSE NA 0.5% OPH SOLN (Status = Active) INSTILL 1 DROP INTO EACH EYE FOUR TIMES A DAY FOR DRY EYE Rx# [id number] Last Released: 07/12/23 Qty/Days Supply: 45 Rx Expiration Date: 07/10/24 Refills Remainin Indication: FOR DRY EYE OUTPT CHOLECALCIF 50MCG (D3-2,000UNIT) TAB (Status = ) TAKE ONE TABLET BY MOUTH ONCE DAILY FOR VITAMIN SUPPLEMENTATION Rx# [id number] Last Released: 07/12/23 Qty/Days Supply: 100 Rx Expiration Date: 08/29/23 Refills Remainin Indication: FOR VITAMIN D DEFICIENCY OUTPT CHOLECALCIF 50MCG (D3-2,000UNIT) TAB (Status = Pending) TAKE ONE TABLET BY MOUTH ONCE DAILY FOR VITAMIN SUPPLEMENTATION Renewed from Rx# [id number] Qty/Days Supply: Login Date: 09/23/23 Refills Ordered: 3 OUTPT CYANOCOBALAMIN 500MCG TAB (Status = Discontinued) TAKE ONE TABLET BY MOUTH ONCE DAILY FOR PREVENTION OF VITAMIN B12 DEFICIENCY Rx# [id number] Last Released: 05/22/23 Qty/Days Supply: Rx Expiration Date: 08/29/23 Refills Remainin Indication: FOR PREVENTION OF VITAMIN B12 DEFICIENCY OUTPT DICLOFENAC NA 1% TOP GEL (Status = Active) APPLY 4 GRAMS TOPICALLY FOUR TIMES A DAY FOR OSTEOARTHRITIS - USE DOSING CARD PROVIDED IN BOX Rx# [id number] Last Released: 09/23/23 Qty/Days Supply: 400/ Rx Expiration Date: 05/02/24 Refills Remainin OUTPT HYALURONATE NA (DUROLANE)20MG/ML SYR 3ML (Status = Active) INJECT 60MG INTRA-ARTICULAR ONE TIME Rx# [id number] Last Released: 06/10/23 Qty/Days Supply: Rx Expiration Date: 05/08/24 Refills Remainin Indication: OSTEOARTHRITIS OF THE KNEE OUTPT KETOTIFEN 0.025% OPH SOLN (Status = Active) INSTILL 1 DROP INTO EACH EYE TWICE DAILY FOR ALLERGIC CONJUNCTIVITIS (IF YOU WEAR CONTACT LENSES, WAIT 10 MINUTES BEFORE INSERTING LENSES) Rx# [id number] Last Released: 07/12/23 Qty/Days Supply: Rx Expiration Date: 07/10/24 Refills Remainin Indication: FOR ALLERGIC CONJUNCTIVITIS OUTPT METHYLPHENIDATE HCL SR 20MG TAB (Status = Discontinued) TAKE ONE TABLET BY MOUTH THREE TIMES A DAY FOR ADHD NEXT FILL 08/01/23 Rx# [id number] Last Released: 07/04/23 Qty/Days Supply: Rx Expiration Date: 08/03/23 Refills Remainin Indication: FOR ADHD OUTPT METHYLPHENIDATE HCL SR 20MG TAB (Status = ) TAKE ONE TABLET BY MOUTH THREE TIMES A DAY FOR ADHD Rx# [id number] Last Released: 07/26/23 Qty/Days Supply: Rx Expiration Date: 08/08/23 Refills Remainin Indication: FOR ADHD OUTPT METHYLPHENIDATE HCL SR 20MG TAB (Status = Discontinued) TAKE ONE TABLET BY MOUTH THREE TIMES A DAY FOR ADHD NEXT FILL 09/20/23 Rx# [id number] Last Released: 08/21/23 Qty/Days Supply: Rx Expiration Date: 09/12/23 Refills Remainin Indication: FOR ADHD OUTPT METHYLPHENIDATE HCL SR 20MG TAB (Status = Active) TAKE ONE TABLET BY MOUTH THREE TIMES A DAY FOR ADHD NEXT FILL 10/18/23 Rx# [id number] Last Released: 09/16/23 Qty/Days Supply: Rx Expiration Date: 10/10/23 Refills Remainin Indication: FOR ADHD Non-VA METOPROLOL TARTRATE 25MG TAB TAKE ONE TABLET BY MOUTH TWICE DAILY OUTPT PRAVASTATIN NA 20MG TAB (Status = Active/Suspended) TAKE ONE TABLET BY MOUTH ONCE DAILY FOR CHOLESTEROL Rx# [id number] Last Released: 07/23/23 Qty/Days Supply: Rx Expiration Date: 06/20/24 Refills Remainin SUPPLIES /hector/ JOAQUIM SANCHEZ [facility] Signed: 09/23/2023 15:06 JOAQUIM SANCHEZ [facility] [place] [facility]
--- OUTSIDE RECORDS SUMMARY | 2024-07-23 12:02 | XMS_ITS | Encounter Summary ---
Author Name [facility] of [facility] ([place]) Organization [facility] [place] Address [address] [place] [address] Care Team Providers Care Shipyard Laborer Name Role Phone ASIYA NORIEGA Primary Care [...] Wheeler's Name Patient's Relationship to Policy Wheeler [facility] ([facility]) MEDICARE ADVANTAGE MCR ([facility]) Apr 08, 2016 [id number] JOLEEN MISHRA PATIENT [facility] ([facility] MEDICARE ADVANTAGE MCR ([facility]) Apr 08, 2016 [id number] JOLEEN MISHRA PATIENT [facility] ([facility]) MEDICARE ADVANTAGE MCR ([facility]) Apr 08, 2014 [id number] [phone] JOLEEN MISHRA PATIENT 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 Date/Time Encounter Type Encounter Description Reason Provider Source May 20, 2024 09:00 AM OFFICE O/P EST LOW 20 MIN [facility] - IND ICD-10-CM R41.840 Attention and concentration deficit HAD[facility]ROQUE [facility] Encounter Template Text not used by OR Assessments - Encounter Diagnoses This section includes the primary and secondary diagnoses documented for the Encounter. Date/Time Primary/Secondary Diagnosis Diagnosis Name Provider Source May 20, 2024 09:25 AM PRIMARY Attention and concentration deficit ROQUE HADLEY [place] Plan of Treatment: Future Appointments (+ 6 months) and Future Tests (+/- 45 days) The Plan of Treatment section includes future care activities for the patient from all [facility]. This section includes future appointments and future orders which are active, pending or scheduled. Future Appointments This section includes appointments that were scheduled to occur 6 months from the date of the Encounter, up to a maximum of 20 appointments. The data comes from all [place] treatment facilities. Appointment Date/Time Appointment Type Appointme nt Facility Name Jun 08, 2024 10:30 AM AMBULATORY - MEDICINE [place] [facility] [place] [facility] Jul 09, 2024 10:00 AM AMBULATORY - MEDICINE [place] [facility] [place] [facility] Jul 14, 2024 09:30 AM AMBULATORY - MEDICINE [place] [facility] [place] [facility] Jul 16, 2024 02:00 PM AMBULATORY - MEDICINE [place] [facility] [place] [facility] August 26, 2024 09:00 AM AMBULATORY - PSYCHIATRY [facility] Sep 08, 2024 10:30 AM AMBULATORY - MEDICINE [place] [facility] [place] [facility] Sep 15, 2024 09:00 AM AMBULATORY - MEDICINE [place] [facility] [place] [facility] Sep 18, 2024 10:00 AM AMBULATORY - MEDICINE [facility] Nov 17, 2024 09:00 AM AMBULATORY - MEDICINE [facility] [place] [facility] Active, Pending, and Scheduled Orders This section includes a listing of several types of active, pending, and scheduled orders, including clinic medications orders, diagnostic test orders, procedure orders and consult orders; where the start date of the order is 45 days before the date of the Encounter or 45 days after the date of theEncounter. The data comes from all [place] treatment [facility]. Test Date/Time Test Type Test Details Facility Name Apr 27, 2024 01:54 PM Consult Order [facility] [place] [facility] Social History: Smoking Status (Most current) and Tobacco Use (All prior to encounter date) This section includes the most current, and the historical, smoking and tobacco- related health factors from the OR facility where the Encounter took place. Current Smoking Status This section includes the most current smoking, or tobacco-related health factor, from the OR facility where the Encounter took place. Date/Time Current Smoking Status Comment Facil itkei August 30, 2023 09:00 AM VA-TOBACCO NEVER USED [place] Tobacco Use History This section includes a history of the smoking, or tobacco-related health factors, that were collected on or before the date of the Encounter. The data comes from the OR facility where the Encounter took place. Date/Time Smoking Status/Tobacco Use Comment F ernesto August 22, 2022 10:00 AM [place]-TOBACCO NEVER USED [place] August 16, 2020 10:00 AM VA-TOBACCO NEVER USED [place] September 02, 2019 03:09 PM VA-TOBACCO NEVER USED [place] Sep 09, 2018 10:15 AM VA-TOBACCO NEVER USED [place] Oct 08, 2017 10:16 AM LIFETIME NON-TOBACCO USER [place] Aug 01, 2016 11:13 AM LIFETIME NON-TOBACCO USER [place] Apr 29, 2015 12:47 PM LIFETIME NON-TOBACCO USER has never smoked. [place] May 17, 2008 10:30 AM LIFETIME NON-TOBACCO USER [place] Encounter Notes: All associated encounter notes This section contains the clinical notes associated to the Encounter. Date/Time Encounter Note(s) Provider Source May 20, 2024 08:43 AM TELEHEALTH NOTE: LOCAL TITLE: VA VIDEO CONNECT NOTE STANDARD TITLE: TELEHEALTH NOTE DATE OF NOTE: MAY 20, 2024@08:43 ENTRY DATE: MAY 20, 2024@08:43:23 AUTHOR: ROQUE HADLEY EXP COSIGNER: URGENCY: STATUS: COMPLETED VA Video Connect (VVC) Standard Documentation VVC Clinician Resources Only: E911 (Emergency Call Relay Center): [phone] National Veterans Crisis Line - 578 then press #1. ALEJANDRO Suicide Coordinator [phone], Ext. [phone]; Back-up Ext. [phone] [place] Police, Paulie ALLEN [phone] Introduction: Visit is being conducted by [place] [employer]. Torrey identified with 2 identifiers: [X] Full Name [X] Date of [ ] VA ID Card Emergency Plan: confirmed and/or provided the following information in case of emergency or technology failure. PATIENT PHONE - PHONE NUMBER [CELLULAR] - Is patient phone number correct, if not, enter below: 's phone number: AMADO MISHRA [address] [place], [place], [address] 's present location and address for appointment: home Torrey's emergency contact name and phone number: as listed Torrey reported that location is private and safe: Yes Informed Consent: informed of the risks and benefits of Telehealth video care. has the right to refuse video services. If refuses video visit, a [id number] visit will be scheduled. verbalized consent for this video visit: Yes Torrey provided consent for any other persons present for visit: Yes If yes, who and relationship to patient: Secure visit: Visit was locked for security and privacy: Yes Pertinent symptoms: ADD- medication management He continues to support his family who have health problems. Elyse has his [...] user 6. Sacroiliac joint inflamed (SNOMED CT [id number]) 7. Shoulder: arthralgia * 8. Complete rupture of rotator cuff, nontraumatic 9. Backache 10. 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 Hypertension 13. Gout 14. Dermatitis or Eczema MENTAL STATU ,friendly Speech: normal rate, volume, and tone; [...] engineering project. 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 Remains active in community. He also volunteers with the [facility] dept of [facility]-pre release program. He states that he enjoys this work [...] this patient. I asked the patient call [phone] ([facility]) or to come to open access if [...] [place] APRN, STAFF CLINICAL NURSE SPECIALIST Signed: 05/20/2024 09:25 ROQUE HADLEY [place]
--- OUTSIDE RECORDS SUMMARY | 2024-07-23 12:02 | XMS_ITS | Clinical Summary ---
Author Organization [employer] Address [address] [facility] 7t [place] [address] Care Team Providers Care Carriage Dogger Name Role Phone Jennifer Sampson MD Primary Care Provider [phone] Social History Tobacco Use Types Packs/Day Years Used Date Smoking Tobacco: Never Assessed Sex and Gender Information Value Date Recorded Sex Assigned at Male 02/05/2022 10:25 AM EDT Legal Sex Male 10:25 AM EDT Gender Identity Not on file Sexual Orientation Not on file Plan of Treatment Health Maintenance Due Date Last Done Comments Depression Screening 1940 Lipid Panel 1941 Alcohol/Substance Use Screening 1953 Tobacco Screening 1952 DTaP/Tdap/Td Vaccines (1 - Tdap) 1960 Pneumococcal Vaccine: 50+ Ye ars (1 of 1 - PCV) 07/16/1991 Zoster Vaccines (1 of 2) 07/16/1991 RSV Patients and Pa tients Aged 60 years or older (1 - 1-dose 75+ series) 2016 COVID-19 Vaccine ( - 2023-2 5 season) 2023 Influenza Vaccine (#1) 2023 HIB Vaccines Aged Out No longer eligi ble based on patient's age to complete this topic HPV Vaccines Aged Out No longer eligi ble based on patient's age to complete this topic Hepatitis A Vaccines Aged Out No long er eligible based on patient's age to complete this topic Hepatitis B Vaccines Aged Out No long er eligible based on patient's age to complete this topic IPV Vaccines Aged Out No longer eligi ble based on patient's age to complete this topic Meningococcal Vaccine Aged Out No sonu elan eligible based on patient's age to complete this topic RSV under 20 months Aged Out No longe r eligible based on patient's age to complete this topic Rotavirus Vaccines Aged Out No longer eligible based on patient's age to complete this topic Care Teams Carriage Dogger Relationship Specialty Start Date End Date Jennifer Sampson MD [address] [facility] [address] PCP - General Family Medicine 03/06/22
== END 2024-07-23 13:11 | disposition home or self-care (01) ==
LOC: HO.HUSH 10:10
PROVIDERS: Visit Provider Urology
DX: C61 Malignant neoplasm of prostate (principal)
CPT/HCPCS: 99214; G2211

== ENCOUNTER → 2024-07-23 10:10 | Outpatient (BNVA) | payer MEDICARE, SELFPAY | PROVIDERS: Visit Provider Urology ==

== ENCOUNTER 2025-01-22 08:55 | Outpatient (AMB) | payer MEDICARE, SELFPAY ==
--- NOTE | 2025-01-22 09:00 | MHC.OFFVIS ---
Intake Visit Reasons: 6M follow up/ PSA Intake Note: patient presents today for: 6mo follow up/PSA urology medications: allopurinol, finasteride blood thinners: none labs done 01/05/25: testo 241, PSA 0.4 Automobile Relocation Engineer Required: No Accompanied by: Self / Same As Patient Allergies No Known Allergies Allergy (Verified 01/22/25 09:01) HPI Comments Details: Juan Antonio is a very pleasant male. He is a patient of Dr. Ventura. He is seen for the following urologic conditions - prostate cancer - intermittent hormone therapy 6 month follow-up - PSA and testosterone within range Otherwise feeling relatively good control of urination Discussed daughters the eldest had stage IV lung cancer on Keytruda, youngest has breast cancer on tamoxifen Prostate Cancer - Grade Group 3 2018 intermittent hormone therapy Diagnosed with Dr. Baltazar in 2018 Initial pathology Juju 6, 7. Component of Juju 4 + 3 Initial PSA 7.25 Initial management GnRH - he wanted to continue this rather than radiation - Last GnRH 04/2019 PSA 04/27 0.8, 01/25 <0.1, 07/27 <0.1, 01/26 <0.1 T 3, 05/30 <0.1 T 106, 10/27 <0.1 T 285, 03/29 0.3 T 305, 10/28 0.3, 06/29 0.4, 12/30 0.4, 06/30 0.5, 01/30 0.4 T 240 Current therapy finasteride - low level 3x a week Plan for PSA surveillance 6 months [facility] Medical History Gout Attention deficit hyperactivity disorder Allergic rhinitis Prostate cancer Elevated PSA Primary osteoarthritis of left wrist Surgical History History of surgery Review of Systems Const Denies chills and Denies fever(s) Card Reports no additional complaints and Denies syncope Resp Denies cough GI Denies abdominal pain and Denies heartburn Reports as per HPI and Denies change in libido Neuro Denies syncope Psych Denies change in libido Endo Denies change in libido Physical Exam Const General: cooperative, healthy appearing, comfortable and no acute distress Orientation/consciousness: patient oriented x3 HEENT Face and sinus: Yes normal facial exam Mouth: moist mucous membranes Neck Neck: Yes normal visual inspection, Yes full ROM and Yes trachea midline Chest Chest palpation & inspection: normal inspection of the chest Resp Effort & Inspection: normal respiratory effort, able to speak in complete sentences and no respiratory distress GI Inspection: Yes normal to inspection Back/Spine/Pelvis Cervical Spine: normal cervical lordosis Thoracic/Lumbar Spine: thoracic and lumbar spine normal to inspection Skin General skin exam: no rashes or lesions noted Neuro General: patient oriented x3, gait normal, tone normal and moves all extremities Extrem General: Yes normal to inspection and Yes capillary refill normal Assessment & Plan Assessment & Plan (1) Prostate cancer: Comment: Grade group 3 - intermittent hormone therapy Code(s): C61 - Malignant neoplasm of prostate Category: Medical Plan Six-month follow-up repeat lab Orders: Orders Prostate Specific Antigen 6 Months C61 - Malignant neoplasm of prostate Patient Instructions: This note is constructed using voice recognition software. While every effort has been made to ensure accuracy financial systems manager errors may have been included. Imaging studies, laboratory and physical exam results were discussed and reviewed in detail. No major barriers to patient understanding were identified. An opportunity to ask questions regarding the treatment plan was provided. All questions were answered. The patient expressed understanding and agreement with the above treatment plan. The patient is aware they should contact our office by phone for worsening of their current condition or the appearance of new urologic symptoms. Compliance is encouraged with any medications and followup testing that is ordered. It is a privilege to participate in the urologic care of your patient. If you have any questions or concerns regarding treatment for the above conditions, or other urologic issues, please do not hesitate to contact me. The office telephone contact is [phone]. Sincerely, Dr Jose Irving MD, [facility] - Urology Compassionate Specialist Care for the Genitourinary System Coding Level of Care Code Est Pt Level 3 (44369) Complex EM visit Add On G2211 Diagnoses Prostate cancer C61
--- OUTSIDE RECORDS SUMMARY | 2025-01-22 09:34 | XMS_ITS | Encounter Summary ---
Author Organization [facility] Address [address] [place] [address] 7 [place] [address] Care Team Providers Care Cutting Room Supervisor Name Role Phone Jennifer Sampson MD Primary Care Provider [phone] Encounter Details Date Type Department Care Team [...] on filedocumented in this encounter Care Teams Cutting Room Supervisor Relationship Specialty Start Date End Date Jennifer Sampson MD [address] [place] [address] PCP - General Family Medicine 03/06/22 documented as of this encounter
--- OUTSIDE RECORDS SUMMARY | 2025-01-22 09:34 | XMS_ITS | Clinical Summary ---
Author Organization [employer] Address [address] [facility] 7t [place] [address] Care Team Providers Care Automatic Coin Machine Mechanic Name Role Phone Jennifer Sampson MD Primary Care Provider [phone] Social History Tobacco Use Types Packs/Day Years [...] COVID-19 Vaccine ( - 2023-2 5 season) 2024 Influenza Vaccine (#1) 2024 HIB Vaccines Aged Out No longer eligi [...] patient's age to complete this topic Meningococcal B Vaccine Aged Out No l onger eligible based on patient's age to complete this topic Meningococcal Vaccine Aged Out No sonu elan eligible based on patient's age to complete this topic RSV under 20 months Aged Out No longe r eligible based on patient's age to complete this topic Rotavirus Vaccines Aged Out No longer eligible based on patient's age to complete this topic Care Teams Automatic Coin Machine Mechanic Relationship Specialty Start Date End Date [facility] Sampson [facility] [address] [facility] [place] [address] PCP - General Family Medicine 03/06/22
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
== END 2025-01-22 09:17 | disposition home or self-care (01) ==
LOC: HO.HUSH 08:56
PROVIDERS: Visit Provider Urology
DX: C61 Malignant neoplasm of prostate (principal)
CPT/HCPCS: 99213; G2211

== ENCOUNTER → 2025-01-22 08:55 | Outpatient (BNVA) | payer MEDICARE, SELFPAY | PROVIDERS: Visit Provider Urology | DX: C61 Malignant neoplasm of prostate (principal); Z79.890 Hormone replacement therapy | CPT/HCPCS: 99212 ==